=== PATIENT | male | born 1950 | race Caucasian/White ===

== ENCOUNTER 2016-12-25 14:00 | Emergency (ER) | payer MEDICARE, BC ==
[~2016-12-25] VITALS: Ht 190.5 cm; Wt 92.5 kg
[~2016-12-25 14:00] MED LIST: ACETAMINOPHEN-1 EAC1 PO; ASPIR 8181 MG; ATENOLOL50 MG; LISINOPRIL40 MG PO; OXYCODONE HCL5 MG PO; PRILOSEC20 MG; RESTASIS1 DROP OD; SIMVASTATIN40 MG
[2016-12-25] MEDS ORDERED: DILTIAZEM HCL60 MG PO (14:18)
[2016-12-25] MEDS ORDERED: LISINOPRIL20 MG PO (14:19)
[2016-12-25] MEDS ORDERED: CYCLOBENZAPRINE5 MG PO (14:19)
[2016-12-25] MEDS ORDERED: PERCOCET 5-3251 EACH PO (14:21)
[2016-12-25] MEDS ORDERED: MELATONIN5 M2 PO (14:22)
--- NOTE | 2016-12-25 22:28 | EKG ---
[facility] [address] [facility] [place] [address] Signed Normal sinus rhythm Nonspecific intraventricular conduction delay Nonspecific ST abnormality Abnormal ECG When compared with ECG of 26-OCT-2016 10:36, No significant change was found Confirmed by JENNIFER DUMAS MD ([id number]) on 12/25/2016 10:28:27 PM Electronically Signed By: JENNIFER DUMAS MD 12/25/16 2228 PATIENT NAME: JANETTE HURTRICK Electrocardiogram DATE OF : 48 PHYSICIAN: JENNIFER DUMAS MD REPORT #: [id number] REPORT IS CONFIDENTIAL AND NOT TO BE RELEASED WITHOUT AUTHORIZATION
== END 2016-12-25 17:42 | disposition short-term general hospital (02) ==
LOC: ED 14:00
DX: J93.9 Pneumothorax, unspecified (principal); I10 Essential (primary) hypertension; Z85.46 Personal history of malignant neoplasm of prostate; K21.9 Gastro-esophageal reflux disease without esophagitis; Z87.891 Personal history of nicotine dependence; Z79.82 Long term (current) use of aspirin; Z79.899 Other long term (current) drug therapy
CPT/HCPCS: 71020; 80053; 84484; 85025; 93005; 93010; 99285

== ENCOUNTER 2017-04-30 16:20 | Emergency (ER) | payer MEDICARE, BC ==
[~2017-04-30] VITALS: Ht 190.5 cm; Wt 92.5 kg
--- OUTSIDE RECORDS SUMMARY | ~2017-04-30 | XMS | Clinical Summary ---
Demographics + + + | Address | [address] [place] [address] | | | [place] [address] | + + + | Home Phone | | + + + | Preferred Language | Unknown | + + + | Marital Status | | + + + | Yazdanism Affiliation | JAVIER CATHOL | + + + | Race | White | + + + | Ethnic Group | Not or | + + + Author + + + | Author | [facility] | + + + | Organization | [facility] | + + + | Address | Unknown | + + + | Phone | Unavailable | + + + Support + + +---------+ + | Name | Relationship | Address | Phone | + + +---------+ + | JIGNESH RODAS | ECON | Unknown | | + + +---------+ + | LORRAINE RODAS | ECON | Unknown | | + + +---------+ + Care Team Providers + +------+ + | Care Hone Operator Name | Role | Phone | + +------+ + | Mark Roque MD | PP | | + +------+ + Allergies + + + + + + | Active Allergy | Reactions | Severity | Noted | Comments | | | | | Date | | + + + + + + | Nsaids | Other (See Comments) | Low | 05/31/19 | GI PAIN, BLEED | | (Non-Steroidal | | | 14 | | | Anti-Inflammatory | | | | | | Drug) | | | | | + + + + + + Current Medications + + +---------+---------+------+------+-------+ | Prescription | Sig. | Disp. | Refills | Star | End | Statu | | | | | | t | Date | s | | | | | | Date | | | + + +---------+---------+------+------+-------+ | atenolol | Take 50 mg by mouth | | | | | Activ | | (TENORMIN) 50 mg | Daily | | | | | e | | tablet | | | | | | | + + +---------+---------+------+------+-------+ | lisinopril | Take 20 mg by mouth | | | | | Activ | | (PRINIVIL;ZESTRIL) | 2 Times Daily | | | | | e | | 20 mg tablet | | | | | | | + + +---------+---------+------+------+-------+ | simvastatin | Take 40 mg by mouth | | | | | Activ | | (ZOCOR) 40 mg tablet | At Bedtime | | | | | e | + + +---------+---------+------+------+-------+ | omeprazole | Take 20 mg by mouth | | | | | Activ | | (PRILOSEC) 20 mg | Daily | | | | | e | | capsule | | | | | | | + + +---------+---------+------+------+-------+ | aspirin 81 mg EC | Take 81 mg by mouth | | | | | Activ | | tablet | Daily | | | | | e | + + +---------+---------+------+------+-------+ | Cholecalciferol, | Take 2 capsules by | | | | | Activ | | Vitamin D3, (VITAMIN | mouth Daily | | | | | e | | D-3) 2,000 unit Cap | | | | | | | + + +---------+---------+------+------+-------+ | MULTI-VITAMIN ORAL | Take 1 tablet by | | | | | Activ | | | mouth Daily | | | | | e | + + +---------+---------+------+------+-------+ | cycloSPORINE | 1 drop 2 Times Daily | | | | | Activ | | (RESTASIS) 0.05 % | | | | | | e | | ophthalmic emulsion | | | | | | | + + +---------+---------+------+------+-------+ | Melatonin 3 mg Tab | Take 1 tablet by | | | | | Activ | | | mouth Daily | | | | | e | + + +---------+---------+------+------+-------+ | | Take 1 tablet by | | | | | Activ | | ACETAMINOPHEN/DIPHEN | mouth Every Evening | | | | | e | | HYDRAMINE (TYLENOL | | | | | | | | PM ORAL) | | | | | | | + + +---------+---------+------+------+-------+ | | 1 drop As Needed | | | | | Activ | | carboxymethylcellulo | | | | | | e | | se (REFRESH PLUS) | | | | | | | | 0.5 % Dpet | | | | | | | + + +---------+---------+------+------+-------+ | hyoscyamine | Place 1 tablet (125 | 30 | 0 | 04/2 | | Activ | | sulfate (ANASPAZ) | mcg total) under the | tablet | | 3/20 | | e | | 0.125 mg | tongue Every 6 | | | 14 | | | | disintegrating | Hours As Needed | | | | | | | tablet | | | | | | | + + +---------+---------+------+------+-------+ | oxyCODONE | Take 1-2 tablets | 50 | 0 | 04/2 | | Activ | | (ROXICODONE) 5 mg | (5-10 mg total) by | tablet | | 3/20 | | e | | immediate release | mouth Every 3 Hours | | | 14 | | | | tablet | As Needed for Pain | | | | | | | | (moderate) | | | | | | + + +---------+---------+------+------+-------+ | docusate sodium | Take 1 capsule (100 | 60 | 0 | 04/2 | | Activ | | (COLACE) 100 mg | mg total) by mouth 2 | capsule | | 3/20 | | e | | capsule | Times Daily As | | | 14 | | | | | Needed for | | | | | | | | Constipation | | | | | | + + +---------+---------+------+------+-------+ Active Problems + + + | Problem | Noted Date | + + + | Malignant neoplasm of prostate (HCC) | 06/18/2013 | + + + Social History + +-------+ +--------+ + | Tobacco Use | Types | Packs/Day | Years | Date | | | | | Used | | + +-------+ +--------+ + | Former Smoker | | 1 | 25 | Quit: 03/01/1988 | + +-------+ +--------+ + + +---+---+---+ | Smokeless Tobacco: | | | | | Never Used | | | | + +---+---+---+ + + | Comments: A CIGAR 1/WEEK | + + + + +---------+ + | Alcohol Use | Drinks/We | oz/Week | Comments | | | ek | | | + + +---------+ + | Yes | 4 | 9.6 | | | | Glasses | | | | | of wine | | | | | 12 Shots | | | | | of liquor | | | + + +---------+ + + + + | Sex Assigned at | Date Recorded | | | | + + + | Not on file | | + + + Last Filed Vital Signs + + + + | Vital Sign | Reading | Time Taken | + + + + | Blood Pressure | 134/72 | 06/18/2013 11:35 AM PDT | + + + + | Pulse | 51 | 06/18/2013 11:35 AM PDT | + + + + | Temperature | 36.4 C (97.5 F) | 06/18/2013 11:35 AM PDT | + + + + | Respiratory Rate | 16 | 06/18/2013 11:35 AM PDT | + + + + | Oxygen Saturation | 96% | 06/18/2013 11:35 AM PDT | + + + + | Inhaled Oxygen | - | - | | Concentration | | | + + + + | Weight | 100 kg (220 lb 7.4 | 06/18/2013 3:56 AM PDT | | | oz) | | + + + + | Height | 190.5 cm (6' 3") | 06/17/2013 10:33 AM PDT | + + + + | Body Mass Index | 27.56 | 06/18/2013 3:56 AM PDT | + + + + Plan of Treatment + + + + + | Health Maintenance | Due Date | Last Done | Comments | + + + + + | AAA Screening | | | | | | 9 | | | + + + + + | Hep C Ab Screening | | | | | | 9 | | | + + + + + | Tetanus | | | | | | 8 | | | + + + + + | Colon Cancer | | | | | Screening | 9 | | | + + + + + | Zoster Vaccine | | | | | | 9 | | | + + + + + | Pneumo 65+ (1 of 2 - | | | | | PCV13) | 4 | | | + + + + + | IMM Influenza (#1) | | | | | | 7 | | | + + + + + Results Not on filefrom Last 3 Months Insurance + +--------+ +--------+ + + | Payer | Benefi | Subscriber | Type | Phone | Address | | | t Plan | ID | | | | | | / | | | | | | | Group | | | | | + +--------+ +--------+ + + | BLUE CROSS | BLUE | [id number] | Indemn | [phone] [address] | | | CROSS | | [place] | [phone] | [place] | | | [place] | | | | [phone] | | | L | | | | | | | MCARE | | | | | | | SUPPLE | | | | | | | MENT | | | | | + +--------+ +--------+ + + | MEDICARE | MEDICA | [id number] | Medica | [phone] [address] | | | RE A & | | re | [phone] | [place] [phone] | | | B | | | | | + +--------+ +--------+ + + + +--------+ +--------+ + + | Guarantor Name | Accoun | Relation to | Date | Phone | Billing Address | | | t Type | Patient | of | | | | | | | | | | + +--------+ +--------+ + + | JANETTE RODAS | Person | Self [birth year] | Home: | [address] | | | al/Fam | | 1950 | [phone] [place] | | | [place] | | | [phone] | + +--------+ +--------+ + + Advance Directives Patient has advance directives. For more information, please contact:[employer] [place] [address]
--- OUTSIDE RECORDS SUMMARY | ~2017-04-30 | XMS | Clinical Summary ---
Demographics + + + | Address | [address] | | | [place] [address] | + + + | Home Phone | | + + + | Preferred Language | Unknown | + + + | Marital Status | | + + + | Jain Affiliation | Unknown | + + + | Race | Unknown | + + + | Ethnic Group | Other Race | + + + Author + + + | Author | [facility] | + + + | Organization | [facility] | + + + | Address | Unknown | + + + | Phone | Unavailable | + + + Care Team Providers + +------+ + | Care Pediatric Assistant Name | Role | Phone | + +------+ + PP | Unavailable | + +------+ + Source Comments VETO is fully live on both [facility] and [facility] InPatient.[facility] Allergies Not on File Current Medications Not on file Active Problems Not on file Social History + +-------+ +--------+------+ | Tobacco [...] on file | | + + + Plan of Treatment + + + + + | Health Maintenance | Due Date | Last Done | Comments | + + + + + | INFLUENZA VACCINE | | | | | (FLU SHOT) | 7 | | | + + + + + Results Not on filefrom Last 3 Months"
--- OUTSIDE RECORDS SUMMARY | ~2017-04-30 | XMS | Clinical Summary ---
Demographics + + + | Address | [address] | | | [place] [address] | + + + | Home Phone | | + + + | Preferred Language | Unknown | + + + | Marital Status | | + + + | Congregation Affiliation | Unknown | + + + | Race | Unknown | + + + | Ethnic Group | Other Race | + + + Author + + + | Author | [facility] | + + + | Organization | [facility] | + + + | Address | Unknown | + + + | Phone | Unavailable | + + + Care Team Providers + +------+ + | Care Nail Professional Name | Role | Phone | + +------+ + PP | Unavailable | + +------+ + Source Comments VETO is fully live on both [facility] and [facility] InPatient.[facility] Allergies Not on File Current Medications Not [...]
--- OUTSIDE RECORDS SUMMARY | ~2017-04-30 | XMS | Clinical Summary ---
Demographics + + + | Address | [address] [place] [address] | | | [place] [address] | + + + | Home Phone | | + + + | Preferred Language | Unknown | + + + | Marital Status | | + + + | Buddhism Affiliation | JAVIER CATHOL | + + [...] Team Providers + +------+ + | Care Environmental Law Professor Name | Role | Phone | + [...] + | BLUE CROSS | BLUE | [id number] | Indemn | [phone] | [address] | | | CROSS | | [place] | [phone] | [place] | | | [place] | | | | [phone] | | | L | | | | | | | MCARE | | | | | | | SUPPLE | | | | | | | MENT | | | | | + +--------+ +--------+ + + | MEDICARE | MEDICA | [id number] | Medica | [phone] | [address] | | | RE A & | | re | [phone] | [place] [address] | | | B | | | [...] | | | [place] | | | [phone] | [phone] | + +--------+ +--------+ + + Advance Directives Patient has advance directives. For more information, please contact:[employer] [place] [address]
[~2017-04-30 16:20] MED LIST changes: +CYCLOBENZAPRINE5 MG PO; +DILTIAZEM HCL60 MG PO; +LISINOPRIL20 MG PO; +MELATONIN5 M2 PO; +PERCOCET 5-3251 EACH PO
== END 2017-04-30 17:27 | disposition home or self-care (01) ==
LOC: ED 16:20
PROC: 0HQGXZZ Repair Left Hand Skin, External Approach (ICD-10-PCS; principal; 2017-04-30)
DX: S61.412A Laceration without foreign body of left hand, initial encounter (principal); I10 Essential (primary) hypertension; Z87.891 Personal history of nicotine dependence; Z88.6 Allergy status to analgesic agent; Z79.82 Long term (current) use of aspirin; Z79.899 Other long term (current) drug therapy; W27.8XXA Contact with other nonpowered hand tool, initial encounter
CPT/HCPCS: 12001; 99282

== ENCOUNTER 2019-01-31 18:12 | Emergency (ER) | payer MEDICARE, BC ==
[~2019-01-31] VITALS: Ht 190.5 cm; Wt 96.2 kg
--- OUTSIDE RECORDS SUMMARY | ~2019-01-31 | XMS | Clinical Summary ---
Demographics + + + | Address | [address] | | | [place] [address] | + + + | Home Phone | | + + + | Preferred Language | Unknown | + + + | Marital Status | | + + + | Sabianism Affiliation | CAT | + + + | Race | White | + + + | Ethnic Group | Not or | + + + Author + + + | Author | [facility] | + + + | Organization | [facility] | + + + | Address | Unknown | + + + | Phone | Unavailable | + + + Support + + + + + | Name | Relationship | Address | Phone | + + + + + | Yancy Rodas | ECON | [address] | | | | | [place] | | | | | [address] | | + + + + + Care Team Providers + +------+ + | Care Supervisor Shellfish Farming Name | Role | Phone | + +------+ + | Rosangela Bro MD | PCP | | + +------+ + Source Comments VETO is fully live on both [facility] and [facility] InPatient.[facility] Allergies No Known Allergies Medications + + + +---------+------+------+-------+ | Medication | Sig | Dispensed | Refills | Star | End | Statu | | | | | | t | Date | s | | | | | | Date | | | + + + +---------+------+------+-------+ | dilTIAZem 90 mg | Take 90 mg by mouth | | 0 | | | Activ | | oral tablet | three times daily. | | | | | e | + + + +---------+------+------+-------+ | lisinopril 20 mg | Take 20 mg by mouth | | 0 | | | Activ | | oral tablet | two times daily. | | | | | e | + + + +---------+------+------+-------+ | simvastatin 40 mg | Take 40 mg by mouth | | 0 | | | Activ | | oral tablet | once daily. | | | | | e | + + + +---------+------+------+-------+ | aspirin chewable | Chew and swallow 81 | | 0 | | | Activ | | 81 mg oral | mg once daily. | | | | | e | | tablet,chewable | | | | | | | + + + +---------+------+------+-------+ | multivitamin oral | Take 1 tablet by | | 0 | | | Activ | | tablet | mouth twice weekly | | | | | e | | | (on Sunday and | | | | | | | | Sunday). | | | | | | + + + +---------+------+------+-------+ | nitroglycerin 0.4 | Place 0.4 mg under | | 0 | | | Activ | | mg sublingual | tongue every five | | | | | e | | tablet, | minutes as needed | | | | | | | sublingualIndication | for chest pain. | | | | | | | s: took two doses | Place under tongue | | | | | | | this am | and allow to | | | | | | | | dissolve. | | | | | | | | Administer every 5 | | | | | | | | minutes, max of 3 | | | | | | | | doses in 15 minutes. | | | | | | | | Indications: took | | | | | | | | two doses this am | | | | | | + + + +---------+------+------+-------+ | imipramine 25 mg | Take 25 mg by mouth | | 0 | | | Activ | | oral tablet | once daily at | | | | | e | | | bedtime. | | | | | | + + + +---------+------+------+-------+ | melatonin 2.5 mg | Chew and swallow | | 0 | | | Activ | | oral tablet,chewable | once daily at | | | | | e | | | bedtime. | | | | | | + + + +---------+------+------+-------+ Active Problems Not on file Resolved Problems + + + + | Problem | Noted | Resolved | | | Date | Date | + + + + | Chest pain at rest | 11/06/19 | | | | 18 | 8 | + + + + Social History + + + +--------+------+ | Tobacco Use | Types | Packs/Day | Years | Date | | | | | Used | | + + + +--------+------+ | Former Smoker | Cigarettes, Cigars | 1 | | | + + + +--------+------+ + +---+---+---+ | Smokeless Tobacco: | | | | | Never Used | | | | + +---+---+---+ + + | Tobacco Cessation: Counseling Given: No | + + + + +---------+ + | Alcohol Use | Drinks/Week | oz/Week | Comments | + + +---------+ + | Yes | | | two drinks a day | + + +---------+ + + + + | Sex Assigned at | Date Recorded | | | | + + + | Not on file | | + + + + + + + | Job Start Date | Occupation | Industry | + + + + | Not on file | Not on file | Not on file | + + + + + + + + | Travel History | Travel Start | Travel End | + + + + + + | No recent travel history available. | + + Last Filed Vital Signs + + + + + | Vital Sign | Reading | Time Taken | Comments | + + + + + | Blood Pressure | 131/73 | 11/06/2017 8:30 AM | | | | | PDT | | + + + + + | Pulse | 65 | 11/06/2017 8:30 AM | | | | | PDT | | + + + + + | Temperature | 36.4 C (97.5 F) | 11/06/2017 8:30 AM | | | | | PDT | | + + + + + | Respiratory Rate | 16 | 11/06/2017 8:30 AM | | | | | PDT | | + + + + + | Oxygen Saturation | 100% | 11/06/2017 8:30 AM | | | | | PDT | | + + + + + | Inhaled Oxygen | - | - | | | Concentration | | | | + + + + + | Weight | 96.1 kg (211 lb 13.8 | 11/06/2017 6:23 AM | | | | oz) | PDT | | + + + + + | Height | 190.5 cm (6' 3") | 11/05/2017 10:22 AM | | | | | PDT | | + + + + + | Body Mass Index | 26.48 | 11/05/2017 10:22 AM | | | | | PDT | | + + + + + Plan of Treatment + + + + + | Health Maintenance | Due Date | Last Done | Comments | + + + + + | Pneumococcal | | | | | vaccination (1 of 2 | 4 | | | | - PCV13) | | | | + + + + + | Influenza (Flu) | | | | | vaccination (#1) | 9 | | | + + + + + Results Not on filefrom Last 3 Months Insurance + +--------+ +--------+ + +--------+ | Payer | Benefi | Subscriber | Effect | Phone | Address | Type | | | t Plan | ID | jim | | | | | | / | | Dates | | | | | | Group | | | | | | + +--------+ +--------+ + +--------+ | MEDICARE | MEDICA | xxxxxxxxxxx | Effect | [phone] | [address] | Medica | | | RE A & | | jim | [address] | [phone] | [address] | | | B | | for | | [place], [place] | | | | | | all | | [phone] | | | | | | dates | | | | + +--------+ +--------+ + +--------+ | [place] | BLUE | xxxxxxxxx | Effect | [phone] | [address] | PPO | | | CROSS | | jim | [address] | [phone] | | | | [place] | | for | | [place], | | | | L | | all | | [place] [address] | | | | | | dates | | | | + +--------+ +--------+ + +--------+ | MEDICARE | MEDICA | xxxxxxxxxxx | | [phone] | [address] | Medica | | | RE A & | | [phone] | [address] | [phone] | re | | | B | | esent | | [place], [place] | | | | | | | | [address] | | + +--------+ +--------+ + +--------+ | [place] | BLUE | xxxxxxxxx | 02/26/19 | [phone] | [address] | PPO | | | CROSS | | [phone] | [phone] | [phone] | | | | [place] | | sent | | [place], | | | | [place] | | | | [place] [address] | | + +--------+ +--------+ + +--------+ + +--------+ +--------+ + + | Guarantor Name | Accoun | Relation to | Date | Phone | Billing Address | | | t Type | Patient | of | | | | | | | | | | + +--------+ +--------+ + + | Faustino Rodas | Person | Self [birth year] | [address] | | | al/Fam | | 1950 | [phone] | [place] [address] | | | [place]men | | | 2 (Home) | | + +--------+ +--------+ + + | Faustino Rodas | Person | Self [birth year] | [address] | | | al/Fam | | 1950 | [phone] | [place] [address] | | | carmen | | | 2 (Home) | | + +--------+ +--------+ + + Advance Directives + + + + + | Code Status | Date | Date | Comments | | | Activated | Inactivated | | + + + + + | Full Code | 11/05/2017 | 11/06/2017 | | | | 10:21 AM | 3:10 PM | | + + + + +
--- OUTSIDE RECORDS SUMMARY | ~2019-01-31 | XMS | Encounter Summary ---
Demographics + + + | Address | [address] | | | [place] [address] | + + + | Home Phone | | + + + | Preferred Language | Unknown | + + + | Marital Status | | + + + | Sabianism Affiliation | CAT | + + + | Race | White | + + + | Ethnic Group | Not or | + + + Author + + + | Organization | Unknown | + + + | Address | Unknown | + + + | Phone | Unavailable | + + + Support + + + + + | Name | Relationship | Address | Phone | + + + + + | Yancy Rodas | ECON | [address] | | | | | [place] | | | | | [address] | | + + + + + Care Team Providers + +------+ + | Care Drill Operator Pneumatic Name | Role | Phone | + +------+ + PCP | Unavailable | + +------+ + Encounter Details +--------+ + + + + | Date | Type | Department | Care Team | Description | +--------+ + + + + | 10/08/ | Results | | Other, Faculty | | | 2001 | Only | | [phone] | | +--------+ + + + + Social History + +-------+ +--------+------+ | Tobacco Use | Types | Packs/Day | Years | Date | | | | | Used | | + +-------+ +--------+------+ | Never Assessed | | | | | + +-------+ +--------+------+ + + + | Sex Assigned at [...] recent travel history available. | + + documented as of this encounter Plan of Treatment Not on filedocumented as of this encounter Procedures + +--------+ + + + | Procedure Name | Priori | Date/Time | Associated Diagnosis | Comments | | | ty | | | | + +--------+ + + + | SURGICAL PATHOLOGY | Routin | 10/08/2001 | | Results for this | | | e | | | procedure are in the | | | | | | results section. | + +--------+ + + + documented in this encounter Results SURGICAL PATHOLOGY (10/08/2001) + + + + + + | Component | Value | Ref Range | Performed | Pathologist | | | | | At | Signature | + + + + + + | SURGICAL | THIS IS AN AMENDED | | [facility] | | | PATHOLOGY | REPORT SOURCE OF | | DEPARTMENT | | | | SPECIMEN:A Muscle, | | OF | | | | Biopsy for Neuropath | | PATHOLOGY | | | | Final Pathologic | | | | | | Diagnosis:This case is | | | | | | amended to include the | | | | | | EM results. The | | | | | | diagnosis is amended | | | | | | asfollows: Skeletal | | | | | | muscle, left deltoid, | | | | | | biopsy:Ultrastructural | | | | | | Analysis (EM #[id number]): | | | | | | - No specific | | | | | | ultrastructural | | | | | | pathologic abnormalities | | | | | | Histologic | | | | | | Analysis:Skeletal | | | | | | muscle, left deltoid, | | | | | | biopsy: - Mild | | | | | | nonspecific changes | | | | | | (see comment) Comment: | | | | | | This biopsy | | | | | | demonstrates a small | | | | | | number of ragged red | | | | | | fibers aswell as a small | | | | | | number of cytochrome | | | | | | oxidase deficient | | | | | | fibers. These raisethe | | | | | | possibility of a | | | | | | mitochondrial disorder, | | | | | | although I do not | | | | | | finddefinitive evidence | | | | | | for this on this biopsy. | | | | | | Other conditions may | | | | | | besuggested by the | | | | | | clinical presentation | | | | | | and additional studies | | | | | | can beperformed as | | | | | | clinically indicated. | | | | | | Case Amended by:Jaden | | | | | | Renuka García M.D. | | | | | | /NeuropathologistT:10/30 | | | | | | /02:re I have reviewed | | | | | | all diagnostic slides | | | | | | and have edited the | | | | | | gross and/ormicroscopic | | | | | | portion of this report | | | | | | as part of my pathologic | | | | | | assessment andfinal | | | | | | diagnosis. Clinical | | | | | | History:The patient is a | | | | | | 51 year old male who | | | | | | was found on laboratory | | | | | | examinationto have | | | | | | elevated CK enzymes. | | | | | | Additional evaluation | | | | | | excluded a | | | | | | cardiacsource. | | | | | | Medications include | | | | | | Atenolol and Aspirin. | | | | | | Gross | | | | | | Description:Received | | | | | | from Dr. Faustino Ng, | | | | | | [facility] | | | | | | [facility] [place], | | | | | | is a 1.5 x 1.1 x 1.0 cm | | | | | | fragment of tissue | | | | | | wrapped in moist | | | | | | gauze.Additionally, a | | | | | | small fragment has been | | | | | | received in | | | | | | glutaraldehyde. | | | | | | Microscopic | | | | | | Description/Histochemica | | | | | | l Analysis: Frozen | | | | | | sections arestained at | | | | | | several levels with | | | | | | hematoxylin and eosin, | | | | | | trichrome, SDH, | | | | | | NADH,cytochrome oxidase, | | | | | | and ATPase (pH 4.5 and | | | | | | 9.4), and PAS with and | | | | | | withoutdiastase | | | | | | digestion. The | | | | | | hematoxylin and eosin | | | | | | stained sections show an | | | | | | ample sized fragment | | | | | | ofskeletal muscle with | | | | | | moderate artifactual | | | | | | disruption with focal | | | | | | areas ofsevere | | | | | | disruption. No | | | | | | inflammation is | | | | | | identified. I do not | | | | | | see clearevidence of | | | | | | degenerating or | | | | | | regenerating fibers, | | | | | | however, there | | | | | | arequestionable fibers | | | | | | in regions of | | | | | | disruption. There is | | | | | | mild endomysialfibrosis. | | | | | | The muscle fibers | | | | | | show a relatively | | | | | | uniform size of | | | | | | 50-70microns in | | | | | | diameter. There is no | | | | | | increase in the number | | | | | | of central nucleiand no | | | | | | subsarcolemmal nuclear | | | | | | collections are present. | | | | | | The trichromestains | | | | | | shows three ragged red | | | | | | fibers towards the | | | | | | periphery of the | | | | | | specimenin areas of mild | | | | | | disruption. In other | | | | | | regions of the biopsy, | | | | | | there is aslight | | | | | | increase in | | | | | | subsarcolemmal staining. | | | | | | No rimmed vacuoles | | | | | | areidentified. The SDH | | | | | | stain highlights the | | | | | | three ragged red fibers, | | | | | | as wellas the fibers | | | | | | with increased rimming. | | | | | | NADH stains show | | | | | | similar findings,in | | | | | | addition, they reveal a | | | | | | modest number of | | | | | | crescents as well as | | | | | | fiberswith a moth-eaten | | | | | | disruption of the | | | | | | myofibrillar matrix. | | | | | | No cores ortargets are | | | | | | identified. The | | | | | | cytochrome oxidase stain | | | | | | reveals a smallnumber | | | | | | of deficient fibers | | | | | | (including the ragged | | | | | | red type fibers), | | | | | | however,I do not feel | | | | | | that this is clearly | | | | | | increased for a patient | | | | | | of this age.ATPase | | | | | | stains show a type 1 to | | | | | | type 2 fiber ratio of | | | | | | approximately | | | | | | 1:1-2,without evidence | | | | | | of neurogenic | | | | | | rearrangement. The PAS | | | | | | stains with andwithout | | | | | | diastase digestion do | | | | | | not show evidence of | | | | | | increased glycogen. | | | | | | Electron Microscopy EM | | | | | | #[id number]:Plastic embedded | | | | | | toluidine blue stained | | | | | | thin sections are | | | | | | examined. Thesereveal | | | | | | portions of variably | | | | | | preserved skeletal | | | | | | muscle in | | | | | | longitudinal,tangential, | | | | | | and cross section. | | | | | | There is a mild | | | | | | variation of muscle | | | | | | fiberdiameters, but no | | | | | | other pathologic | | | | | | abnormalities are | | | | | | identified.Specifically, | | | | | | no evidence of vacuolar | | | | | | degeneration or of | | | | | | subsarcolemmalaccumulati | | | | | | ons are appreciated. A | | | | | | territory representative portion | | | | | | is submitted | | | | | | forultrastructural | | | | | | analysis. No | | | | | | abnormalities are | | | | | | identified by electron | | | | | | microscopy. The | | | | | | myofibrilshave a normal | | | | | | register. No | | | | | | abnormalities of the | | | | | | basal lamina | | | | | | areappreciated. There | | | | | | are no abnormalities in | | | | | | glycogen or lipid | | | | | | contents.Mitochondria | | | | | | are present in normal | | | | | | numbers and demonstrate | | | | | | normal size,shape, and | | | | | | internal cristae | | | | | | structure. Small | | | | | | subsarcolemmal | | | | | | accumulationsof | | | | | | mitochondria are | | | | | | present, however, these | | | | | | are of unclear | | | | | | significance. | | | | | | Pre-Amended Final | | | | | | Pathologic | | | | | | Diagnosis:Skeletal | | | | | | muscle, left deltoid, | | | | | | biopsy: - Mild | | | | | | nonspecific changes | | | | | | (see comment) Comment: | | | | | | This biopsy | | | | | | demonstrates a small | | | | | | number of ragged red | | | | | | fibers aswell as a small | | | | | | number of cytochrome | | | | | | oxidase deficient | | | | | | fibers. These raisethe | | | | | | possibility of a | | | | | | mitochondrial disorder, | | | | | | although I do not | | | | | | finddefinitive evidence | | | | | | for this on this biopsy. | | | | | | Other conditions may | | | | | | besuggested by the | | | | | | clinical presentation | | | | | | and additional studies | | | | | | can beperformed as | | | | | | clinically indicated. | | | | | | Case reviewed by:Jaden | | | | | | Renuka García M.D. | | | | | | /NeuropathologistT:10/14 | | | | | | /fOriginal sign out | | | | | | date on 10/14/01 by | | | | | | Jaden García, | | | | | | Ph.D.,M.D./Neuropatholog | | | | | | istRendering | | | | | | Diagnostician: Jaden | | | | | | García | | | | | | M.D.,Ph.D.PathologistEle | | | | | | ctronically Signed | | | | | | 10/30/2001Comment: | | | | | | SOURCE OF SPECIMEN: | | | | | | Muscle, Biopsy for | | | | | | Neuropath | | | | + + + + + + + + | Specimen | + + | | + + + + + | Narrative | Performed At | + + + | Ordered by [facility] | | | DEPARTMENT OF | | | PATHOLOGY | + + + + + + + + | Performing | Address | City/State/Zipcode | Phone Number | | Organization | | | | + + + + + | [facility] | [address] | [place] [address] | | | PATHOLOGY | [address] | | | + + + + + | [facility] DEPARTMENT OF | [address] | [place] [address] | | | PATHOLOGY | [facility] | | | + + + + + documented in this encounter Visit Diagnoses Not on filedocumented in this encounter"
--- OUTSIDE RECORDS SUMMARY | ~2019-01-31 | XMS | Encounter Summary ---
Demographics + + + | Address | [address] | | | [place] [address] | + + + | Home Phone | | + + + | Preferred Language | Unknown | + + + | Marital Status | | + + + | Rastafari Affiliation | 1041 | + + + | Race | Unknown | + + + | Ethnic Group | Unknown | + + + Author + + + | Author | [facility] | | | and [place] | + + + | Organization | [facility] | | | and [place] | + + + | Address | Unknown | + + + | Phone | Unavailable | + + + Support + + + + + | Name | Relationship | Address | Phone | + + + + + | Yancy Rodas | ECON | [address] | | | | | [place] | | | | | [address] | | + + + + + Care Team Providers + +------+ + | Care Factory Process Workers Name | Role | Phone | + +------+ + PCP | Unavailable | + +------+ + Encounter Details +--------+ + + + + | Date | Type | Department | Care Team | Description | +--------+ + + + + | 07/26/ | [facility] | [facility] | Faustino Price MD | | | 2010 | Encounter | MED CTR MP INTRA OP | [address], [place] | | | | | [address] | [address] [place] | | | | | [place] | [address] | | | | | [address] | | | | | | [phone] | | | +--------+ + + + + [...] | + +--------+ + + + | HELICOBACTER PYLORI | Routin | 07/26/2010 | | Results for this | | BIOPSY | e | 1:11 PM | | procedure are in the | | | | PDT | | results section. | + +--------+ + + + documented in this encounter Results Helicobactor pylori Biopsy (07/26/2010 1:11 PM PDT) + + + + + + | Component | Value | Ref Range | Performed | Pathologist | | | | | At | Signature | + + + + + + | GASTRIC | Negative for Urease | | [facility] | | | BIOPSY | | | [facility] | | | UREASE TEST | | | [facility]ICAL | | | | | | [facility] - | | | | | | LABORATORY | | + + + + + + + + | Specimen | + + | | + + + + + + + | Performing | Address | City/State/Zipcode | Phone Number | | Organization | | | | + + + + + | [facility] | [address] | [place], [place] | [phone] | | [facility] | | [address] | | | - LABORATORY | | | | + + + + + | [facility] | [address] | [place] | | | [facility] | | [address] | | | - LABORATORY | | | | + + + + + documented in this encounter Visit Diagnoses Not on filedocumented in this encounter"
--- OUTSIDE RECORDS SUMMARY | ~2019-01-31 | XMS | Encounter Summary ---
Demographics + + + | Address | [address] | | | [place] [address] | + + + | Home Phone | | + + + | Preferred Language | Unknown | + + + | Marital Status | | + + + | Advent Affiliation | 1041 | + + + | Race | Unknown | + + + | Ethnic Group | Unknown | + + + Author + + + | Author | [facility] | | | and [place] | + + + | Organization | [facility] | | | and [place] | [...] [place] | | | | | [address] | | + + + + + Care Team Providers + +------+ + | Care Laborer Carpentry Dock Name | Role | Phone | + +------+ + | Manjit Roque MD | PCP | | + +------+ + Reason for Visit +--------+ + | Reason | Comments | +--------+ + | Other | | +--------+ + Encounter Details +--------+ + + + + | Date | Type | Department | Care Team | Description | +--------+ + + + + | 05/02/ | Telephone | [facility] | Faustino Price MD | Other | | 2012 | | GASTROENTEROLOGY | [address], [place] | | | | | [address] | [address] [place], [place] | | | | | [address] [place], [place] | [address] | | | | | [address] | | | | | | [phone] | | | +--------+ + + + + Social History + +--------+ +--------+------+ | Tobacco Use | Types | Packs/Day | Years | Date | | | | | Used | | + +--------+ +--------+------+ | Current Some Day | Cigars | | | | | Smoker | | | | | + +--------+ +--------+------+ + +---+---+---+ | Smokeless Tobacco: | | | | | Never Used | | | | + +---+---+---+ + + +---------+ + | Alcohol Use | Drinks/Week | oz/Week | Comments | + + +---------+ + | Yes | | | socially | + + +---------+ + + + [...] Not on filedocumented as of this encounter Visit Diagnoses Not on filedocumented in this encounter"
--- OUTSIDE RECORDS SUMMARY | ~2019-01-31 | XMS | Encounter Summary ---
Demographics + + + | Address | [address] | | | [place] [address] | + + + | Home Phone | | + + + | Preferred Language | Unknown | + + + | Marital Status | | + + + | Congregational Affiliation | 1041 | + + + | Race | Unknown | + + + | Ethnic Group | Unknown | + + + Author + + + | Author | [facility] | | | and [place] | + + + | Organization | [facility] | | | and [place] | + + + | Address | Unknown | + + + | Phone | Unavailable | + + + Support + + + + + | Name | Relationship | Address | Phone | + + + + + | Yancy Rodas | ECON | [address] | | | | | [place] | | | | | [address] | | + + + + + Care Team Providers + +------+ + | Care Centrifuge Separator Operator Name | Role | Phone | + +------+ + | Manjit Roque MD | PCP | | + +------+ + Encounter Details +--------+ + + + + | Date | Type | Department | Care Team | Description | +--------+ + + + + | 09/23/ | Orders Only | [facility] | Provider, | | | 2018 | | SYSTEM GENERIC OP | [address] | | | | | [address] | [address] | | | | | [address] [place], [place] | [place] [address] | | | | | [address] | | | | | | [phone] | | | +--------+ + + + + Social History + +--------+ +--------+------+ | Tobacco Use | Types | Packs/Day | Years | Date | | | | | Used | | + +--------+ +--------+------+ | Former Smoker | Cigars | | | | + +--------+ +--------+------+ + +---+---+---+ | Smokeless Tobacco: | | | | | Never Used | | | | + +---+---+---+ + + | Comments: occaisonal cigar use, nothing for the past 1.5 years | + + + + +---------+ + | Alcohol Use | Drinks/Week | oz/Week | Comments | + + +---------+ + | Yes | | | Alcoholic | | | | | Drinks/day: daily | + + +---------+ + + + [...]
--- OUTSIDE RECORDS SUMMARY | ~2019-01-31 | XMS | Encounter Summary ---
Demographics + + + | Address | [address] | | | [place] [address] | + + + | Home Phone | | + + + | Preferred Language | Unknown | + + + | Marital Status | | + + + | Taoism Affiliation | 1041 | + + + | Race | Unknown | + + + | Ethnic Group | Unknown | + + + Author + + + | Author | [facility] | | | and [place] | + + + | Organization | [facility] | | | and [place] [...] [place] | | | | | [address] | | + + + + + Care Team Providers + +------+ + | Care Cement Mixer Driver Name | Role | Phone | + +------+ + PCP | Unavailable | + +------+ + Encounter Details +--------+ + + + + | Date | Type | Department | Care Team | Description | +--------+ + + + + | 07/26/ | [facility] | [facility] | Faustino Price MD | | | 2010 | Encounter | MED CTR MP INTRA OP | [address], [place] | | | | | [address] | [address] [place] | | | | | [place] | [address] | | | | | [address] | | | | | | [phone] | | | +--------+ + + + [...] ST. | [address] | [place], [place] | [phone] | | [facility] | | [address] | | | - LABORATORY | | | | + + + + + | [facility] | [address] | [place] | | | [facility] | | [address] | | | - LABORATORY | | | | + + + + + documented in this encounter Visit Diagnoses Not on filedocumented in this encounter"
--- OUTSIDE RECORDS SUMMARY | ~2019-01-31 | XMS | Encounter Summary ---
Demographics + + + | Address | [address] | | | [place] [address] | + + + | Home Phone | | + + + | Preferred Language | Unknown | + + + | Marital Status | | + + + | Zoroastrianism Affiliation | 1041 | + + + | Race | Unknown | + + + | Ethnic Group | Unknown | + + + Author + + + | Author | [facility] | | | and [place] | + + + | Organization | [facility] | | | and [place] | + + + | Address | Unknown | + + + | Phone | Unavailable | + + + Support + + + + + | Name | Relationship | Address | Phone | + + + + + | Yancy Rodas | ECON | [address] | | | | | [place], [place] | | | | | [address] | | + + + + + Care Team Providers + +------+ + | Care Small Engine Specialist Name | Role | Phone | + +------+ + PCP | Unavailable | + +------+ + Encounter Details +--------+ + + + + | Date | Type | Department | Care Team | Description | +--------+ + + + + | 07/16/ | Hospital | [facility] | | | | 1991 | Encounter | MED CTR XRAY [address] | | | | | [address] [place] | | | | | | [place] [address] | | | | | | [phone] | | | +--------+ + + + [...]
--- OUTSIDE RECORDS SUMMARY | ~2019-01-31 | XMS | Encounter Summary ---
Demographics + + + | Address | [address] | | | [place] [address] | + + + | Home Phone | | + + + | Preferred Language | Unknown | + + + | Marital Status | | + + + | Methodist Affiliation | 1041 | + + + | Race | Unknown | + + + | Ethnic Group | Unknown | + + + Author + + + | Author | [facility] | | | and [place] | + + + | Organization | [facility] | | | and [place] | + + + | Address | Unknown | + + + | Phone | Unavailable | + + + Support + + + + + | Name | Relationship | Address | Phone | + + + + + | Yancy Rodas | ECON | [address] | | | | | [place] | | | | | [address] | | + + + + + Care Team Providers + +------+ + | Care Knife Sharpener Name | Role | Phone | + +------+ + | Manjit Roque MD | PCP | | + +------+ + Encounter Details +--------+ + + + + | Date | Type | Department | Care Team | Description | +--------+ + + + + | 04/18/ | Abstract | [facility] | Faustino Price MD | | | 2012 | | GASTROENTEROLOGY | [address], [place] | | | | | [address] | [address] [place], [place] | | | | | [address] [place], [place] | [address] | | | | | [address] | | | | | | [phone] | | | +--------+ + + + + Social History + +-------+ +--------+------+ | Tobacco Use | Types | Packs/Day | Years | Date | | | | | Used | | + +-------+ +--------+------+ | Current Some Day | | | | | | Smoker | | | | | + +-------+ +--------+------+ + + +---------+ + | Alcohol Use [...]
--- OUTSIDE RECORDS SUMMARY | ~2019-01-31 | XMS | Encounter Summary ---
Demographics + + + | Address | [address] | | | [place] [address] | + + + | Home Phone | | + + + | Preferred Language | Unknown | + + + | Marital Status | | + + + | Zoroastrianism Affiliation | 1041 | + + + | Race | Unknown | + + + | Ethnic Group | Unknown | + + + Author + + + | Author | [facility] | | | and Markana | + + + | Organization | [facility] | | | and Markana | + + + | Address | Unknown | + + + | Phone | Unavailable | + + + Support + + + + + | Name | Relationship | Address | Phone | + + + + + | Yancy Rodas | ECON | [address] | | | | | [place] | | | | | [address] | | + + + + + Care Team Providers + +------+ + | Care Employment Service Specialist Name | Role | Phone | + +------+ + | Manjit Roque MD | PCP | | + +------+ + Encounter Details +--------+ + + + + | Date | Type | Department | Care Team | Description | +--------+ + + + + | 04/30/ | [facility] | [facility] | Faustino Price MD | | | 2012 | Encounter | MED CTR MP INTRA OP | [address], [place] | | | | | [address] | [address] [place], [place] | | | | | [place], [place] | [address] | | | | | [address] | | | | | | [phone] | | | +--------+ + + + [...] + + documented as of this encounter Medications at Time of Discharge + + + +---------+ + + | Medication | Sig | Dispensed | Refills | Start | End Date | | | | | | Date | | + + + +---------+ + + | aspirin (ASPIRIN | Take 81 mg by mouth | | 0 | 11/10/19 | | | LOW DOSE) 81 MG | Daily. | | | 12 | | | tablet | | | | | | + + + +---------+ + + | atenolol | Take 25 mg by mouth | | 0 | 11/10/19 | | | (TENORMIN) 25 mg | Daily. | | | 12 | | | tablet | | | | | | + + + +---------+ + + | Calcium | TABS one by mouth | | 0 | 11/10/19 | | | Carbonate-Vitamin D | daily | | | 12 | | | (CALCIUM + D PO) | | | | | | + + + +---------+ + + | Cholecalciferol | Take 2,000 Units by | | 0 | | | | (VITAMIN D3) 2000 | mouth Daily. | | | | | | UNITS CAPS | | | | | | + + + +---------+ + + | cyclobenzaprine | Take 10 mg by mouth | | 0 | | | | (FLEXERIL) 10 mg | 3 times daily as | | | | | | tablet | needed. | | | | | + + + +---------+ + + | | Take 1-2 tablets by | | 0 | | | | HYDROcodone-acetamin | mouth every 6 hours | | | | | | ophen (VICODIN) | as needed. | | | | | | 5-500 mg per tablet | | | | | | + + + +---------+ + + | HYDROCORTISONE, | Apply 1 Application | | 0 | | | | TOPICAL, 1 % GEL | topically as needed. | | | | | + + + +---------+ + + | lisinopril | Take 5 mg by mouth | | 0 | 11/10/19 | | | (PRINIVIL, ZESTRIL) | Daily. | | | 12 | | | 5 mg tablet | | | | | | + + + +---------+ + + | melatonin 3 mg | Take 3 mg by mouth | | 0 | | | | TABS | nightly as needed. | | | | | + + + +---------+ + + | nitroglycerin | Place 0.4 mg under | | 0 | | | | (NITROSTAT) 0.4 mg | the tongue every 5 | | | | | | SL tablet | minutes as needed. | | | | | + + + +---------+ + + | [place]-3 Fatty | CAPS one by mouth 3 | | 0 | 11/10/19 | | | Acids (FISH OIL PO) | times a week | | | 12 | | + + + +---------+ + + | omeprazole | Take 20 mg by mouth | | 0 | 11/10/19 | | | (PRILOSEC) 20 mg | Daily. | | | 12 | | | capsule | | | | | | + + + +---------+ + + | simvastatin | Take 40 mg by mouth | | 0 | 11/10/19 | | | (ZOCOR) 40 mg tablet | Daily. | | | 12 | | + + + +---------+ + + documented as of this encounter Plan of Treatment Not on filedocumented as of this encounter Procedures + +--------+ + + + | Procedure Name | Priori | Date/Time | Associated Diagnosis | Comments | | | ty | | | | + +--------+ + + + | HELICOBACTER PYLORI | Routin | 04/30/2012 | | Results for this | | BIOPSY | e | 1:27 PM | | procedure are in the | | | | PST | | results section. | + +--------+ + + + | HELICOBACTER PYLORI | Routin | 04/30/2012 | | Results for this | | BIOPSY | e | 1:27 PM | | procedure are in the | | | | PST | | results section. | + +--------+ + + + documented in this encounter Results Helicobactor pylori Biopsy (04/30/2012 1:27 PM PST) + + + + + + | Component | Value | Ref Range | Performed | Pathologist | | | | | At | Signature | + + + + + + | GASTRIC | Negative for Urease | | [facility] | | | [facility] | | | [facility] | | | UREASE TEST | | [...] | + + + + + | [facility] | [address] | [place] | [phone] | | [facility] | | [address] | | | - LABORATORY | | | | + + + + + | [facility] | [address] | [place] | | | [facility] | | [address] | | | - LABORATORY | | | | + + + + + Helicobactor pylori Biopsy (04/30/2012 1:27 PM PST) + + + + + + | Component | Value | Ref Range | Performed | Pathologist | | | | | At | Signature | + + + + + + | GASTRIC | [facility] BIOPSY: | | [facility] | | | BIOPSY | Negative for Urease | | [facility] | | | UREASE TEST | | | MEDICAL | | | | | | CENTER - | | | | | | LABORATORY | | + + + + + + + + | Specimen | + + | Soft tissue sample | | (specimen) - Other | + + + + + | Narrative | Performed At | + + + | Collect By: Nurse | [facility] | | | [facility] | | | [facility] | | | - LABORATORY | + + + + + + + + | Performing | Address | City/State/Zipcode | Phone Number | | Organization | | | | + + + + + | [facility] | [address] | [place] | [phone] | | [facility] | | [address] | | | - LABORATORY | | | | + + + + + | [facility] | [address] | [place] | | | [facility] | | [address] | | | - LABORATORY | | | | + + + + + documented in this encounter Visit Diagnoses Not on filedocumented in this encounter"
--- OUTSIDE RECORDS SUMMARY | ~2019-01-31 | XMS | Encounter Summary ---
Demographics + + + | Address | [address] | | | [place] [address] | + + + | Home Phone | | + + + | Preferred Language | Unknown | + + + | Marital Status | | + + + | Pentecostalism Affiliation | 1041 | + + + | Race | Unknown | + + + | Ethnic Group | Unknown | + + + Author + + + | Author | [facility] | | | and Markana | + + + | Organization | [facility] | | | and Markana | [...] [place] | | | | | [address] | | + + + + + Care Team Providers + +------+ + | Care Ultrasound Supervisor Name | Role | Phone | + +------+ + | Manjit Roque MD | PCP | | + +------+ + Encounter Details +--------+ + + + + | Date | Type | Department | Care Team | Description | +--------+ + + + + | 04/30/ | [facility] | [facility] | Faustino Price MD | | | 2012 | Encounter | MED CTR MP INTRA OP | [address], [place] | | | | | [address] | [address] [place], [place] | | | | | [place], [place] | [address] | | | | | [address] | | | | | | [phone] | | | +--------+ + + + [...] + + + +---------+ + + | [place]-3 Fatty | CAPS one by mouth 3 [...] + | [facility] | [address] | [place] | [phone] | | [facility] | | [address] | | | - LABORATORY | | | | + + + + + | [facility] | [address] | [place] | | | [facility] | | [address] | | | - LABORATORY | | [address] | [place] | [phone] | | [facility] | | [address] | | | - LABORATORY | | | | + + + + + | [facility] | [address] | [place] | | | [facility] | | [address] | | | - LABORATORY | | | | + + + + + documented in this encounter Visit Diagnoses Not on filedocumented in this encounter"
--- OUTSIDE RECORDS SUMMARY | ~2019-01-31 | XMS | Encounter Summary ---
Demographics + + + | Address | [address] | | | [place] [address] | + + + | Home Phone | | + + + | Preferred Language | Unknown | + + + | Marital Status | | + + + | Rastafari Affiliation | 1041 | + + + | Race | Unknown | + + + | Ethnic Group | Unknown | + + + Author + + + | Author | [facility] | | | and Markana | + + + | Organization | [facility] | | | and Markana [...] [place] | | | | | [address] | | + + + + + Care Team Providers + +------+ + | Care Project Planner Name | Role | Phone | + +------+ + | Manjit Roque MD | PCP | | + +------+ + Reason for Visit + + + | Reason | Comments | + + + | Gastroesophageal | | | Reflux | | + + + Encounter Details +--------+ + + + + | Date | Type | Department | Care Team | Description | +--------+ + + + + | 02/06/ | Telephone | [facility] | Faustino Price MD | Gastroesophageal | | 2011 | | GASTROENTEROLOGY | [address], [address] | Reflux | | | | [address] | [address] [place], [place] | | | | | [address] [place], [place] | [address] | | | | | [address] | | | | | | [phone] | | | +--------+ + + + [...]
--- OUTSIDE RECORDS SUMMARY | ~2019-01-31 | XMS | Encounter Summary ---
Demographics + + + | Address | [address] | | | [place] [address] | + + + | Home Phone | | + + + | Preferred Language | Unknown | + + + | Marital Status | | + + + | Worship Affiliation | 1041 | + + + | Race | Unknown | + + + | Ethnic Group | Unknown | + + + Author + + + | Author | [facility] | | | and Markana | + + + | Organization | [facility] | | | and Markana [...] [place] | | | | | [address] | | + + + + + Care Team Providers + +------+ + | Care Funnel Coater Name | Role | Phone | + +------+ + | Manjit Roque MD | PCP | | + +------+ + Encounter Details +--------+ + + + + | Date | Type | Department | Care Team | Description | +--------+ + + + + | 12/25/ | Hospital | C GENERIC IP | Conversion | Diagnosis unknown | | 2017 | Encounter | CONVERSION [address] | Transaction, | | | | | [address] | Provider Unknown | | | | | [place], [place] | [phone] | | | | | [address] | | | | | | [phone] | | | +--------+ + + + [...] + + + +---------+ + + | [place]-3 Fatty | CAPS one by mouth 3 [...] | + +--------+ + + + | XR CHEST 2 VIEWS | Routin | 12/25/2016 | | Results for this | | | e | 5:00 PM | | procedure are in the | | | | PDT | | results section. | + +--------+ + + + documented in this encounter Results XR Chest 2 Vws (12/25/2016 5:00 PM PDT) + + | Specimen | + + | | + + + + + | Narrative | Performed At | + + + | This is a non-reportable procedure without a radiologist report and | | | is used for image storage only | | + + + + + | Procedure Note | + + | Roe Galicia - 10/10/2018 2:42 AM PDT This is a non-reportable procedure | | without a radiologist report and isused for image storage only | + + documented in this encounter Visit Diagnoses + + | Diagnosis | + + | Diagnosis unknown Other unknown and unspecified cause of morbidity or mortality | + + documented in this encounter"
--- OUTSIDE RECORDS SUMMARY | ~2019-01-31 | XMS | Encounter Summary ---
Demographics + + + | Address | [address] | | | [place] [address] | + + + | Home Phone | | + + + | Preferred Language | Unknown | + + + | Marital Status | | + + + | Church Affiliation | 1041 | + + + | Race | Unknown | + + + | Ethnic Group | Unknown | + + + Author + + + | Author | [facility] | | | and Markana | + + + | Organization | [facility] | | | and [...] [place] | | | | | [address] | | + + + + + Care Team Providers + +------+ + | Care Auxiliary Plant Operator Name | Role | Phone | + +------+ + | Manjit Roque MD | PCP | | + +------+ + Reason for Visit + + + | Reason | Comments | + + + | Appointment | | + + + Encounter Details +--------+ + + + + | Date | Type | Department | Care Team | Description | +--------+ + + + + | 04/25/ | Telephone | [facility] | Faustino Price MD | Appointment | | 2012 | | GASTROENTEROLOGY | [address], [address] | | | | | [address] | [address] [place], [place] | | | | | [address] [place], [place] | [address] | | | | | [address] | | | | | | [phone] | | | +--------+ + + + [...]
--- OUTSIDE RECORDS SUMMARY | ~2019-01-31 | XMS | Encounter Summary ---
Demographics + + + | Address | [address] | | | [place] [address] | + + + | Home Phone | | + + + | Preferred Language | Unknown | + + + | Marital Status | | + + + | Orthodoxy Affiliation | CAT | + + + | Race | White | + + + | Ethnic Group | Not or | + + + Author + + + | Author | [facility] | + + + | Organization | [facility] | + + + | Address | Unknown | + + + | Phone | Unavailable | + + + Support + + + + + | Name | Relationship | Address | Phone | + + + + + | Yancy Rodas | ECON | [address] | | | | | [place] | | | | | [address] | | + + + + + Care Team Providers + +------+ + | Care Aircraft Tool Maker Name | Role | Phone | + +------+ + | Rosangela Bro MD | PCP | | + +------+ + Encounter Details +--------+ + + + + | Date | Type | Department | Care Team | Description | +--------+ + + + + | 03/12/ | Documentati | NON-[facility] EP[facility] | Unknown . | | | 2016 | on | Department | | | +--------+ + + + [...]
--- OUTSIDE RECORDS SUMMARY | ~2019-01-31 | XMS | Encounter Summary ---
Demographics + + + | Address | [address] | | | [place] [address] | + + + | Home Phone | | + + + | Preferred Language | Unknown | + + + | Marital Status | | + + + | Hindu Affiliation | 1041 | + + + | Race | Unknown | + + + | Ethnic Group | Unknown | + + + Author + + + | Author | [facility] | | | and Markana | + + + | Organization | [facility] | | | and Markana | + + + | Address | Unknown | + + + | Phone | Unavailable | + + + Support + + + + + | Name | Relationship | Address | Phone | + + + + + | Yancy Rodas | ECON | [address] | | | | | [place], [place] | | | | | [address] | | + + + + + Care Team Providers + +------+ + | Care Hog Ringer Name | Role | Phone | + +------+ + PCP | Unavailable | + +------+ + Encounter Details +--------+ + + + + | Date | Type | Department | Care Team | Description | +--------+ + + + + | 11/08/ | Abstract | [place] [facility] | DATA MIGRATION [place] | | | 2011 | | Conversion Location | SR | | | | | [phone] | | | +--------+ + + + [...] + + documented as of this encounter Last Filed Vital Signs + + + + + | Vital Sign | Reading | Time Taken | Comments | + + + + + | Blood Pressure | 130/70 | 04/25/2011 12:00 AM | | | | | PST | | + + + + + | Pulse | - | - | | + + + + + | Temperature | - | - | | + + + + + | Respiratory Rate | - | - | | + + + + + | Oxygen Saturation | - | - | | + + + + + | Inhaled Oxygen | - | - | | | Concentration | | | | + + + + + | Weight | 105.2 kg (232 lb) | 04/25/2011 12:00 AM | | | | | PST | | + + + + + | Height | 193 cm (6' 4") | 03/23/2011 12:00 AM | | | | | PST | | + + + + + | Body Mass Index | 28.24 | 03/23/2011 12:00 AM | | | | | PST | | + + + + + documented in this encounter Plan of Treatment Not on filedocumented as of this encounter Procedures + +--------+ + + + | Procedure Name | Priori | Date/Time | Associated Diagnosis | Comments | | | ty | | | | + +--------+ + + + | ENDOSCOPY, COLON, | Routin | 12/01/2008 | | Results for this | | DIAGNOSTIC | e | 12:00 AM | | procedure are in the | | | | PDT | | results section. | + +--------+ + + + documented in this encounter Results ENDOSCOPY, COLON, DIAGNOSTIC (12/01/2008 12:00 AM PDT) + + | Specimen | + + | | + + + + + | Narrative | Performed At | + + + | | | + + + documented in this encounter Visit Diagnoses Not on filedocumented in this encounter
--- OUTSIDE RECORDS SUMMARY | ~2019-01-31 | XMS | Encounter Summary ---
Demographics + + + | Address | [address] | | | [place] [address] | + + + | Home Phone | | + + + | Preferred Language | Unknown | + + + | Marital Status | | + + + | Methodist Affiliation | 1041 | + + + | Race | Unknown | + + + | Ethnic Group | Unknown | + + + Author + + + | Author | [facility] | | | and Markana | + + + | Organization | [facility] | | | and Markana [...] | [place] | | | | | [address] | | + + + + + Care Team Providers + +------+ + | Care Manager Compensation Name | Role | Phone | + +------+ + | Manjit Roque MD | PCP | | + +------+ + Encounter Details +--------+ + + + + | Date | Type | Department | Care Team | Description | +--------+ + + + + | 09/23/ | Orders Only | [facility] | Provider, | | | 2018 | | SYSTEM GENERIC OP | [address] | | | | | [address] | [address] | | | | | [address] [place], [place] | [place] [address] | | | | | [address] | | | | | | [phone] | | | +--------+ + + + [...]
--- OUTSIDE RECORDS SUMMARY | ~2019-01-31 | XMS | Encounter Summary ---
Demographics + + + | Address | [address] | | | [place] [address] | + + + | Home Phone | | + + + | Preferred Language | Unknown | + + + | Marital Status | | + + + | Sikhism Affiliation | [id number] | + + + | Race | Unknown | + + + | Ethnic Group | Unknown | + + + Author + + + | Author | [facility] | | | and Markana | + + + | Organization | [facility] | | | and [...] [place] | | | | | [address] | | + + + + + Care Team Providers + +------+ + | Care Cinder Pit Crane Operator Name | Role | Phone | + +------+ + | Manjit Roque MD | PCP | | + +------+ + Reason for Referral Evaluate & Treat (Routine) +--------+ + + + + + | Status | Reason | Specialty | Diagnoses / | Referred By | Referred To | | | | | Procedures | Contact | Contact | +--------+ + + + + + | Closed | Specialty | Gastroenterol | Diagnoses | Harri, | Harri, | | | Services | ogy | Chest pain, | Faustino Granados MD | Faustino Granados MD | | | Required | | unspecified | [address], | | | | | Other | [place], [place] | [address] | | | | | symptoms | [address] [place], | | | | | involving | [place], [place] | [place] [address] | | | | | digestive | [address] | Phone: | | | | | [phone] Phone: | [phone] | | | | | 9) Personal | [phone] | Fax: | | | | | history of | Fax: | [phone] | | | | | colonic | [phone] | | | | | | polyps | | | | | | | Procedures | | | | | | | SC UPPER GI | | | | | | | ENDOSCOPY,DI | | | | | | | AGNOSIS SC | | | | | | | UPPER GI | | | | | | | ENDOSCOPY,BI | | | | | | | OPSY SC | | | | | | | COLONOSCOPY, | | | | | | | DIAGNOSTIC | | | | | | | SC | | | | | | | COLONOSCOPY, | | | | | | | BIOPSY SC | | | | | | | GERD TST W/ | | | | | | | MUCOS PH | | | | | | | ELECTROD SC | | | | | | | GASTRIC | | | | | | | MOTILITY | | | | | | | STUDY | | | +--------+ + + + + + Reason for Visit + + + | Reason | Comments | + + + | Gastroesophageal | | | Reflux | | + + + Encounter Details +--------+---------+ + + + | Date | Type | Department | Care Team | Description | +--------+---------+ + + + | 04/23/ | Office | [facility] | Faustino Price MD | Chest pain, | | 2012 | Visit | GASTROENTEROLOGY | [address], [address] | unspecified (Primary | | | | [address] | [address] [place], [place] | Dx); Other symptoms | | | | [address] [place], [place] | [address] | involving digestive | | | | [address] | | system; Personal | | | | [phone] | | history of colonic | | | | | | polyps | +--------+---------+ + + + Social History + +--------+ [...] + + + | Blood Pressure | 144/62 | 04/23/2012 2:13 PM | | | | | PST | | + + + + + | Pulse | 60 | 04/23/2012 2:13 PM | | | | | PST | [...] + + + + | Weight | 102.5 kg (226 lb) | 04/23/2012 2:13 PM | | | | | PST | | + + + + + | Height | 190.5 cm (6' 3") | 04/23/2012 2:13 PM | | | | | PST | | + + + + + | Body Mass Index | 28.25 | 04/23/2012 2:13 PM | | | | | PST | | + + + + + documented in this encounter Progress Notes Faustino Price MD - 04/23/2012 3:29 PM PST Subjective: Patient ID: Faustino Rodas is a 62 y.o. male. HPI Comments: 62-year-old male seen in consultation for Dr. sister to GI problems. Patient has intermittent episodes of chest pain and epigastric discomfort. He describes it as a mu scle tightness and mild discomfort. He may have it instilled for a week or 2 and then resol ve. An extensive cardiac workup in the past which was negative including stress testing ang iography. He has had 3 episodes of severe piercing chest pain occurring while it while acti ve or at night. During the severe piercing chest pain is able to handle his secretions. He does have a history of reflux and is 14 years status post Kalpana fundoplication. Been paul ing Prilosec daily. He complains of nausea but has had no vomiting. He takes liquid antac ids rarely which did not seem to help with his symptoms. His chest pain either type is not precipitated by activity and he takes no specific treatment for the same. He denies dysphas ia or don't aphasia supraesophageal manifestations of reflux. Patient also has had a change in bowel pattern. He can move his bowels anywhere from 2-6 t imes in the morning including solid stools with progressively smaller amount with occasional urgency. He denies nocturnal evacuation denies any abdominal cramping. He discontinued mi lk products specifically ice cream with no improvement of his symptoms he has not tried a pr obiotic but has been taking 3Q with no improvement. He had an upper endoscopy in 2000 level which was normal except for some gastroparesis and some minor abnormalities of the duodenum mucosa TTG was negative. Patient denies any weight loss denies any hematemesis or any will na rectal bleeding. He is status post cholecystectomy there is no family history of colon c ancer but there is a Personal history of colonic polyps. His last colonoscopy was greater than 5 years ago. In reviewing his medications patient is on Prilosec and fish oil capsules . Reports other studies have included an MR of the chest profile and CBC have been within n ormal limits has a history of atrial fibrillation and colonic polyps. He's recently been di agnosed with vitamin D deficiency. Gastroesophageal Reflux Associated symptoms include diarrhea and nausea. His past medical history is significant fo r GERD. Filed Vitals: 04/23/12 1413 BP: 144/62 Pulse: 60 PainSc: 0 - No pain No Known Allergies Past Medical History Diagnosis Date Diarrhea 03/23/11 Rash 03/23/11 GERD (gastroesophageal reflux disease) Hyperlipidemia Cardiac arrhythmia Myositis Vitamin d deficiency Bursitis Plantar fasciitis Other activity 2005 Cardiac issues, radio frequency ablation of cardiac rhythm Other activity Upper abdominal sympoms including bloating and sense of "filling of esophagus", Other activity Acalculus cholecystitis presumed from ejection fraction of only 22% on CCK-Hida test Colon polyps 2002 Atrial fibrillation very rare and decreasing rather than increasing Chest pain Hypertension Other abnormal blood chemistry BPH without urinary obstruction Low back syndrome Bruit Rotator cuff disorder Plantar fasciitis Skin cancer followed by Dr. Meng Past Surgical History Procedure Date Thoracotomy for spontaneous pneumothorax Gastric fundoplication Cholecystectomy, laparoscopic 05/18/05 with intraoperative cholangiogram - 05/18/05 Foot neuroma surgery left Lasik 2006 repeat bilateral Ablation 1999 AV ablation Shoulder arthroscopy 2011 right shoulder Colonoscopy 12/2008 [address]lication 1997 Dr. Moore Family History Problem Relation Age of Onset Dementia Mother Other (See Comment) Mother dementia; colon polyps Prostate cancer Father Heart disease Father Cancer Father prostate Prostate cancer Other Coronary artery disease Other Heart disease Brother Cancer Brother prostate History Social History Marital Status: Spouse Name: N/A Number of Children: 3 Years of Education: N/A Occupational History Retired [employer] Social History Main Topics Smoking status: Current Some Day Smoker Types: Cigars Smokeless tobacco: Never Used Alcohol Use: Yes socially Drug Use: No Sexually Active: None Other Topics Concern None Social History Narrative None Review of Systems Constitutional: Negative. HENT: Negative. Eyes: Negative. Respiratory: Negative. Cardiovascular: Negative. Gastrointestinal: Positive for nausea, abdominal pain and diarrhea. Genitourinary: Negative. Musculoskeletal: Negative. Neurological: Negative. Hematological: Negative. Psychiatric/Behavioral: Negative. Objective: Physical Exam Constitutional: He is oriented to person, place, and time. He appears well-developed and we ll-nourished. No distress. HENT: Head: Normocephalic and atraumatic. Right Ear: External ear normal. Left Ear: External ear normal. Nose: Nose normal. Mouth/Throat: Oropharynx is clear and moist. No oropharyngeal exudate. Eyes: Conjunctivae and EOM are normal. Pupils are equal, round, and reactive to light. Righ t eye exhibits no discharge. Left eye exhibits no discharge. No scleral icterus. Neck: Normal range of motion. Neck supple. No JVD present. No tracheal deviation present. Cardiovascular: Normal rate, regular rhythm, normal heart sounds and intact distal pulses. Exam reveals no gallop and no friction rub. No murmur heard. Pulmonary/Chest: Effort normal and breath sounds normal. No stridor. No respiratory distres s. He has no wheezes. He has no rales. He exhibits no tenderness. Abdominal: Soft. Bowel sounds are normal. He exhibits no distension and no mass. There is n o tenderness. There is no rebound and no guarding. Musculoskeletal: Normal range of motion. He exhibits no edema and no tenderness. Lymphadenopathy: He has no cervical adenopathy. Neurological: He is alert and oriented to person, place, and time. No cranial nerve deficit . He exhibits normal muscle tone. Coordination normal. Skin: Skin is warm and dry. No rash noted. He is not diaphoretic. No erythema. No pallor. Psychiatric: He has a normal mood and affect. His behavior is normal. Judgment and thought content normal. 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 pylori esophageal melena motor abnormality #2 change in bowel pattern possibly idiopathic from med ication changes versus other cause History of colonic polyps appropriate candidate for followup Plan: At this time the patient is a candidate for upper endoscopy colonoscopy. In addition we'll have him discontinue his Prilosec and vitamin seen in the shoulder see if that will help no rmalize his bowel pattern. Will also do esophageal manometrics in problem study off of prot on pump inhibitor to document presence or absence of acid reflux. Patient discontinues Prilosec to see if that makes a difference in his bowel function and i f it does not then discontinue his fish oil capsules. documented in this enc ounter Plan of Treatment + + +--------+ + + | Name | Type | Priori | Associated Diagnoses | Order Schedule | | | | ty | | | + + +--------+ + + | Ambulatory referral | Outpatient | Routin | Chest pain, | Expected: | | to Gastroenterology | Referral | e | unspecified Other | 05/01/2012, Expires: | | | | | symptoms involving | 04/24/2013 | | | | | digestive system | | | | | | Personal history of | | | | | | colonic polyps | | + + +--------+ + + documented as of this encounter Visit Diagnoses + + | Diagnosis | + + | Chest pain, unspecified - Primary | + + | Other symptoms involving digestive system(787.99) Other symptoms involving digestive | | system | + + | Personal history of colonic polyps | + + documented in this encounter
--- OUTSIDE RECORDS SUMMARY | ~2019-01-31 | XMS | Encounter Summary ---
Demographics + + + | Address | [address] | | | [place] [address] | + + + | Home Phone | | + + + | Preferred Language | Unknown | + + + | Marital Status | | + + + | Synagogue Affiliation | 1041 | + + + | Race | Unknown | + + + | Ethnic Group | Unknown | + + + Author + + + | Author | [facility] | | | and Markana | + + + | Organization | [facility] | | | and Markana [...] | [place] | | | | | [address] | | + + + + + Care Team Providers + +------+ + | Care Chlorine Cell Tender Name | Role | Phone | + +------+ + | Manjit Roque MD | PCP | | + +------+ + Encounter Details +--------+ + + + + | Date | Type | Department | Care Team | Description | +--------+ + + + + | 04/11/ | Abstract | [facility] | Faustino Price MD | | | 2012 | | GASTROENTEROLOGY | [address], [address] | | | | | [address] | [address] [place], [place] | | | | | [address] [place], [place] | [address] | | | | | [address] | | | | | | [phone] | | | +--------+ + + + [...]
--- OUTSIDE RECORDS SUMMARY | ~2019-01-31 | XMS | Encounter Summary ---
Demographics + + + | Address | [address] | | | [place] [address] | + + + | Home Phone | | + + + | Preferred Language | Unknown | + + + | Marital Status | | + + + | Scientology Affiliation | 1041 | + + + | Race | Unknown | + + + | Ethnic Group | Unknown | + + + Author + + + | Author | [facility] | | | and Markana | + + + | Organization | [facility] | | | and [...] [place] | | | | | [address] | | + + + + + Care Team Providers + +------+ + | Care Crayon Molding Machine Operator Name | Role | Phone | [...] + + | 02/06/ | Telephone | [facility] | Faustino Price MD | Gastroesophageal | | 2011 | | GASTROENTEROLOGY | [address], [address] | Reflux | | | | [address] | [address] [place], [place] | | | | | [address] [place], [place] | [address] | | | | | [address] | | | | | | [phone] | | | +--------+ + + + [...]
--- OUTSIDE RECORDS SUMMARY | ~2019-01-31 | XMS | Encounter Summary ---
Demographics + + + | Address | [address] | | | [place] [address] | + + + | Home Phone | | + + + | Preferred Language | Unknown | + + + | Marital Status | | + + + | Shinto Affiliation | [id number] | + + + | Race | Unknown | + + + | Ethnic Group | Unknown | + + + Author + + + | Author | [facility] | | | and [place] | + + + | Organization | [facility] | | | and [place] | + + + | Address | Unknown | + + + | Phone | Unavailable | + + + Support + + + + + | Name | Relationship | Address | Phone | + + + + + | Yancy Hurt | ECON | [address] | | | | | [place] | | | | | [address] | | + + + + + Care Team Providers + +------+ + | Care General Car Supervisor Yard Name | Role | Phone | + +------+ + | Manjit Roque MD | PCP | | + +------+ + Encounter Details +--------+ + + + + | Date | Type | Department | Care Team | Description | +--------+ + + + + | 12/25/ | Hospital | [facility] | Ema Martin MD | Spontaneous | | 2017 - | Encounter | [facility] | [address] | pneumothorax | | | | CARE FLOOR [address] | [place] [address] | | | 12/29/ | | [address] | [phone] | | | 2017 | | [place], [place] | | | | | | [address] | | | | | | [phone] | | | +--------+ + + + [...] + + + | Blood Pressure | 132/60 | 12/29/2016 8:01 AM | | | | | PDT | | + + + + + | Pulse | 81 | 12/29/2016 8:01 AM | | | | | PDT | | + + + + + | Temperature | 36.5 C (97.7 F) | 12/29/2016 8:01 AM | | | | | PDT | | + + + + + | Respiratory Rate | 18 | 12/29/2016 8:01 AM | | | | | PDT | | + + + + + | Oxygen Saturation | - | - | | + + + + + | Inhaled Oxygen | - | - | | | Concentration | | | | + + + + + | Weight | 92.1 kg (203 lb 0.6 | 12/29/2016 8:01 AM | | | | oz) | PDT | | + + + + + | Height | 190.5 cm (6' 3") | 12/29/2016 8:01 AM | | | | | PDT | | + + + + + | Body Mass Index | 25.38 | 12/29/2016 8:01 AM | | | | | PDT | | + + + + + documented in this encounter Discharge Summaries Jackeline Morris MD - 12/29/2016 9:45 AM PDTFormatting of this note might be different f rom the original. Discharge Summaries by Jackeline Morris MD at 12/29/16944 Author: Jackeline Morris MD Service: Hospitalist Author Type: Physician Filed: 12/29/16946 Date of Service: 12/29/16944 Status: Signed Security Attendant: Jackeline Morris MD (Physician) [facility] Service: Hospitalist Physician Discharge Summary Pt: Janette Hurt AGE/SEX: 66 y.o. male ROOM: [id number]/[id number] PCP: Manjit Roque : 1950 Admit date: 12/25/2016 Discharge date and time: 12/29/2016 9:45 AM Admitting Physician: Ema Martin MD Discharge Physician: Jackeline Morris MD Consults: Dr. Tucker Primary Discharge Diagnoses: Principal Problem: Spontaneous pneumothorax Active Problems: Benign essential hypertension Resolved Problems: * No resolved hospital problems. * Secondary Discharge Diagnoses: Nill Discharged Condition: stable Significant Diagnostic Studies: Xr Chest 2 View Result Date: 12/29/2016 1. Status post removal of right thoracostomy tube. No pneumothorax. 2. Small bilateral pl eural effusion and/or pleural thickening. 3. Right basilar subsegmental atelectasis or scar ring, improved as compared to radiographs dated 12/28/2016. Xr Chest 2 View Result Date: 12/28/2016 1. No pneumothorax. Xr Chest 2 View Result Date: 12/26/2016 1. Moderate loculated right pneumothorax with atelectasis and/or consolidation of the unde rlying lung, increased as compared to radiographs dated 12/25/2016. Ct Chest Without Contrast Result Date: 12/26/2016 1. Moderate to large right pneumothorax, most prominent at the base. There appears to be m ild shift of the mediastinum to the left. 2. Multiple hypodensities identified within the l iver, spleen and kidneys, incompletely characterized. Although these could potentially repre sent cysts, this is difficult to confirm on the current unenhanced study. Correlation with C T or MRI of the abdomen with and without contrast suggested for definitive assessment. Criti ward findings discussed with Dr. Morris at 7:48 AM on 12/26/2016. X-ray Chest 1 View Result Date: 12/27/2016 No pneumothorax seen. X-ray Chest 1 View Result Date: 12/27/2016 1. Properly positioned right basilar thoracostomy tube 2. Lower lung volumes with increasin g atelectasis, at least. No focal infiltrate or progression pleural air Electronically kia d by Yovany Matias MD on 12/27/2016 6:38 AM X-ray Chest 1 View Result Date: 12/26/2016 1. Chest tube in expected position. Small right residual pneumothorax. Electronically kia d by Neymar Moss MD on 12/26/2016 11:30 AM HPI and Hospital Course: 66 years old gentleman with past medical history of gastroesophageal reflux disease, histor y of spontaneous pneumothorax secondary to asymptomatic bleb 50 years ago status post resect ion on the right lung, chronic COPD with history of 94-ivok-stzw smoking, quit 1-1/2 year ag o, history of prostate cancer status post surgery he is in remission, history of atrial flut ter status post ablation 12 years ago, came to the hospital with right-sided pneumothorax as he was noticing right-sided pleuritic chest pain. Status post right intercostal chest tube His pneumothorax has resolved. He is feeling comfortable walking around. He is not in any k ind of distress. He Had no CP, SOB, N/V, Diarrhea, Abdominal pain or WEEKS. No constipation or change in bowel habits. No orthopnea or PND. Appetite is good without abdominal bloating. No cough or fever. No dizziness, lightheadedness or any symptoms suggestive of stroke. Follow Up Labs/Imaging and Monitoring: CT Surgery Discharge Vitals: Vitals: 12/28/16 1930 12/28/16 2307 12/29/16 0317 12/29/16 0801 BP: 136/58 115/66 135/62 132/60 BP Location: Right upper arm Left upper arm Left upper arm Right upper arm Pulse: 74 78 72 81 Resp: 18 14 17 18 Temp: 98 F (36.7 C) 98 F (36.7 C) 98.1 F (36.7 C) 97.7 F (36.5 C) TempSrc: Oral Oral Oral Oral SpO2: 94% 94% 91% 94% Weight: 92.1 kg (203 lb 0.7 oz) Height: Discharge Exam: Constitutional: Alert and oriented to person, place, and time. Cardiovascular: Normal rate, regular rhythm, normal heart sounds with S1 and S2 and intact distal pulses. Exam reveals no gallop and no friction rub. No murmur heard. Pulmonary/Chest: Decreased air entry bilateral. Efforst are normal Abdominal: Soft. Bowel sounds are normal. exhibits no distension and no mass. There is no t enderness. There is no rebound and no guarding. Musculoskeletal: Normal range of motion.exhibits no tenderness. exhibits no edema. Neurological: Alert and oriented to person, place, and time. Has normal reflexes. display s normal reflexes. No cranial nerve deficit. Exhibits normal muscle tone. Coordination norm al. Skin: Skin is warm and dry. No rash noted. No erythema. No pallor. Psychiatric: Has a normal mood and affect. Behavior is normal. Judgment normal. Not suicida l LABS: Recent Labs Lab 12/27/1641712/26/16408 WBC 10.47 8.23 HGB 14.4 14.4 HCT 42.3 41.7 PLT 304 282 NEUTOPHILPCT 78.39 66.44 MONOPCT 7.80 9.91 Recent Labs Lab 12/26/16408 NA 140 K 4.0 CL 105 CO2 27 BUN 15 CREATININE 1.1 Recent Labs Lab 12/26/16408 MG 2.1 Results No results found for the last 72 hours. Disposition: Home Patient Instructions: Medication List CONTINUE taking these medications aspirin 81 MG tablet Refills: 0 carboxymethylcellulose 0.5 % Soln Refills: 0 Commonly known as: REFRESH PLUS cholecalciferol 1000 units tablet Refills: 0 Commonly known as: VITAMIN D-3 cyclobenzaprine 5 MG tablet Refills: 0 Commonly known as: FLEXERIL diltiazem 60 MG tablet Refills: 0 Commonly known as: CARDIZEM imipramine 25 MG tablet Refills: 0 Commonly known as: TOFRANIL lisinopril 20 MG tablet Refills: 0 Commonly known as: ZESTRIL melatonin 3 MG Tabs Refills: 0 multivitamin with minerals tablet Refills: 0 oxyCODONE-acetaminophen 5-325 MG per tablet Refills: 0 Commonly known as: PERCOCET simvastatin 40 MG tablet Refills: 0 Commonly known as: ZOCOR You might also be taking other medications not listed above. If you have questions about an y of your other medications, talk to the person who prescribed them or your Primary Care Pro vider. Activity: activity as tolerated Diet: regular diet Wound Care: as directed Discharge medications reconciliation was completed by myself. I carefully reviewed all the medications with the patient. All the dosages was confirmed with the patient to the best o f patient's knowledge. I resumed most of his home medication after talking to the patient. I informed the patien t that, If you are not taking any of those medicines or if you think that dose is not righ t please talk to the primary care doctor for adjustment of doses and medications. Please paul e all the medication to your PCP and show him what medication you are taking so that he can adjust your medications if needed. Follow-Up: Roxanne Hamilton MD [address] [facility] [id number] Go on 01/10/2017 Post-op follow-up, For wound re-check, For suture removal; please get a chest x-ray before coming to your appointment - one has been ordered for you. Manjit Roque MD [address] [facility] [address] [place] [id number] In 1 week Discharge took more than 35 minutes, to include final examination, discussion of admission, and preparation of prescriptions, instructions for ongoing care, follow up and dictation of summary. Signed: JACKELINE MORRIS MD 12/29/2016 9:45 AM Dictation software, [employer], used which may contain error for similar sounding words even af ter review. Personal communication requested for any clarification. Portions of this chart may have been copied from previous notes for continuity of care purp ose documented in this encounter Medications at Time of Discharge [...] + + + +---------+ + + | [place]-3 Fatty | CAPS one by mouth 3 [...] + + documented as of this encounter Progress Notes Conversion Transaction, Provider Unknown - 12/29/2016 11:26 AM PDTFormatting of this note m ight be different from the original. Nurse Progress Note by Mulu Mera RN at 12/29/16 112 Author: Mulu Mera RN Service: (none) Author Type: Registered Nurse Filed: 12/29/16 1216 Date of Service: 12/29/161125 Status: Signed Security Attendant: Mulu Mera RN (Registered Nurse) No c/o sob, ambulating independently in the room without difficulty. Discharge teaching don e at bedside with pt and family. No additional questions, IV removed and pressure dressing a pplied per protocol. Pt left ambulatory via private car. Mulu Mera 12/29/16 12:16 PM Anel Bright ARNP - 12/28/2016 1:28 PM PDTFormatting of this note might be differ ent from the original. Progress Notes by KEKE Max at 12/28/16 4815 Author: KEKE Max Service: Cardiac, Thoracic, and Vascular Surgery [place] Type: Advanced Registered Nurse Practitioner Filed: 12/28/16 5779 Date of Service: 12/28/16 1328 Status: Attested Security Attendant: KEKE Max (Advanced Registered Nurse Practitioner) Cosigner: Roxanne Hamilton MD at 12/29/16 0704 Attestation signed by Roxanne Hamilton MD at 12/29/16 0704 I have examined Janette Hurt, reviewed the notes, assessments, and/or procedures performed by KEKE Menchaca, I concur with her documentation of Janette Hurt. [facility] Cardiothoracic Surgery Progress Note Date/Time:12/28/2016 1:29 PM Provider: KEKE Max Hospital Day: LOS: 3 days Surgery/Procedure: R chest tube thoracostomy, 12/26/2016 Room: [address] [place] [address] PROBLEM LIST Principal Problem: Spontaneous pneumothorax Active Problems: Benign essential hypertension SUBJECTIVE: Patient Summary Overnight: - HD stable, NSR - On RA, no SOB - Up to chair, pain fairly well-controlled on current regimen - UOP adequate - CT clamped yesterday, CXR this AM stable OBJECTIVE: Current weight: Weight: 95.1 kg (209 lb 10.5 oz) Admission weight: Weight: 92.2 kg (203 lb 4.2 oz) Vital Signs: BP 129/65 (BP Location: Left upper arm) | Pulse 72 | Temp 98 F (36.7 C) (Oral) | Res p 18 | Ht 1.905 m (6' 3") | Wt 95.1 kg (209 lb 10.5 oz) | SpO2 93% | BMI 26.21 kg/m 24h: Temp: [97.7 F (36.5 C)-98.1 F (36.7 C)] 98 F (36.7 C) (12/28 1100) BP: (129-142)/(65-80) 129/65 (12/28 1100) Heart Rate: [72-76] 72 (12/28 1100) Resp: [18-22] 18 (12/28 1100) SpO2: [90 %-95 %] 93 % (12/28 1100) Weight: [95.1 kg (209 lb 10.5 oz)] 95.1 kg (209 lb 10.5 oz) (12/28 457) Intake/Output Summary (Last 24 hours) at 12/28/16 1329 Last data filed at 12/28/16 1103 Gross per 24 hour Intake 1300 ml Output 0 ml Net 1300 ml 12/27 0700 - 12/28 0659 In: 840 [P.O.:840] Out: - Physical Exam: GENERAL: A&O x 3, in no acute distress. NEURO: PERRLA, EOMI; no facial asymmetry, speech normal and non pressured. Normal ROM. HEENT: Sclerae clear, nonicteric; Oral Mucosa moist and pink. NECK: No JVD noted, carotid upstrokes brisk without bruits. No thyromegaly. HEART: RRR w/normal S1/S2. No murmur, rub, heave, or gallop noted. LUNGS: Lungs are clear to auscultation without wheezing, crackles, or rhonchi. Dim R base ABDOMEN: Soft, nondistended, nontender. BS+ EXTREMITIES: No edema; Bilateral radial, dorsalis pedis, and posterior tibialis pulses mode rate. No clubbing or cyanosis noted. SKIN: R chest tube insertion site clean, dry, and intact. No erythema, edema/inflammation, discharge, or warmth noted around the incision site. DATA: Scheduled Medications aspirin 81 mg Oral Daily atorvastatin 5 mg Oral Nightly cholecalciferol 2,000 Units Oral Daily diltiazem 60 mg Oral TID imipramine 25 mg Oral Nightly lidocaine-EPINEPHrine 1 mL Infiltration Once lisinopril 20 mg Oral BID melatonin 5 mg Oral Nightly multivitamin with minerals 1 tablet Oral Daily senna-docusate 1 tablet Oral BID Continuous Infusions PRN Medications acetaminophen OR acetaminophen, bisacodyl, cyclobenzaprine, magnesium hydroxide, ondans etron OR ondansetron, oxyCODONE OR oxyCODONE, polyethylene glycol, sodium phosphate LABS: Recent Labs Lab 12/27/16 0418 12/26/16 0409 WBC 10.47 8.23 RBC 4.67 4.65 HGB 14.4 14.4 HCT 42.3 41.7 MCV 90.4 89.6 MCH 30.8 31.0 MCHC 34.0 34.7 RDW 42.0 42.9 PLT 304 282 MPV 7.6 7.5 DIFFTYPE AUTOMATED AUTOMATED Recent Labs Lab 12/26/16 0409 NA 140 K 4.0 CL 105 CO2 27 ANIONGAP 12 GLUF 97 BUN 15 CREATININE 1.1 BCR 14 CA 8.9 EGFR >60 MG 2.1 PHOS 4.2 ASSESSMENT & PLAN: CXR this AM stable w/chest tube clamped - remove today Encourage IS q15min while awake, pulmonary toilet Increase ambulation as tolerated, PT/OT Pt stable for discharge from CT Surgery standpoint. We will have him follow up with us i n office in 2 weeks w/CXR. 2-view in AM if pt not discharging today. Disposition: Per primary Service (Hospitalist) Thank you for allowing us to participate in the care of this patient. Please do not hesitat e to contact us if we may be of any further assistance. The patient has been seen and the plan has been discussed with the attending provider. KEKE Max 12/28/2016 Cardiothoracic Surgery Yue, As if MD Balta - 12/28/2016 1:17 PM PDTFormatting of this note might be different from the or iginal. Progress Notes by Jackeline Morris MD at 12/28/16 1317 Author: Jackeline Morris MD Service: Hospitalist Author Type: Physician Filed: 12/28/16 1323 Date of Service: 12/28/16 1317 Status: Signed Security Attendant: Jackeline Morris MD (Physician) [facility] Service: Hospitalist Progress Note Pt: Janette Hurt AGE/SEX: 66 y.o. male ROOM: Count includes the [facility]- : 1950 PCP: Manjit Roque ADMIT DATE: 12/25/2016 TODAY'S DATE: 12/28/2016 Hospital Day/Hospital Course: LOS: 3 days 66 years old gentleman with past medical history of gastroesophageal reflux disease, histor y of spontaneous pneumothorax secondary to asymptomatic bleb 50 years ago status post resect ion on the right lung, chronic COPD with history of 93-rmnn-ethf smoking, quit 1-1/2 year ag o, history of prostate cancer status post surgery he is in remission, history of atrial flut ter status post ablation 12 years ago, came to the hospital with right-sided pneumothorax as he was noticing right-sided pleuritic chest pain. Status post right intercostal chest tube SUBJECTIVE: Patient seen and examine. He is having slight back pain on the right side. He is not short of breath. . He is walking around comfortably. Chest tube is out today. No chest pain, SOB, WEEKS. No cough on recumbency. Had no orthopnea or PND. No Abdominal pain, N/V or fever. Still feeling tired and fatigued. No dizziness or lightheadedness. Scheduled Medications: aspirin 81 mg Oral Daily atorvastatin 5 mg Oral Nightly cholecalciferol 2,000 Units Oral Daily diltiazem 60 mg Oral TID imipramine 25 mg Oral Nightly lidocaine-EPINEPHrine 1 mL Infiltration Once lisinopril 20 mg Oral BID melatonin 5 mg Oral Nightly multivitamin with minerals 1 tablet Oral Daily senna-docusate 1 tablet Oral BID Continuous Infusions PRN Medications acetaminophen OR acetaminophen, bisacodyl, cyclobenzaprine, HYDROmorphone, magnesium hy droxide, ondansetron OR ondansetron, oxyCODONE OR oxyCODONE, polyethylene glycol, so dium phosphate Allergy: Allergies Allergen Reactions Nsaids GI Distress Pt experiences GI distress with NSAIDS, only take his ASA 81mg daily and tolerates that f ine. OBJECTIVE: Vitals: Patient Vitals for the past 24 hrs: BP Temp Temp src Pulse Resp SpO2 Weight 12/28/16 1101 129/65 98 F (36.7 C) Oral 72 18 93 % - 12/28/16 0756 133/69 97.9 F (36.6 C) Oral 76 18 95 % - 12/28/16 0458 - - - - - - 95.1 kg (209 lb 10.5 oz) 12/28/16 0325 136/75 98.1 F (36.7 C) Oral 76 18 92 % - 12/27/16 2324 137/69 98.1 F (36.7 C) Oral 73 21 90 % - 12/27/16 1946 - 98.1 F (36.7 C) - - 18 - - 12/27/16 1934 140/80 - - 72 - 90 % - 12/27/16 1602 142/67 97.7 F (36.5 C) Oral 72 22 93 % - I&O Detailed Table: Intake/Output Summary (Last 24 hours) at 12/28/16 1317 Last data filed at 12/28/16 1103 Gross per 24 hour Intake 1300 ml Output 0 ml Net 1300 ml Patient Vitals for the past 96 hrs: Weight 12/28/16 0458 95.1 kg (209 lb 10.5 oz) 12/27/16 0621 92.9 kg (204 lb 12.9 oz) 12/25/16 1934 92.2 kg (203 lb 4.2 oz) Hemodynamics Last 24hrs: Physical Examination: Constitutional: He is lying flat comfortably. He is talking to me appropriately. Is not in any kind of distress. HEENT: Neck supple, no JVD, non icteric sclera. Cardiovascular: Normal rate, regular rhythm, normal heart sounds with S1 and S2, and intact distal pulses. Exam reveals no gallop and no friction rub. No murmur heard. Pulmonary/Chest: Status post right-sided chest tube. Decreased air entry on the right side Abdominal: Soft. Bowel sounds are normal. exhibits no distension and no mass. There is no t enderness. There is no rebound and no guarding. Extremeties/Musculoskeletal: Normal range of motion.exhibits no tenderness. exhibits no ed den. Neurological: Alert and oriented to person, place, and time. Has normal reflexes. No cran ial nerve deficit. Exhibits normal muscle tone. Coordination normal. Skin: Skin is warm and dry. No rash noted. No erythema. No pallor. Psychiatric: Has a normal mood and affect. Behavior is normal. Judgment normal. Not suicida l LABS: Recent Labs Lab 12/27/16 0418 12/26/16 0409 WBC 10.47 8.23 HGB 14.4 14.4 HCT 42.3 41.7 PLT 304 282 NEUTOPHILPCT 78.39 66.44 MONOPCT 7.80 9.91 Recent Labs Lab 12/26/16 0409 NA 140 K 4.0 CL 105 CO2 27 BUN 15 CREATININE 1.1 Phosphorus: Lab Results Component Value Date PHOS 4.2 12/26/2016 Recent Labs Lab 12/26/16 0409 MG 2.1 Results No results found for the last 72 hours. PROBLEM LIST Principal Problem: Spontaneous pneumothorax Active Problems: Benign essential hypertension ASSESSMENT & PLAN 66 years old gentleman with past medical history of gastroesophageal reflux disease, histor y of spontaneous pneumothorax secondary to asymptomatic bleb 50 years ago status post resect ion on the right lung, chronic COPD with history of 08-urql-dais smoking, quit 1-1/2 year ag o, history of prostate cancer status post surgery he is in remission, history of atrial flut ter status post ablation 12 years ago, came to the hospital with right-sided pneumothorax as he was noticing right-sided pleuritic chest pain. Principal Problem: Spontaneous pneumothorax Status post right intercostal chest. Chest tube is out today. He is having slight pain in the right side of the chest. Will get a chest x-ray. Would like to monitor him 1 more night in the hospital. I discussed with Dr. Juarez. He was admitted for spontaneous pneumothorax with element of tension pneumothorax with midline shift. No more chest pain. Active Problems: Benign essential hypertension Blood pressure is better controlled with diltiazem Patient diagnosed with: , and I agree with the following nutritional recommendations: JACKELINE MORRIS MD, FACP 12/28/2016 1:17 PM Dictation software, [employer], used which may contain error for similar sounding words even af ter review. Personal communication requested for any clarification. Portions of this chart may have been copied from previous notes for continuity of care purp ose onversion Transac tion, Provider Unknown - 12/28/2016 5:36 AM PDTFormatting of this note might be different f rom the original. Nurse Progress Note by Shavon Hernandez RN at 12/28/16535 Author: Shavon Hernandez RN Service: (none) Author Type: Registered Nurse Filed: 12/28/16 0538 Date of Service: 12/28/16535 Status: Signed Security Attendant: Shavon Hernandez RN (Registered Nurse) Patient tolerated CT clamped overnight. Denies any sob. He will go down for Xray at 0645 as scheduled. nel Erickson, RADIOLOGY EQUIPMENT SERVICER - 12/27/2016 2:44 PM PDTFormatting of this note might be differ ent from the original. Progress Notes by KEKE Max at 12/27/161443 Author: KEKE Max Service: Cardiac, Thoracic, and Vascular Surgery [place] Type: Advanced Registered Nurse Practitioner Filed: 12/27/161446 Date of Service: 12/27/161443 Status: Attested Security Attendant: KEKE Max (Advanced Registered Nurse Practitioner) Cosigner: Roxanne Hamilton MD at 12/27/161850 Attestation signed by Roxanne Hamilton MD at 12/27/161850 I have examined Janette Hurt, reviewed the notes, assessments, and/or procedures performed by KEKE Menchaca, I concur with her documentation of Janette Hurt. Saw pt on rounds this AM CT placed to water seal earlier today, then clamped after rounds - CXR at noon today showed no PTX Will continue w/CT clamped and get 2-view in AM - if stable, likely removal jim We will continue to follow Thank you for allowing us to participate in the care of this patient. Please do not hesitat e to contact us if we may be of any further assistance. KEKE Max 12/27/16 2:46 PM Cardiothoracic Surgery onversio n Transaction, Provider Unknown - 12/27/2016 1:07 PM PDTFormatting of this note might be di fferent from the original. Case Management by Jackie Riggs RN at 12/27/16 076 Author: Jackie Riggs RN Service: (none) Author Type: Registered Nurse Filed: 12/27/161306 Date of Service: 12/27/161306 Status: Signed Security Attendant: Jackie Riggs RN (Registered Nurse) CM attended AM rounds: patient's chest tube will likely be pulled soon & plan for d/c ; home w/, no needs. Jackie Riggs Jackeline Turner MD - 12/27/2016 12:25 PM PDT Progress Notes by Jackeline Morris MD at 12/27/16 1225 Author: Jackeline Morris MD Service: Hospitalist Author Type: Physician Filed: 12/27/16 1231 Date of Service: 12/27/16 1225 Status: Signed Security Attendant: Jackeline Morris MD (Physician) [facility] Service: Hospitalist Progress Note Pt: Janette Hurt AGE/SEX: 66 y.o. male ROOM: [address] [place] [address] : 1950 PCP: Manjit Roque ADMIT DATE: 12/25/2016 TODAY'S DATE: 12/27/2016 Hospital Day/Hospital Course: LOS: 2 days 66 years old gentleman with past medical history of gastroesophageal reflux disease, histor y of spontaneous pneumothorax secondary to asymptomatic bleb 50 years ago status post resect ion on the right lung, chronic COPD with history of 10-wjmc-qgsu smoking, quit 1-1/2 year ag o, history of prostate cancer status post surgery he is in remission, history of atrial flut ter status post ablation 12 years ago, came to the hospital with right-sided pneumothorax as he was noticing right-sided pleuritic chest pain. Status post right intercostal chest tube SUBJECTIVE: Patient seen and examine. He is status post right intercostal chest tube. He tolerated the procedure well. He is not having any kind of pain.. He is walking around comfortably. No alma st pain, SOB, WEEKS. No cough on recumbency. Had no orthopnea or PND. No Abdominal pain, N/V or fever. Still feeling tired and fatigued. No dizziness or lightheadedness. Scheduled Medications: aspirin 81 mg Oral Daily atorvastatin 5 mg Oral Nightly cholecalciferol 2,000 Units Oral Daily diltiazem 60 mg Oral TID docusate sodium 100 mg Oral Daily imipramine 25 mg Oral Nightly lidocaine-EPINEPHrine 1 mL Infiltration Once lisinopril 20 mg Oral BID melatonin 5 mg Oral Nightly multivitamin with minerals 1 tablet Oral Daily Continuous Infusions PRN Medications acetaminophen OR acetaminophen, cyclobenzaprine, HYDROmorphone, ondansetron OR onda nsetron, oxyCODONE OR oxyCODONE, polyethylene glycol Allergy: Allergies Allergen Reactions Nsaids GI Distress Pt experiences GI distress with NSAIDS, only take his ASA 81mg daily and tolerates that f ine. OBJECTIVE: Vitals: Patient Vitals for the past 24 hrs: BP Temp Temp src Pulse Resp SpO2 Weight 12/27/16 1201 128/63 97.6 F (36.4 C) Oral 79 20 93 % - 12/27/16 0815 127/61 97.6 F (36.4 C) Oral 76 20 93 % - 12/27/16 0621 - - - - - - 92.9 kg (204 lb 12.9 oz) 12/27/16 0352 132/75 97.6 F (36.4 C) Oral 75 18 90 % - 12/26/16 2308 120/64 97.6 F (36.4 C) Oral 71 18 92 % - 12/26/16 1938 - 97.9 F (36.6 C) Oral 77 18 90 % - 12/26/16 1659 138/70 97.9 F (36.6 C) Oral 68 20 95 % - I&O Detailed Table: Intake/Output Summary (Last 24 hours) at 12/27/16 1225 Last data filed at 12/27/16 0820 Gross per 24 hour Intake 890 ml Output 20 ml Net 870 ml Patient Vitals for the past 96 hrs: Weight 12/27/16 0621 92.9 kg (204 lb 12.9 oz) 12/25/16 1934 92.2 kg (203 lb 4.2 oz) Hemodynamics Last 24hrs: Physical Examination: Constitutional: Alert and oriented to person, place, and time. He is walking in the hallway . HEENT: Neck supple, no JVD, non icteric sclera. Cardiovascular: Normal rate, regular rhythm, normal heart sounds with S1 and S2, and intact distal pulses. Exam reveals no gallop and no friction rub. No murmur heard. Pulmonary/Chest: Status post right-sided chest tube. Decreased air entry on the right side Abdominal: Soft. Bowel sounds are normal. exhibits no distension and no mass. There is no t enderness. There is no rebound and no guarding. Extremeties/Musculoskeletal: Normal range of motion.exhibits no tenderness. exhibits no ed den. Neurological: Alert and oriented to person, place, and time. Has normal reflexes. No cran ial nerve deficit. Exhibits normal muscle tone. Coordination normal. Skin: Skin is warm and dry. No rash noted. No erythema. No pallor. Psychiatric: Has a normal mood and affect. Behavior is normal. Judgment normal. Not suicida l LABS: Recent Labs Lab 12/27/1641712/26/16408 WBC 10.47 8.23 HGB 14.4 14.4 HCT 42.3 41.7 PLT 304 282 NEUTOPHILPCT 78.39 66.44 MONOPCT 7.80 9.91 Recent Labs Lab 12/26/16 040 NA 140 K 4.0 CL 105 CO2 27 BUN 15 CREATININE 1.1 Phosphorus: Lab Results Component Value Date PHOS 4.2 12/26/2016 Recent Labs Lab 12/26/16408 MG 2.1 Results No results found for the last 72 hours. PROBLEM LIST Principal Problem: Spontaneous pneumothorax Active Problems: Benign essential hypertension ASSESSMENT & PLAN 66 years old gentleman with past medical history of gastroesophageal reflux disease, histor y of spontaneous pneumothorax secondary to asymptomatic bleb 50 years ago status post resect ion on the right lung, chronic COPD with history of [id number]-jktn smoking, quit 1-1/2 year ag o, history of prostate cancer status post surgery he is in remission, history of atrial flut ter status post ablation 12 years ago, came to the hospital with right-sided pneumothorax as he was noticing right-sided pleuritic chest pain. Principal Problem: Spontaneous pneumothorax Status post right intercostal chest. Chest tube is clamped. Tolerated the procedure well. He was admitted for spontaneous pneumothorax with element of tension pneumothorax with midli ne shift. No more chest pain. Active Problems: Benign essential hypertension Blood pressure is better controlled with diltiazem I would give lactulose for constipation Patient diagnosed with: , and I agree with the following nutritional recommendations: JACKELINE MORRIS MD, FACP 12/27/2016 12:25 PM Dictation software, [employer], used which may contain error for similar sounding words even af ter review. Personal communication requested for any clarification. Portions of this chart may have been copied from previous notes for continuity of care purp ose onversion Transac tion, Provider Unknown - 12/26/2016 12:50 PM PDTFormatting of this note might be different f rom the original. Case Management by Jackie Riggs RN at 12/26/16 125 Author: Jackie Riggs RN Service: (none) Author Type: Registered Nurse Filed: 12/26/161252 Date of Service: 12/26/161249 Status: Signed Security Attendant: Jackie Riggs RN (Registered Nurse) 12/26/16 1242 Discharge Planning Evaluation Admitting Diagnosis Spontaneous Pneumothorax Readmission No Living Arrangements Spouse/significant other Support Systems Spouse/significant other Type of Residence Private residence House type House-Split level Independent with ADL's Yes Independent with Mobility Yes Home Care Services No Caregiver after Discharge No Mental Status Oriented Prior functional status Independent Power of Veterinary Virologist Yes Power of Veterinary Virologist Name Hoang (son) Anticipated Discharge Plan Post Acute Care Needs None at this time Plan communicated to patient/family Yes Resources Financial concerns No Transportation issues No Patient/Family concerns No Prescription Plan Yes Name of Pharmacy [facility] [place] Previous home health equipment No Vascular access device No Ostomy/Drains/Appliances No Anticipated Disposition Facility Type Home Met with patient and and discussed discharge planning, Pt is a 66 y.o., male admitted with spontaneous pneumothorax; currently has a chest tube. Patient is independent and lives at home w/ Yancy. Patient's PCP is: Manjit Roque Patient's insurance: Medicare/[employer] Coverage concerns: no concerns Medication coverage/concerns: no concerns Rx Bedside Delivery: Community resources utilized / needed: no Assistance in transportation: to transport Identification of any specific education / training: no Barriers to Discharge / Alternative housing needed: no Anticipated DCP: home w/ Jackie Riggs [phone] Jackeline Turner MD - 12/26/2016 9:08 AM PDT Progress Notes by Jackeline Morris MD at 12/26/16907 Author: Jackeline Morris MD Service: Hospitalist Author Type: Physician Filed: 12/26/16910 Date of Service: 12/26/16907 Status: Signed Security Attendant: Jackeline Morris MD (Physician) [facility] Service: Hospitalist Progress Note Pt: Janette Hurt AGE/SEX: 66 y.o. male ROOM: [address] [place] [address] : 1950 PCP: Manjit Roque ADMIT DATE: 12/25/2016 TODAY'S DATE: 12/26/2016 Hospital Day/Hospital Course: LOS: 1 day 66 years old gentleman with past medical history of gastroesophageal reflux disease, histor y of spontaneous pneumothorax secondary to asymptomatic bleb 50 years ago status post resect ion on the right lung, chronic COPD with history of 95-hzqh-xbrd smoking, quit 1-1/2 year ag o, history of prostate cancer status post surgery he is in remission, history of atrial flut ter status post ablation 12 years ago, came to the hospital with right-sided pneumothorax as he was noticing right-sided pleuritic chest pain. SUBJECTIVE: Patient seen and examine. He said he is feeling better. He is not in any kind of distress. Not having any chest pain. No chest pain, SOB, WEEKS. No cough on recumbency. Had no orthopnea or PND. No Abdominal pain, N/V or fever. Still feeling tired and fatigued. No dizziness or lightheadedness. Scheduled Medications: aspirin 81 mg Oral Daily atorvastatin 5 mg Oral Nightly cholecalciferol 2,000 Units Oral Daily diltiazem 60 mg Oral TID docusate sodium 100 mg Oral Daily imipramine 25 mg Oral Nightly lisinopril 20 mg Oral BID melatonin 5 mg Oral Nightly multivitamin with minerals 1 tablet Oral Daily Continuous Infusions PRN Medications acetaminophen OR acetaminophen, cyclobenzaprine, ondansetron OR ondansetron, oxyCOD ONE-acetaminophen, polyethylene glycol Allergy: Allergies Allergen Reactions Nsaids GI Distress Pt experiences GI distress with NSAIDS, only take his ASA 81mg daily and tolerates that f ine. OBJECTIVE: Vitals: Patient Vitals for the past 24 hrs: BP Temp Temp src Pulse Resp SpO2 Height Weight 12/26/16 0800 151/71 98 F (36.7 C) Oral 70 20 94 % - - 12/26/16 0437 136/70 97.8 F (36.6 C) Oral 61 18 - - - 12/25/16 2349 - 97.7 F (36.5 C) Oral 71 18 95 % - - 10/30/17 1934 179/84 97.9 F (36.6 C) Oral 75 14 95 % 1.905 m (6' 3") 92.2 kg (203 lb 4. 2 oz) I&O Detailed Table: No intake or output data in the 24 hours ending 12/26/16 0908 Patient Vitals for the past 96 hrs: Weight 12/25/161933 92.2 kg (203 lb 4.2 oz) Hemodynamics Last 24hrs: Physical Examination: Constitutional: Alert and oriented to person, place, and time. Appears well-developed and w ell-nourished. HEENT: Neck supple, no JVD, non icteric sclera. Cardiovascular: Normal rate, regular rhythm, normal heart sounds with S1 and S2, and intact distal pulses. Exam reveals no gallop and no friction rub. No murmur heard. Pulmonary/Chest: Decreased air entry on the right site Abdominal: Soft. Bowel sounds are normal. exhibits no distension and no mass. There is no t enderness. There is no rebound and no guarding. Extremeties/Musculoskeletal: Normal range of motion.exhibits no tenderness. exhibits no ed den. Neurological: Alert and oriented to person, place, and time. Has normal reflexes. No cran ial nerve deficit. Exhibits normal muscle tone. Coordination normal. Skin: Skin is warm and dry. No rash noted. No erythema. No pallor. Psychiatric: Has a normal mood and affect. Behavior is normal. Judgment normal. Not suicida l LABS: Recent Labs Lab 12/26/16 0409 WBC 8.23 HGB 14.4 HCT 41.7 PLT 282 NEUTOPHILPCT 66.44 MONOPCT 9.91 Recent Labs Lab 12/26/16 0409 NA 140 K 4.0 CL 105 CO2 27 BUN 15 CREATININE 1.1 Phosphorus: Lab Results Component Value Date PHOS 4.2 12/26/2016 Recent Labs Lab 12/26/16 0409 MG 2.1 Results No results found for the last 72 hours. PROBLEM LIST Principal Problem: Spontaneous pneumothorax Active Problems: Benign essential hypertension ASSESSMENT & PLAN 66 years old gentleman with past medical history of gastroesophageal reflux disease, histor y of spontaneous pneumothorax secondary to asymptomatic bleb 50 years ago status post resect ion on the right lung, chronic COPD with history of 84-xmbq-cnoe smoking, quit 1-1/2 year ag o, history of prostate cancer status post surgery he is in remission, history of atrial flut ter status post ablation 12 years ago, came to the hospital with right-sided pneumothorax as he was noticing right-sided pleuritic chest pain. Principal Problem: Spontaneous pneumothorax He had a spontaneous pneumothorax with element of tension pneumothorax with midline shift. Discussed with CT surgical team. CT scan done. Further treatment plan care by CT surgeon. Marielena brandt is not having any chest pain or hypoxia at this time. Active Problems: Benign essential hypertension Blood pressure is better controlled with diltiazem Patient diagnosed with: , and I agree with the following nutritional recommendations: JACKELINE MORRIS MD, FACP 12/26/2016 9:08 AM Dictation software, [employer], used which may contain error for similar sounding words even af ter review. Personal communication requested for any clarification. Portions of this chart may have been copied from previous notes for continuity of care purp ose onversion Transac tion, Provider Unknown - 12/25/2016 9:33 PM PDTFormatting of this note might be different f rom the original. Progress Notes by Suha Vinson RPH at 12/25/162132 Author: Suha Vinson RPH Service: Pharmacy Author Type: Pharmacist Filed: 12/25/162132 Date of Service: 12/25/162132 Status: Signed Security Attendant: Suha Vinson RPH (Pharmacist) Clinical Pharmacy Note: Renal Monitoring Janette Hurt 66 y.o. male Ht Readings from Last 1 Encounters: 12/25/16 1.905 m (6' 3") Wt Readings from Last 1 Encounters: 12/25/16 92.2 kg (203 lb 4.2 oz) Creatinine clearance cannot be calculated (No order found.) No results found for: CREATININE Pharmacy dosing for renal function per Dr. Ema Martin. Currently, there are no labs. Pharmacy will adjust medications, if necessary, when labs are reported. Suha Vinson PharmD 12/25/2016 9:32 PM docume nted in this encounter Plan of Treatment Not on filedocumented as of this encounter Procedures + +--------+ + + + | Procedure Name | Priori | Date/Time | Associated Diagnosis | Comments | | | ty | | | | + +--------+ + + + | XR CHEST 2 VIEWS | Routin | 12/29/2016 | | Results for this | | | e | 6:52 AM | | procedure are in the | | | | PDT | | results section. | + +--------+ + + + | XR CHEST 2 VIEWS | Routin | 12/28/2016 | | Results for this | | | e | 6:47 AM | | procedure are in the | | | | PDT | | results section. | + +--------+ + + + | XR CHEST 1 VIEW | Routin | 12/27/2016 | | Results for this | | | e | 12:25 PM | | procedure are in the | | | | PDT | | results section. | + +--------+ + + + | XR CHEST 1 VIEW | Routin | 12/27/2016 | | Results for this | | | e | 6:04 AM | | procedure are in the | | | | PDT | | results section. | + +--------+ + + + | EXTERNAL LAB: CBC | Routin | 12/27/2016 | | Results for this | | | e | 4:18 AM | | procedure are in the | | | | PDT | | results section. | + +--------+ + + + | XR CHEST 1 VIEW | Routin | 12/26/2016 | | Results for this | | | e | 11:25 AM | | procedure are in the | | | | PDT | | results section. | + +--------+ + + + | CT CHEST WO CONTRAST | Routin | 12/26/2016 | | Results for this | | | e | 7:43 AM | | procedure are in the | | | | PDT | | results section. | + +--------+ + + + | XR CHEST 2 VIEWS | Routin | 12/26/2016 | | Results for this | | | e | 7:07 AM | | procedure are in the | | | | PDT | | results section. | + +--------+ + + + | EXTERNAL LAB: CBC | Routin | 12/26/2016 | | Results for this | | | e | 4:09 AM | | procedure are in the | | | | PDT | | results section. | + +--------+ + + + | PHOSPHORUS | Routin | 12/26/2016 | | Results for this | | | e | 4:09 AM | | procedure are in the | | | | PDT | | results section. | + +--------+ + + + | MAGNESIUM | Routin | 12/26/2016 | | Results for this | | | e | 4:09 AM | | procedure are in the | | | | PDT | | results section. | + +--------+ + + + | BASIC METABOLIC | Routin | 12/26/2016 | | Results for this | | PANEL | e | 4:09 AM | | procedure are in the | | | | PDT | | results section. | + +--------+ + + + documented in this encounter Results XR Chest 2 Vws (12/29/2016 6:52 AM PDT) + + | Specimen | + + | | + + + + + | Impressions | Performed At | + + + | 1. Status post removal of right thoracostomy tube. No | | | pneumothorax. 2. Small bilateral pleural effusion and/or pleural | | | thickening. 3. Right basilar subsegmental atelectasis or scarring, | | | improved as compared to radiographs dated 12/28/2016. | | | | | + + + + + + | Narrative | Performed At | + + + | [facility] XR CHEST 2 VIEW FRONTAL AND LATERAL 12/29/2016 6:52 AM | | | HISTORY: 66 years. Male. Evaluate for pneumothorax. Status | | | post chest tube removal. TECHNIQUE: XR CHEST 2 VIEW FRONTAL AND | | | LATERAL. 2 view(s) obtained. COMPARISON: 12/28/2016. | | | FINDINGS: Interval removal of right thoracostomy tube. Improved | | | aeration of right lung. Ill-defined right basilar opacity with | | | blunting of right costophrenic sulcus and partial obscuration of right | | | dome of diaphragm. No pneumothorax. Minimal blunting of left | | | costophrenic sulcus. Normal cardiac size. Cholecystectomy clips. | | | Nonspecific gaseous distention of visualized bowel loops. | | + + + + + | Procedure Note | + + | Grayson, Rad Conversion - 10/10/2018 2:42 AM PDT [facility]TXR CHEST 2 VIEW FRONTAL AND | | [place]92/3/2017 6:52 AM HISTORY:66 years. Male. Evaluate for pneumothorax. Status | | post chest tube removal. TECHNIQUE:XR CHEST 2 VIEW FRONTAL AND LATERAL. 2 view(s) | | obtained. COMPARISON:12/28/2016. FINDINGS:Interval removal of right thoracostomy tube. | | Improved aeration of right lung. Ill-defined right basilar opacity with blunting of | | right costophrenic sulcus and partial obscuration of right dome of diaphragm. No | | pneumothorax. Minimal blunting of left costophrenic sulcus. Normal cardiac size. | | Cholecystectomy clips. Nonspecific gaseous distention of visualized bowel loops. | | IMPRESSION: 1. Status post removal of right thoracostomy tube. No pneumothorax.2. | | Small bilateral pleural effusion and/or pleural thickening.3. Right basilar | | subsegmental atelectasis or scarring, improved as compared to radiographs dated | | 12/28/2016. | | | |FINDINGS: | |Interval removal of right thoracostomy tube. Improved aeration of right lung. Ill-defined r ight basilar opacity with blunting of right costophrenic sulcus and partial obscuration of r ight dome of diaphragm. No pneumothorax. Minimal blunting of left | |costophrenic sulcus. Normal cardiac size. Cholecystectomy clips. Nonspecific gaseous disten tion of visualized bowel loops. | | | |IMPRESSION: | |1. Status post removal of right thoracostomy tube. No pneumothorax. | |2. Small bilateral pleural effusion and/or pleural thickening. | |3. Right basilar subsegmental atelectasis or scarring, improved as compared to radiographs dated 12/28/2016. | | | | | + + XR Chest 2 Vws (12/28/2016 6:47 AM PDT) + + | Specimen | + + | | + + + + + | Impressions | Performed At | + + + | 1. No pneumothorax. | | + + + + + + | Narrative | Performed At | + + + | [facility] 1950 66 years Male XR CHEST 2 VIEW FRONTAL AND | | | LATERAL 12/28/2016 6:47 AM INDICATION: Spontaneous right | | | pneumothorax. COMPARISON: December 27, 2016 TECHNIQUE: Two view | | | chest, PA and lateral views FINDINGS: Right chest tube in | | | unchanged position. No pneumothorax. Left lung is clear. Upper | | | mediastinal contours are normal. Heart size is normal. Right | | | basilar atelectasis/aspiration. Possible small right pleural effusion. | | | No acute osseous abnormality. | | + + + + + | Procedure Note | + + | Grayson, Rad Conversion - 10/10/2018 2:42 AM PDT [facility] | | 1950 | | 66 years Male | | XR CHEST 2 VIEW FRONTAL AND LATERAL | | 12/28/2016 6:47 AM | | | | INDICATION: Spontaneous right pneumothorax. | | | | COMPARISON: December 27, 2016 | | | | TECHNIQUE: Two view chest, PA and lateral views | | | | FINDINGS: | | | | Right chest tube in unchanged position. No pneumothorax. Left lung is clear. | | | | Upper mediastinal contours are normal. Heart size is normal. | | | | Right basilar atelectasis/aspiration. Possible small right pleural effusion. | | | | No acute osseous abnormality. | | | | IMPRESSION: | | | | 1. No pneumothorax. | | | | | + + XR Chest 1 Vw (12/27/2016 12:25 PM PDT) + + | Specimen | + + | | + + + + + | Impressions | Performed At | + + + | No pneumothorax seen. | | + + + + + + | Narrative | Performed At | + + + | [facility] 1950 66 years XR CHEST 1 VIEW 12/27/2016 12:00 | | | PM INDICATION: Pneumothorax. COMPARISON study: 12/27/2016 at | | | 556 and TECHNIQUE: 1 view FINDINGS: No convincing evidence | | | of pneumothorax seen. Right chest tube appears stable. | | | Cardiomediastinal silhouette appears stable. Unchanged small amount of | | | bibasilar opacities. Osseous structures appear grossly unremarkable. | | | | | + + + + + | Procedure Note | + + | Roe Galicia Conversion - 10/10/2018 2:42 AM PDT [id number] yearsXR CHEST | | 1 VIEW12/27/2016 12:00 PM INDICATION: Pneumothorax. COMPARISON study: 12/27/2016 at 556 | | and TECHNIQUE: 1 view FINDINGS: No convincing evidence of pneumothorax seen. Right | | chest tube appears stable. Cardiomediastinal silhouette appears stable. Unchanged small | | amount of bibasilar opacities. Osseous structures appear grossly unremarkable. | | IMPRESSION: No pneumothorax seen. Electronically signed by Florian Palomo MD on | | 12/27/2016 12:57 PM | | | |COMPARISON study: 12/27/2016 at 556 and | | | |TECHNIQUE: 1 view | | | |FINDINGS: No convincing evidence of pneumothorax seen. Right chest tube appears stable. Ca rdiomediastinal silhouette appears stable. Unchanged small amount of bibasilar opacities. Os seous structures appear grossly unremarkable. | | | |IMPRESSION: | |No pneumothorax seen. | | | | | + + XR Chest 1 Vw (12/27/2016 6:04 AM PDT) + + | Specimen | + + | | + + + + + | Impressions | Performed At | + + + | 1. Properly positioned right basilar thoracostomy tube 2. | | | Lower lung volumes with increasing atelectasis, at least. No focal | | | infiltrate or progression pleural air | | + + + + + + | Narrative | Performed At | + + + | HISTORY: 66 years old Male, spontaneous pneumothorax TECHNIQUE: | | | AP portable upright radiographic examination of the chest, 1 | | | December 2016. Prior study for comparison -- 26 December 2016 | | | FINDINGS: Mediastinum -- without midline shift, borderline left | | | ventricular megaly. Accentuated by hypoinflation. Some vascular | | | calcification. Lung markings are somewhat coarse. Increasing | | | atelectasis, decreased inspiratory result. An element of interstitial | | | edema may be superimposed although this could be technical only. | | | Thoracostomy tube in the lower right hemithorax is again noted. No | | | proven pleural line, if there is any residual pleural air it is not | | | progressed. No focal infiltrate or evidence of advanced pulmonary | | | venous hypertension. Lung volumes are less when compared to the prior | | | study. Degenerative change the spine and shoulders stable. | | + + + + + | Procedure Note | + + | Grayson, Rad Conversion - 10/10/2018 2:42 AM PDT HISTORY: 66 years old Male, spontaneous | | pneumothorax TECHNIQUE: AP portable upright radiographic examination of the chest, 1 | | December 2016. Prior study for comparison -- 26 December 2016 FINDINGS: Mediastinum -- | | without midline shift, borderline left ventricular megaly. Accentuated by hypoinflation. | | Some vascular calcification. Lung markings are somewhat coarse. Increasing atelectasis, | | decreased inspiratory result. An element of interstitial edema may be superimposed | | although this could be technical only. Thoracostomy tube in the lower right hemithorax | | is again noted. No proven pleural line, if there is any residual pleural air it is not | | progressed. No focal infiltrate or evidence of advanced pulmonary venous hypertension. | | Lung volumes are less when compared to the prior study. Degenerative change the spine | | and shoulders stable. IMPRESSION: 1. Properly positioned right basilar thoracostomy | | tube 2. Lower lung volumes with increasing atelectasis, at least. No focal infiltrate or | | progression pleural air | | 6:38 AM | |IMPRESSION: | | | |1. Properly positioned right basilar thoracostomy tube | | | |2. Lower lung volumes with increasing atelectasis, at least. No focal infiltrate or progres debby pleural air | | | | | + + External Lab: CBC (12/27/2016 4:18 AM PDT) + + + + + + | Component | Value | Ref Range | Performed | Pathologist | | | | | At | Signature | + + + + + + | WBC | 10.47 | 3.80 - 11.00 | EXTERNAL | | | | | K/uL | LAB | | + + + + + + | RED CELL | 4.67 | 4.20 - 5.70 | EXTERNAL | | | COUNT | | M/uL | LAB | | + + + + + + | Hgb | 14.4 | 13.2 - 17.0 | EXTERNAL | | | | | g/dL | LAB | | + + + + + + | Hematocrit, | 42.3 | 39.0 - 50.0 % | EXTERNAL | | | POC | | | LAB | | + + + + + + | MCV | 90.4 | 80.0 - 100.0 fl | EXTERNAL | | | | | | LAB | | + + + + + + | MCH | 30.8 | 27.0 - 34.0 pg | EXTERNAL | | | | | | LAB | | + + + + + + | MCHC | 34.0 | 32.0 - 35.5 | EXTERNAL | | | | | g/dL | LAB | | + + + + + + | RDW-CV | 42.0 | 37 - 53 fl | EXTERNAL | | | | | | LAB | | + + + + + + | Platelet | 304 | 150 - 400 K/uL | EXTERNAL | | | Count | | | LAB | | | Plasma | | | | | + + + + + + | MPV | 7.6 | fl | EXTERNAL | | | | | | LAB | | + + + + + + | Differentia | AUTOMATED | | EXTERNAL | | | l Type | | | LAB | | + + + + + + | % Segmented | 78.39 | % | EXTERNAL | | | | | | LAB | | | Neutrophils | | | | | + + + + + + | % | 11.84 | % | EXTERNAL | | | Lymphocytes | | | LAB | | + + + + + + | % Monocytes | 7.80 | % | EXTERNAL | | | | | | LAB | | + + + + + + | % | 1.80 | % | EXTERNAL | | | Eosinophils | | | LAB | | + + + + + + | % Basophils | 0.17 | % | EXTERNAL | | | | | | LAB | | + + + + + + | Absolute | 8.20 (H) | 1.90 - 7.40 | EXTERNAL | | | Segmented | | K/uL | LAB | | | Neutrophils | | | | | + + + + + + | Absolute | 1.24 | 1.00 - 3.90 | EXTERNAL | | | Lymphocytes | | K/uL | LAB | | + + + + + + | Absolute | 0.82 (H) | 0.00 - 0.80 | EXTERNAL | | | Monocytes | | K/uL | LAB | | + + + + + + | Absolute | 0.19 | 0.00 - 0.50 | EXTERNAL | | | Eosinophils | | K/uL | LAB | | + + + + + + | Absolute | 0.02Comment: Testing | 0.00 - 0.10 | EXTERNAL | | | Basophils | performed at [facility], [address] | K/uL | LAB | | | | [address], | | | | | | [place] [address] | | | | + + + + + + + + | Specimen | + + | Blood specimen | | (specimen) | + + + +---------+ + + | Performing | Address | City/State/Zipcode | Phone Number | | Organization | | | | + +---------+ + + | EXTERNAL LAB | | | | + +---------+ + + XR Chest 1 Vw (12/26/2016 11:25 AM PDT) + + | Specimen | + + | | + + + + + | Impressions | Performed At | + + + | 1. Chest tube in expected position. Small right residual | | | pneumothorax. Electronically signed by Neymar Moss MD on | | | 12/26/2016 11:30 AM | | + + + + + + | Narrative | Performed At | + + + | [facility] 1950 66 years XR CHEST 1 VIEW 12/26/2016 | | | 11:08 AM INDICATION: Shortness of breath COMPARISON: November | | | 2016 TECHNIQUE: Chest 1 view, AP view of the chest | | | FINDINGS: Right chest tube overlying the pleural space with the tip | | | near the mediastinal border. Right basilar atelectasis/scarring | | | at the right costophrenic angle. Small residual apical | | | pneumothorax. Left lung is clear. Heart size and mediastinal | | | contours are normal. | | + + + + ------+ | Procedure Note | + ------+ | Grayson, Rad Conversion - 10/10/2018 2:42 AM PDT [id number] yearsXR CHEST | | 1 VIEW12/26/2016 11:08 AM INDICATION: Shortness of breath COMPARISON: December 26, 2016 | | TECHNIQUE: Chest 1 view, AP view of the chest FINDINGS: Right chest tube overlying the | | pleural space with the tip near the mediastinal border. Right basilar | | atelectasis/scarring at the right costophrenic angle. Small residual apical | | pneumothorax. Left lung is clear. Heart size and mediastinal contours are normal. | | IMPRESSION: 1. Chest tube in expected position. Small right residual pneumothorax. | | | |COMPARISON: December 26, 2016 | | | |TECHNIQUE: Chest 1 view, AP view of the chest | | | |FINDINGS: Right chest tube overlying the pleural space with the tip near the mediastinal trevor rder. | | | | | |Right basilar atelectasis/scarring at the right costophrenic angle. | | | |Small residual apical pneumothorax. Left lung is clear. | | | |Heart size and mediastinal contours are normal. | | | |IMPRESSION: | | | |1. Chest tube in expected position. Small right residual pneumothorax. | | | | | + ------+ CT Chest wo Contrast (12/26/2016 7:43 AM PDT) + + | Specimen | + + | | + + + + + | Impressions | Performed At | + + + | 1. Moderate to large right pneumothorax, most prominent at the | | | base. There appears to be mild shift of the mediastinum to the left. | | | 2. Multiple hypodensities identified within the liver, spleen and | | | kidneys, incompletely characterized. Although these could potentially | | | represent cysts, this is difficult to confirm on the current | | | unenhanced study. Correlation with CT or MRI of the abdomen with and | | | without contrast suggested for definitive assessment. Critical | | | findings discussed with Dr. Morris at 7:48 AM on 12/26/2016. | | | | | + + + + + + | Narrative | Performed At | + + + | [facility] CT CHEST WO CONTRAST HISTORY: Shortness of | | | breath. Pneumothorax. TECHNIQUE: CT examination of the chest was | | | performed without contrast. CT was performed with automated exposure | | | control and adjustment of the mA according to patient size. | | | COMPARISON: Chest x-rays 12/26/2016 at 7:02 AM FINDINGS: Lack of | | | intravenous contrast diminishes sensitivity, especially for assessment | | | of lymphadenopathy, upper abdominal and vascular structures. | | | Lungs and pleura: Moderate to large right pneumothorax seen, more | | | prominent at the base. There is resulting volume loss of the right | | | lung seen. Dependent atelectasis noted involving the right middle and | | | lower lobes. There is small amount of fluid component identified | | | within the pleural space. Mild emphysematous changes noted involving | | | the lungs. There is mild shift of the mediastinum to the left | | | secondary to the pneumothorax. Compared to the chest x-ray at 7:02 AM, | | | no convincing evidence of an significant change appreciated. | | | Aorta: Does not appear aneurysmal Pulmonary arteries: No definite | | | enlargement seen. Lymph nodes: No enlarged mediastinal or hilar | | | lymph nodes by CT size criteria seen. Heart: No cardiomegaly or | | | pericardial effusion seen. Esophagus: Does not appear dilated. | | | Small hiatal hernia. Visualized thyroid: Appears unremarkable. | | | Visualized abdominal organs: In the right lobe of the liver on series | | | 3, image 55 there is a 1.2 cm hypodensity seen, incompletely | | | characterized. Tiny hypodensity on series 3, image 57 measuring | | | subcentimeter in size is too small to accurately characterize. | | | Patient is postcholecystectomy. Within the spleen, there are 2-3 small | | | hypodensities, incompletely characterized. Within the right kidney on | | | series 3, image 71 there is a 2.4 cm hypodensity seen, partially | | | visualized, incompletely characterized. Osseous structures: No | | | acute or destructive osseous process seen. | | + + + + + | Procedure Note | + + | Grayson, Rad Conversion - 10/10/2018 2:42 AM PDT [facility] | | HISTORY:Shortness of breath. Pneumothorax. TECHNIQUE:CT examination of the chest was | | performed without contrast. CT was performed with automated exposure control and | | adjustment of the mA according to patient size. COMPARISON:Chest x-rays 12/26/2016 at | | 7:02 AM FINDINGS: Lack of intravenous contrast diminishes sensitivity, especially for | | assessment of lymphadenopathy, upper abdominal and vascular structures. Lungs and | | pleura: Moderate to large right pneumothorax seen, more prominent at the base. There is | | resulting volume loss of the right lung seen. Dependent atelectasis noted involving the | | right middle and lower lobes. There is small amount of fluid component identified within | | the pleural space. Mild emphysematous changes noted involving the lungs. There is mild | | shift of the mediastinum to the left secondary to the pneumothorax. Compared to the | | chest x-ray at 7:02 AM, no convincing evidence of an significant change appreciated. | | Aorta: Does not appear aneurysmal Pulmonary arteries: No definite enlargement seen. | | Lymph nodes: No enlarged mediastinal or hilar lymph nodes by CT size criteria seen. | | Heart: No cardiomegaly or pericardial effusion seen. Esophagus: Does not appear dilated. | | Small hiatal hernia. Visualized thyroid: Appears unremarkable. Visualized abdominal | | organs: In the right lobe of the liver on series 3, image 55 there is a 1.2 cm | | hypodensity seen, incompletely characterized. Tiny hypodensity on series 3, image 57 | | measuring subcentimeter in size is too small to accurately characterize. Patient is | | postcholecystectomy. Within the spleen, there are 2-3 small hypodensities, incompletely | | characterized. Within the right kidney on series 3, image 71 there is a 2.4 cm | | hypodensity seen, partially visualized, incompletely characterized. Osseous structures: | | No acute or destructive osseous process seen. IMPRESSION: 1. Moderate to large right | | pneumothorax, most prominent at the base. There appears to be mild shift of the | | mediastinum to the left.2. Multiple hypodensities identified within the liver, spleen | | and kidneys, incompletely characterized. Although these could potentially represent | | cysts, this is difficult to confirm on the current unenhanced study. Correlation with CT | | or MRI of the abdomen with and without contrast suggested for definitive assessment. | | Critical findings discussed with Dr. Morris at 7:48 AM on 12/26/2016. Electronically | | signed by Florian Palomo MD on 12/26/2016 7:49 AM | |Visualized abdominal organs: In the right lobe of the liver on series 3, image 55 there is a 1.2 cm hypodensity seen, incompletely characterized. Tiny hypodensity on series 3, image 5 7 measuring subcentimeter in size is too small to accurately | |characterize. Patient is postcholecystectomy. Within the spleen, there are 2-3 small hypode nsities, incompletely characterized. Within the right kidney on series 3, image 71 there is a 2.4 cm hypodensity seen, partially visualized, incompletely | |characterized. | | | |Osseous structures: No acute or destructive osseous process seen. | | | | | |IMPRESSION: | |1. Moderate to large right pneumothorax, most prominent at the base. There appears to be m ild shift of the mediastinum to the left. | |2. Multiple hypodensities identified within the liver, spleen and kidneys, incompletely ch aracterized. Although these could potentially represent cysts, this is difficult to confirm on the current unenhanced study. Correlation with CT or MRI of the | |abdomen with and without contrast suggested for definitive assessment. | | | |Critical findings discussed with Dr. Morris at 7:48 AM on 12/26/2016. | | | | | + + XR Chest 2 Vws (12/26/2016 7:07 AM PDT) + + | Specimen | + + | | + + + + + | Impressions | Performed At | + + + | 1. Moderate loculated right pneumothorax with atelectasis and/or | | | consolidation of the underlying lung, increased as compared to | | | radiographs dated 12/25/2016. | | + + + + + + | Narrative | Performed At | + + + | [facility] XR CHEST 2 VIEW FRONTAL AND LATERAL 12/26/2016 7:07 | | | AM HISTORY: 66 years. Male. Chest pain. Spontaneous right | | | pneumothorax. TECHNIQUE: XR CHEST 2 VIEW FRONTAL AND LATERAL. 2 | | | view(s) obtained. COMPARISON: 12/25/2016. FINDINGS: | | | Moderate loculated right pneumothorax, increased as compared to | | | radiographs dated 12/25/2016. Increasing atelectasis and or | | | consolidation of the underlying lung. No pleural effusion. Left lung | | | is well aerated. No left pleural effusion or left pneumothorax. | | | Normal cortex size. Mild aortic atherosclerosis. Osteopenia. | | | Cholecystectomy clips. | | + + + + + | Procedure Note | + + | Grayson, Rad Conversion - 10/10/2018 2:42 AM PDT [facility]ANETTE HURTXR CHEST 2 VIEW FRONTAL AND | | [id number]/26/2016 7:07 AM HISTORY:66 years. Male. Chest pain. Spontaneous right | | pneumothorax. TECHNIQUE:XR CHEST 2 VIEW FRONTAL AND LATERAL. 2 view(s) obtained. | | COMPARISON:12/25/2016. FINDINGS:Moderate loculated right pneumothorax, increased as | | compared to radiographs dated 12/25/2016. Increasing atelectasis and or consolidation of | | the underlying lung. No pleural effusion. Left lung is well aerated. No left pleural | | effusion or left pneumothorax. Normal cortex size. Mild aortic atherosclerosis. | | Osteopenia. Cholecystectomy clips. IMPRESSION: 1. Moderate loculated right pneumothorax | | with atelectasis and/or consolidation of the underlying lung, increased as compared to | | radiographs dated 12/25/2016. | | 7:12 AM | |12/25/2016. | | | |FINDINGS: | |Moderate loculated right pneumothorax, increased as compared to radiographs dated 7. Increasing atelectasis and or consolidation of the underlying lung. No pleural effusion. Left lung is well aerated. No left pleural effusion or left | |pneumothorax. Normal cortex size. Mild aortic atherosclerosis. Osteopenia. Cholecystectomy clips. | | | |IMPRESSION: | |1. Moderate loculated right pneumothorax with atelectasis and/or consolidation of the unde rlying lung, increased as compared to radiographs dated 12/25/2016. | | | | | + + External Lab: CBC (12/26/2016 4:09 AM PDT) + + + + + + | Component | Value | Ref Range | Performed | Pathologist | | | | | At | Signature | + + + + + + | WBC | 8.23 | 3.80 - 11.00 | EXTERNAL | | | | | K/uL | LAB | | + + + + + + | RED CELL | 4.65 | 4.20 - 5.70 | EXTERNAL | | | COUNT | | M/uL | LAB | | + + + + + + | Hgb | 14.4 | 13.2 - 17.0 | EXTERNAL | | | | | g/dL | LAB | | + + + + + + | Hematocrit, | 41.7 | 39.0 - 50.0 % | EXTERNAL | | | POC | | | LAB | | + + + + + + | MCV | 89.6 | 80.0 - 100.0 fl | EXTERNAL | | | | | | LAB | | + + + + + + | MCH | 31.0 | 27.0 - 34.0 pg | EXTERNAL | | | | | | LAB | | + + + + + + | MCHC | 34.7 | 32.0 - 35.5 | EXTERNAL | | | | | g/dL | LAB | | + + + + + + | RDW-CV | 42.9 | 37 - 53 fl | EXTERNAL | | | | | | LAB | | + + + + + + | Platelet | 282 | 150 - 400 K/uL | EXTERNAL | | | Count | | | LAB | | | Plasma | | | | | + + + + + + | MPV | 7.5 | fl | EXTERNAL | | | | | | LAB | | + + + + + + | Differentia | AUTOMATED | | EXTERNAL | | | l Type | | | LAB | | + + + + + + | % Segmented | 66.44 | % | EXTERNAL | | | | | | LAB | | | Neutrophils | | | | | + + + + + + | % | 20.41 | % | EXTERNAL | | | Lymphocytes | | | LAB | | + + + + + + | % Monocytes | 9.91 | % | EXTERNAL | | | | | | LAB | | + + + + + + | % | 2.56 | % | EXTERNAL | | | Eosinophils | | | LAB | | + + + + + + | % Basophils | 0.68 | % | EXTERNAL | | | | | | LAB | | + + + + + + | Absolute | 5.47 | 1.90 - 7.40 | EXTERNAL | | | Segmented | | K/uL | LAB | | | Neutrophils | | | | | + + + + + + | Absolute | 1.68 | 1.00 - 3.90 | EXTERNAL | | | Lymphocytes | | K/uL | LAB | | + + + + + + | Absolute | 0.82 (H) | 0.00 - 0.80 | EXTERNAL | | | Monocytes | | K/uL | LAB | | + + + + + + | Absolute | 0.21 | 0.00 - 0.50 | EXTERNAL | | | Eosinophils | | K/uL | LAB | | + + + + + + | Absolute | 0.06Comment: Testing | 0.00 - 0.10 | EXTERNAL | | | Basophils | performed at [facility], [address] | [address] | LAB | | | | [address], | | | | | | [place] [address] | | | | + + + + + + + + | Specimen | + + | Blood specimen | | (specimen) | + + + +---------+ + + | Performing | Address | City/State/Zipcode | Phone Number | | Organization | | | | + +---------+ + + | EXTERNAL LAB | | | | + +---------+ + + Phosphorus (12/26/2016 4:09 AM PDT) + + + + + + | Component | Value | Ref Range | Performed | Pathologist | | | | | At | Signature | + + + + + + | PHOSPHORUS | 4.2Comment: Testing | 2.3 - 4.8 mg/dL | EXTERNAL | | | | performed at [facility], [address] | | LAB | | | | [address], | | | | | | [place] [address] | | | | + + + + + + + + | Specimen | + + | Blood specimen | | (specimen) | + + + +---------+ + + | Performing | Address | City/State/Zipcode | Phone Number | | Organization | | | | + +---------+ + + | EXTERNAL LAB | | | | + +---------+ + + Magnesium (12/26/2016 4:09 AM PDT) + + + + + + | Component | Value | Ref Range | Performed | Pathologist | | | | | At | Signature | + + + + + + | Magnesium | 2.1Comment: Testing | 1.7 - 2.4 mg/dL | EXTERNAL | | | | performed at [facility], [address] | | LAB | | | | [address], | | | | | | [place] [address] | | | | + + + + + + + + | Specimen | + + | Blood specimen | | (specimen) | + + + +---------+ + + | Performing | Address | City/State/Zipcode | Phone Number | | Organization | | | | + +---------+ + + | EXTERNAL LAB | | | | + +---------+ + + Basic Metabolic Panel (12/26/2016 4:09 AM PDT) + + + + + + | Component | Value | Ref Range | Performed | Pathologist | | | | | At | Signature | + + + + + + | Na | 140 | 135 - 145 | EXTERNAL | | | | | mmol/L | LAB | | + + + + + + | K | 4.0 | 3.5 - 4.9 | EXTERNAL | | | | | mmol/L | LAB | | + + + + + + | Cl | 105 | 99 - 109 mmol/L | EXTERNAL | | | | | | LAB | | + + + + + + | CO2 | 27 | 23 - 32 mmol/L | EXTERNAL | | | | | | LAB | | + + + + + + | Anion Gap | 12 | 5 - 20 mmol/L | EXTERNAL | | | | | | LAB | | + + + + + + | Glucose, | 97 | 65 - 99 mg/dL | EXTERNAL | | | Fasting | | | LAB | | + + + + + + | BUN | 15 | 8 - 25 mg/dL | EXTERNAL | | | | | | LAB | | + + + + + + | Creatinine | 1.1 | 0.70 - 1.30 | EXTERNAL | | | | | mg/dL | LAB | | + + + + + + | BUN/Creatin | 14 | | EXTERNAL | | | ine Ratio | | | LAB | | + + + + + + | Calcium | 8.9 | 8.5 - 10.5 | EXTERNAL | | | | | mg/dL | LAB | | + + + + + + | Estimated | >60Comment: GFR <60: | mL/min/1.73m2 | EXTERNAL | | | GFR | CHRONIC KIDNEY DISEASE, | | LAB | | | | IF FOUND OVER A 3 MONTH | | | | | | PERIOD.GFR <15: KIDNEY | | | | | | FAILURE.FOR | | | | | | AMERICANS, MULTIPLY THE | | | | | | CALCULATED GFR BY | | | | | | 1.210.Testing performed | | | | | | at [facility], [address] | | | | | | [address], | | | | | | [place] [address] | | | | + + + + + + + + | Specimen | + + | Blood specimen | | (specimen) | + + + +---------+ + + | Performing | Address | City/State/Zipcode | Phone Number | | Organization | | | | + +---------+ + + | EXTERNAL LAB | | | | + +---------+ + + documented in this encounter Visit Diagnoses + + | Diagnosis | + + | Spontaneous pneumothorax Other pneumothorax | + + documented in this encounter
--- OUTSIDE RECORDS SUMMARY | ~2019-01-31 | XMS | Encounter Summary ---
Demographics + + + | Address | [address] | | | [place] [address] | + + + | Home Phone | | + + + | Preferred Language | Unknown | + + + | Marital Status | | + + + | Moravian Affiliation | 1041 | + + + | Race | Unknown | + + + | Ethnic Group | Unknown | + + + Author + + + | Author | [facility] | | | and Markana | + + + | Organization | [facility] | | | and [...] | [place] | | | | | [address] | | + + + + + Care Team Providers + +------+ + | Care Shop Service Technician Name | Role | Phone | + +------+ + | Manjit Roque MD | PCP | | + +------+ + Encounter Details +--------+ + + + + | Date | Type | Department | Care Team | Description | +--------+ + + + + | 04/19/ | Abstract | [facility] | Faustino Price MD | | | 2012 | | GASTROENTEROLOGY | [address], [place] | | | | | [address] | [address] [place], [place] | | | | | [address] [place], [place] | [address] | | | | | [address] | | | | | | [phone] | | | +--------+ + + + [...]
--- OUTSIDE RECORDS SUMMARY | ~2019-01-31 | XMS | Encounter Summary ---
Demographics + + + | Address | [address] | | | [place] [address] | + + + | Home Phone | | + + + | Preferred Language | Unknown | + + + | Marital Status | | + + + | Druze Affiliation | 1041 | + + + | Race | Unknown | + + + | Ethnic Group | Unknown | + + + Author + + + | Author | [facility] | | | and [place]ana | + + + | Organization | [facility] | | | and Markana [...] | [place] | | | | | [address] | | + + + + + Care Team Providers + +------+ + | Care Truck Supervisor Name | Role | Phone | [...] 2012 | | GASTROENTEROLOGY | [address], [place] | | | | | [address] | [address] [place], [place] | | | | | [address] [place], [place] | [address] | | | | | [address] | | | | | | [phone] | | | +--------+ + + + [...]
--- OUTSIDE RECORDS SUMMARY | ~2019-01-31 | XMS | Encounter Summary ---
Demographics + + + | Address | [address] | | | [place] [address] | + + + | Home Phone | | + + + | Preferred Language | Unknown | + + + | Marital Status | | + + + | Holiness Affiliation | 1041 | + + + | Race | Unknown | + + + | Ethnic Group | Unknown | + + + Author + + + | Author | [facility] | | | and Markana | + + + | Organization | [facility] | | | [...] [place] | | | | | [address] | | + + + + + Care Team Providers + +------+ + | Care Lens Dotter Name | Role | Phone | + [...] 2012 | | GASTROENTEROLOGY | [address], [place] | | | | | [address] | [address] [place], [place] | | | | | [address] [place], [place] | [address] | | | | | [address] | | | | | | [phone] | | | +--------+ + + + [...]
--- OUTSIDE RECORDS SUMMARY | ~2019-01-31 | XMS | Encounter Summary ---
Demographics + + + | Address | [address] | | | [place] [address] | + + + | Home Phone | | + + + | Preferred Language | Unknown | + + + | Marital Status | | + + + | Faith Affiliation | 1041 | + + + | Race | Unknown | + + + | Ethnic Group | Unknown | + + + Author + + + | Author | [facility] | | | and Markana | + + + | Organization | [facility] | | | and [place] | + + + | Address | Unknown | + + + | Phone | Unavailable | + + + Support + + + + + | Name | Relationship | Address | Phone | + + + + + | Yancy Rodas | ECON | [address] | | | | | [place], [place] | | | | | [address] | | + + + + + Care Team Providers + +------+ + | Care Charger Operator Name | Role | Phone | + +------+ + PCP | Unavailable | + +------+ + Encounter Details +--------+ + + + + | Date | Type | Department | Care Team | Description | +--------+ + + + + | 07/15/ | Hospital | [facility] | | | | 1991 | Encounter | [facility] | | | | | | [address] | | | | | | [place] | | | | | | [address] | | | | | | [phone] | | | +--------+ + + + [...]
--- OUTSIDE RECORDS SUMMARY | ~2019-01-31 | XMS | Encounter Summary ---
Demographics + + + | Address | [address] | | | [place] [address] | + + + | Home Phone | | + + + | Preferred Language | Unknown | + + + | Marital Status | | + + + | Gnosticist Affiliation | CAT | + + + | Race | White | + + + | Ethnic Group | Not or | + + + Author + + + | Author | [facility] | + + + | Organization | [facility] | + + + | Address | Unknown | + + + | Phone | Unavailable | + + + Support + + + + + | Name | Relationship | Address | Phone | + + + + + | Yancy Rodas | ECON | [address] | | | | | [place] | | | | | [address] | | + + + + + Care Team Providers + +------+ + | 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 | Phone | + +------+ + PCP | Unavailable | + +------+ + Encounter Details +--------+ + + + + | Date | Type | Department | Care Team | Description | +--------+ + + + + | 01/05/ | Hospital | Dermatopathology | | | | 2014 | Encounter | [address] | | | | | | Mailcode: [id number] | | | | | | [facility] | | | | | | and Healing, | | | | | | [address], | | | | | | Floor [place], [place] | | | | | | [address] | | | | | | [phone] | | | +--------+ + + + [...] | + +--------+ + + + | DERMATOPATHOLOGY(CON | Routin | 01/05/2015 | | Results for this | | SULT) | e | | | procedure are in the | | | | | | results section. | + +--------+ + + + documented in this encounter Results DERMATOPATHOLOGY(CONSULT) (01/05/2015) + + + + + + | Component | Value | Ref Range | Performed | Pathologist | | | | | At | Signature | + + + + + + | DERMATOPATH | THIS IS AN ADDENDUM | | [facility] | | | (CONSULT) | REPORT SOURCE OF | | DERMATOPATH | | | | SPECIMEN:A Rt ant thigh | | OLOGY | | | | biopsySOURCE OF | | | | | | SPECIMEN:B Rt. distal | | | | | | posterior lat thigh | | | | | | biopsy CLINICAL | | | | | | DESCRIPTION:A & B: | | | | | | Clinically r/o BCC. 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 | | | | | | A: In the right | | | | | | anterior thigh biopsy, | | | | | | there is slightly | | | | | | papillatedepidermal | | | | | | acanthosis with | | | | | | elongation and | | | | | | interweaving of the rete | | | | | | ridgeswith | | | | | | hyperpigmentation along | | | | | | the basal layer, foci of | | | | | | small collections | | | | | | ofneutrophils in the | | | | | | upper layers, | | | | | | parakeratosis with | | | | | | neutrophils, anddilated | | | | | | blood vessels surrounded | | | | | | by a lymphocytic | | | | | | infiltrate in | | | | | | thepapillary dermis.B: | | | | | | In the right distal | | | | | | posterior lateral thigh | | | | | | biopsy, there | | | | | | isparakeratosis with | | | | | | neutrophils, a decreased | | | | | | granular layer, | | | | | | psoriasiformepidermal | | | | | | hyperplasia and dilated | | | | | | blood vessels surrounded | | | | | | by a | | | | | | lymphocyticinfiltrate in | | | | | | the papillary dermis. 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 B: | | | | | | FEATURES OF PSORIASIS. | | | | | | NOTE: I agree | | | | | | entirely with your | | | | | | interpretation. 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 No basal | | | | | | cell carcinoma is | | | | | | identified in either of | | | | | | the specimens. | | | | | | Materials | | | | | | Returned:[id number] | | | | | | [id number] x 2 | | | | | | slides | | | | | | ADDENDUM:PAS stains | | | | | | performed on both the A | | | | | | and B specimens are | | | | | | negative for | | | | | | fungalhyphae, and the | | | | | | diagnoses remain | | | | | | unchanged. My | | | | | | electronic signature | | | | | | indicates that I have | | | | | | personally reviewed | | | | | | alldiagnostic slides, | | | | | | the gross and/or | | | | | | microscopic portion of | | | | | | thisreport and | | | | | | formulated the final | | | | | | diagnosis. | | | | | | Rendering Diagnostician: | | | | | | Anabella Davenport | | | | | | Renita | | | | | | MDPathologistElectronica | | | | | | lly Signed 01/15/2015 | | | | | | 12:05PM | | | | + + + + + + + + | Specimen | + + | | + + + + + | Narrative | Performed At | + + + | | | + + + + + + + + | Performing | Address | City/State/Zipcode | Phone Number | | Organization | | | | + + + + + | [facility] | Mailcode [address], [address] | [place] [address] | | | DERMATOPATHOLOGY | [address] | | | + + + + + documented in this encounter Visit Diagnoses Not on filedocumented in this encounter"
--- OUTSIDE RECORDS SUMMARY | ~2019-01-31 | XMS | Encounter Summary ---
Demographics + + + | Address | [address] | | | [place] [address] | + + + | Home Phone | | + + + | Preferred Language | Unknown | + + + | Marital Status | | + + + | Presybeterian Affiliation | CAT | + + + | Race | White | + + + | Ethnic Group | Not or | + + + Author + + + | Author | [facility] | + + + | Organization | [facility] | + + + | Address | Unknown | + + + | Phone | Unavailable | + + + Support + + + + + | Name | Relationship | Address | Phone | + + + + + | Yancy Hurt | ECON | [address] | | | | | [place] | | | | | [address] | | + + + + + Care Team Providers + +------+ + | Care Burr Machine Operator Name | Role | Phone | + +------+ + | Rosangela Dumas MD | PCP | | + +------+ + Reason for Visit + + + | Reason | Comments | + + + | Chest pain | | + + + AUTH/CERT +--------+--------+ + + + + | Status | Reason | Specialty | Diagnoses / | Referred By | Referred To | | | | | Procedures | Contact | Contact | +--------+--------+ + + + + | | | | | | | +--------+--------+ + + + + Encounter Details +--------+ + + + + | Date | Type | Department | Care Team | Description | +--------+ + + + + | 11/05/ | Emergency | Intensive Care | Misty Murry, | | | 2018 - | | Unit at [facility] | MD [address] | | | | | [facility] [address] | [place], [place] | | | 11/06/ | | [place], | [address] | | | 2018 | | [place] [address] | [phone] | | | | | [phone] | | | | | | | Gómez Noble, | | | | | | MD [address] | | | | | | [place], [place] | | | | | | [address] | | | | | | [phone] | | | | | | | | +--------+ + + + [...] + documented in this encounter Discharge Summaries Gómez Noble MD - 11/06/2017 9:04 AM PDTFormatting of this note might be different f rom the original. DISCHARGE SUMMARY Discharging Physician: GMÓEZ NOBLE MD PCP: Rosangela Dumas MD Admission Date: 11/05/2017 Discharge Date: 11/06/17 Consults: None Major Procedures: None Major Diagnostic Imaging: None Discharge Diagnosis: Noncardiac chest pain Admitting Presentation: Admission History History of present illness is per the patient, who appears to be a good historian, conversa tion with the ED physician, records from [facility] in [place], and the [facility] medical record. The ED physician has asked me to evaluate this patient for admission. She reports that he presented complaining of pain in the chest which seemed quite atypical. She reports that he is now pain free and that his initial troponin is negative. He has an abnormal EKG without previous EKGs in our system to compare to. Patient reports that he was fishing on the [place] yesterday. He has felt in his [facility] recently but when he was tying his boat up he felt a pop in his right s houlder followed by some hhsw-zj-dasscjjr pain. This did not bother him much until about 11: 50 p.m. when he woke from sleep with screaming pain which he rated at 12/10 in intensi ty. The pain was located in the top of his right shoulder. It did not radiate. It was wor se with any activity or movement. It was so bad that it kept him from sleeping. He took 2 of his 's Tylenol threes and these did not seem to help at all. At around 5:30 this mor james he had fairly sudden onset of intense pain across his entire anterior chest and abdomen which he related was an 8/10 in intensity. Nothing seemed to make it any better or worse. It did not radiate into his neck, limbs, or back. He had no associated symptoms. He took 1 nitroglycerin at home which seemed to help a little. He took a 2nd nitroglycerin which di d not seem to help. The patient presented to the ED and at the time of my evaluation he reports that his right shoulder still feels a little bit painful. He rates his pain as a 2/10 at rest. It is stil l worse if he puts his shoulder through any range of motion. His chest and abdominal pain h as completely resolved. 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 He denies history of coronary artery disease but repo rts that he has had problems with esophageal spasm in the past. Admission Exam General. Well-developed, well-nourished appearing male in no apparent acute distress. Vitals. Temperature 36.7degrees. Pulse 68. Respiratory rate 18. Blood pressure 148/65. O 2 sat 99 percent on room air. Skin. Warm and dry without rash. HEENT. Sclera and conjunctiva are clear. Oropharynx is damp and benign. Neck is supple a nd without masses or tenderness. Chest. Clear to auscultation and percussion. Respirations are unlabored. Cardiovascular. Regular in rate and rhythm. No murmurs, rubs, or gallops. No JVD or leggett tid bruits. Abdomen. Soft and nontender. Normal bowel tones. No palpable masses or organomegaly. Extremities. No clubbing, cyanosis, or edema. Good peripheral pulses and brisk capillary refill in the lower extremities. Right shoulder has minimal tenderness to palpation around the AC joint. No erythema, edema, warmth, or effusion. Good range of motion but this does produce mild to moderate pain. Neuro. Alert and oriented to person, place, and situation. Speech is fluent. No tremor. Psych. Calm and cooperative with appropriate affect. Social and interactive. Admission Data Twelve lead EKG is interpreted by myself as showing normal sinus rhythm with IVCD. Poor R- wave progression. Ventricular rate 61 beats per minute. Not significantly changed per prio r tracing done 12/25/2016 at [facility] Exercise stress test with nuclear medicine imaging on 05/29/2016 at [facility] is read as showing low risk for significant coronary artery disease Echocardiogram at [facility] on 03/07/2016 showed grade 1 diastolic dysfunction and no other significant abnormalities Event monitor at [facility] on 03/07/2016 showed no significant arrhythmias Basic metabolic panel is remarkable for glucose 135. Pro BNP 41. Troponin T less than 0.01. CBC is unremarkable. Two-view chest x-ray is interpreted by myself as showing no infiltrates, masses, edema, eff usions, cardiomegaly, pneumothorax, or widened mediastinum. Hospital Course: The patient was admitted to telemetry and showed no significant hemodynamic abnormalities a nd no significant arrhythmias. He had no recurrence of his chest or abdominal pain. Serial troponins remained normal. He has continued to have some mild pain of his right shoulder w hich I suspect is musculoskeletal in origin. Etiology of his chest and abdominal discomfort remains unclear but was not likely secondary to any potentially life-threatening or debilit ating etiology. He is advised to follow up closely with his PCP. Discharge Examination: General. Well-developed, well-nourished appearing male in no apparent acute distress. Vitals. Temperature 36.4degrees. Pulse 65. Respiratory rate 16. Blood pressure 131/73. O 2 sat 100 percent on room air. Chest. Clear to auscultation and percussion. Respirations are unlabored. Cardiovascular. Regular in rate and rhythm. No murmurs, rubs, or gallops. Neuro. Alert and oriented to person, place, and situation. Speech is fluent. Gait is nor mal. Medication List CONTINUE taking these medications aspirin chewable 81 mg Chew Chew and swallow 81 mg once daily. dilTIAZem 90 mg Tab Commonly known as: CARDIZEM Take 90 mg by mouth three times daily. imipramine 25 mg Tab Commonly known as: TOFRANIL Take 25 mg by mouth once daily at bedtime. lisinopril 20 mg Tab Commonly known as: PRINIVIL Take 20 mg by mouth two times daily. melatonin 2.5 mg Chew Chew and swallow once daily at bedtime. multivitamin Tab Commonly known as: THERA VITAMIN Take 1 tablet by mouth twice weekly (on Sunday and Sunday). nitroglycerin 0.4 mg Subl Commonly known as: NITROSTAT Place 0.4 mg under tongue every five minutes as needed for chest pain. Place under tongue a nd allow to dissolve. Administer every 5 minutes, max of 3 doses in 15 minutes. Indication s: took two doses this am simvastatin 40 mg Tab Commonly known as: ZOCOR Take 40 mg by mouth once daily. Diet Regular Regular diet- There are no restrictions to your diet. You may eat or drink whatever you pr efer, though healthy food choices are recommended. Activity No activity restrictions Destination/Disposition Destination/Disposition: Home Condition on Discharge Good Schedule the following appointment(s) when you get home ROSANGELA DUMAS MD. Call on 11/06/2017. Specialty: Internal Medicine Why: Hospital follow up. Dr. Dumas's office will call you to schedule an appointment. Ta ke your prescription medications, sest-keu-qtdghqa medications and dietary supplements with you to your appointment. Contact information [facility] [address] [place] [id number] Other Discharge Orders and Instructions Time spent in preparation of this discharge was greater than 30 minutes. GÓMEZ NOBLE MD Hospital Medicine Service [facility] Please send copy to Rosangela Dumas MDElectronically signed by Gómez Noble MD at 10/27 1:23 PM PDTdocumented in this encounter Discharge Instructions Instructions Brian JewelsGILBERT de luna - 11/06/2017Formatting of this note might be different fro m the original. Chest Pain: Care Instructions Your Care Instructions There are many things that can cause chest pain. Some are not serious and will get better o n their own in a few days. But some kinds of chest pain need more testing and treatment. You r doctor may have recommended a follow-up visit in the next 8 to 12 hours. If you are not ge tting better, you may need more tests or treatment. Even though your doctor has released you, you still need to watch for any problems. The doc tor carefully checked you, but sometimes problems can develop later. If you have new symptom s or if your symptoms do not get better, get medical care right away. If you have worse or different chest pain or pressure that lasts more than 5 minutes or you passed out (lost consciousness), call 911 or seek other emergency help right away. A medical visit is only one step in your treatment. Even if you feel better, you still need to do what your doctor recommends, such as going to all suggested follow-up appointments an d taking medicines exactly as directed. This will help you recover and help prevent future p roblems. How can you care for yourself at home? Rest until you feel better. Take your medicine exactly as prescribed. Call your doctor if you think you are having a problem with your medicine. Do not drive after taking a prescription pain medicine. When should you call for help? Call 911 if: You passed out (lost consciousness). You have severe difficulty breathing. You have symptoms of a heart attack. These may include: Chest pain or pressure, or a strange feeling in your chest. Sweating. Shortness of breath. Nausea or vomiting. Pain, pressure, or a strange feeling in your back, neck, jaw, or upper belly or in one o r both shoulders or arms. Lightheadedness or sudden weakness. A fast or irregular heartbeat. After you call 911, the benzene operator may tell you to chew 1 adult-strength or 2 to 4 low-dose a spirin. Wait for an ambulance. Do not try to drive yourself. Call your doctor today if: You have any trouble breathing. Your chest pain gets worse. You are dizzy or lightheaded, or you feel like you may faint. You are not getting better as expected. You are having new or different chest pain. Where can you learn more? To learn more about "Chest Pain: Care Instructions", log into your [employer] account at [email or web address]: [email or web address]. You can enter A120 in the "[employer]" search box. Not on [employer]? Review the [employer] section of your After Visit Summary for directions on ann-marie ashraf to sign up. Current as of: January 15, 2017 Content Version: 11.7 6254-4874 [employer]. Care instructions adapted under license by [facility]. If you have questions about a medical condition or this instr uction, always ask your healthcare professional. [employer] disclaims any maximino anty or liability for your use of this information. documented in this encounter Medications at Time of Discharge + + + +---------+--------+ + | Medication | Sig | Dispensed | Refills | Start | End Date | | | | | | Date | | + + + +---------+--------+ + | aspirin chewable | Chew and swallow 81 | | 0 | | | | 81 mg oral | mg once daily. | | | | | | tablet,chewable | | | | | | + + + +---------+--------+ + | dilTIAZem 90 mg | Take 90 mg by mouth | | 0 | | | | oral tablet | three times daily. | | | | | + + + +---------+--------+ + | imipramine 25 mg | Take 25 mg by mouth | | 0 | | | | oral tablet | once daily at | | | | | | | bedtime. | | | | | + + + +---------+--------+ + | lisinopril 20 mg | Take 20 mg by mouth | | 0 | | | | oral tablet | two times daily. | | | | | + + + +---------+--------+ + | melatonin 2.5 mg | Chew and swallow | | 0 | | | | oral tablet,chewable | once daily at | | | | | | | bedtime. | | | | | + + + +---------+--------+ + | multivitamin oral | Take 1 tablet by | | 0 | | | | tablet | mouth twice weekly | | | | | | | (on Sunday and | | | | | | | Sunday). | | | | | + + + +---------+--------+ + | nitroglycerin 0.4 | Place 0.4 mg under | | 0 | | | | mg sublingual | tongue every five | | | | | | tablet, | minutes as needed | | | | | | sublingualIndication | for chest pain. | | | | | | s: took two doses | Place under tongue | | | | | | this [...] this am | | | | | + + + +---------+--------+ + | simvastatin 40 mg | Take 40 mg by mouth | | 0 | | | | oral tablet | once daily. | | | | | + + + +---------+--------+ + documented as of this encounter Progress Tamera Andrade RN - 11/05/2017 7:06 PM Denny was admitted to unit due to chest pain . Patient stated he believes his chest pain occurred due to possible not taking his evening medications. He has not had any chest pain since he has been on the unit. He has ambulated i n the conley several times throughout the day. Janette is A/O and will call when he needs anythi ng. areinaFlako, Ivette rmD - 11/05/2017 8:36 AM PDTPharmacy Medication Reconciliation Medication Reconciliation review performed by: Flako Perla Home medications updated by: Flako Perla Source of this list is: [facility] with patient corroboration Medication supervised by: Patient Reliablitiy of Medication List: Great - pt is alert/oriented and manages medications indepe ndently. Below are any changes made from the original Home Meds list: Removed Medication: and why removed Cyclobenzaprine 10 mg - pt reports not taking it anymore Added Medication: and when started Melatonin 2.5 mg - one at bedtime Changed Medication: when and why changed None Pending steps in medication verification: None Pt reports taking all his daily meds this morning, including his prn NTG. Otherwise pt repo rts no additional changes other than the ones listed above. Thank you for the consult, Flako Perla PharmD documented in this en counter Plan of Treatment Not on filedocumented as of this encounter Procedures + +--------+ + + + | Procedure Name | Priori | Date/Time | Associated Diagnosis | Comments | | | ty | | | | + +--------+ + + + | 12 LEAD ECG | Routin | 11/06/2017 | | Results for this | | | e | 4:37 AM | | procedure are in the | | | | PDT | | results section. | + +--------+ + + + | TROPONIN T | Urgent | 11/05/2017 | | Results for this | | | | 7:25 PM | | procedure are in the | | | | PDT | | results section. | + +--------+ + + + | TROPONIN T | Urgent | 11/05/2017 | | Results for this | | | | 1:09 PM | | procedure are in the | | | | PDT | | results section. | + +--------+ + + + | X-RAY CHEST 2 VIEW | Urgent | 11/05/2017 | | Results for this | | | | 7:30 AM | | procedure are in the | | | | PDT | | results section. | + +--------+ + + + | NT-PRO BNP | Urgent | 11/05/2017 | | Results for this | | | | 7:00 AM | | procedure are in the | | | | PDT | | results section. | + +--------+ + + + | TROPONIN T | Urgent | 11/05/2017 | | Results for this | | | | 7:00 AM | | procedure are in the | | | | PDT | | results section. | + +--------+ + + + | CBC W/DIFF, REFLEX | Urgent | 11/05/2017 | | Results for this | | | | 7:00 AM | | procedure are in the | | | | PDT | | results section. | + +--------+ + + + | CBC AND AUTO DIFF | Urgent | 11/05/2017 | | Results for this | | | | 7:00 AM | | procedure are in the | | | | PDT | | results section. | + +--------+ + + + | RAINBOW HOLD TUBE - | Urgent | 11/05/2017 | | | | BLUE TOP | | 7:00 AM | | | | | | PDT | | | + +--------+ + + + | BASIC METABOLIC SET | Urgent | 11/05/2017 | | Results for this | | (NA, K, CL, TCO2, | | 7:00 AM | | procedure are in the | | BUN, CR, GLU, CA) | | PDT | | results section. | + +--------+ + + + | 12 LEAD ECG | Routin | 11/05/2017 | | Results for this | | | e | 6:54 AM | | procedure are in the | | | | PDT | | results section. | + +--------+ + + + | ED INFORMATION | Routin | 11/05/2017 | | Results for this | | EXCHANGE | e | 6:48 AM | | procedure are in the | | | | PDT | | results section. | + +--------+ + + + documented in this encounter Results 12 LEAD ECG (11/06/2017 4:37 AM PDT) + + + + + + | Component | Value | Ref Range | Performed | Pathologist | | | | | At | Signature | + + + + + + | VENTRICULAR | 61 | bpm | [facility] | | | RATE | | | CARDIOLOGY | | + + + + + + | ATRIAL RATE | 61 | ms | [facility] | | | | | | CARDIOLOGY | | + + + + + + | P-R | 184 | ms | [facility] | | | INTERVAL | | | CARDIOLOGY | | + + + + + + | P AXIS | -7 | deg | [facility] | | | | | | CARDIOLOGY | | + + + + + + | QRS | 129 | ms | [facility] | | | DURATION | | | CARDIOLOGY | | + + + + + + | QT | 453 | ms | [facility] | | | | | | CARDIOLOGY | | + + + + + + | QTCB | 457 | ms | [facility] | | | | | | CARDIOLOGY | | + + + + + + | R AXIS | 268 | deg | [facility] | | | | | | CARDIOLOGY | | + + + + + + | T AXIS | 13 | deg | [facility] | | | | | | CARDIOLOGY | | + + + + + + | ECG | Sinus rhythm | | [facility] | | | IMPRESSION | | | CARDIOLOGY | | + + + + + + | ECG | Left bundle branch block | | [facility] | | | IMPRESSION | | | CARDIOLOGY | | + + + + + + | ECG | Comp with prior no sig | | [facility] | | | IMPRESSION | change- ABNORMAL ECG - | | CARDIOLOGY | | + + + + + + | ECG | Electronically signed | | [facility] | | | IMPRESSION | by: FRANCHESCA CEJA | | CARDIOLOGY | | | | 11-06-2017 21:42:46 | | | | + + + + + + + + | Specimen | + + | | + + + + + | Narrative | Performed At | + + + | | | + + + + +---------+ + + | Performing | Address | City/State/Zipcode | Phone Number | | Organization | | | | + +---------+ + + | [facility] | | | | + +---------+ + + TROPONIN T (11/05/2017 7:25 PM PDT) + +-------+ + + + | Component | Value | Ref Range | Performed | Pathologist | | | | | At | Signature | + +-------+ + + + | TROPONIN T | <0.01 | <0.04 ng/mL | [facility] | | | | | | A MEDICAL | | | | | | CENTER | | + +-------+ + + + | COMMENT | | | [facility] | | | (HEMO) | | | A MEDICAL | | | | | | CENTER | | + +-------+ + + + | COMMENT | | | [facility] | | | (ICTERUS) | | | A MEDICAL | | | | | | CENTER | | + +-------+ + + + | COMMENT | | | [facility] | | | ([place]) | | | A MEDICAL | | | | | | CENTER | | + +-------+ + + + + + | Specimen | + + | Blood - Blood | | (substance) | + + + + + | Narrative | Performed At | + + + | Values less than 0.04 are normal. Values greater than 0.06 are | [facility] | | suggestive of AMI. | MEDICAL CENTER | + + + + + + + + | Performing | Address | City/State/Zipcode | Phone Number | | Organization | | | | + + + + + | [facility] | [address] | [place] [address] | [phone] | | MEDICAL CENTER | [address] | | | + + + + + TROPONIN T (11/05/2017 1:09 PM PDT) + +-------+ + + + | Component | Value | Ref Range | Performed | Pathologist | | | | | At | Signature | + +-------+ + + + | TROPONIN T | <0.01 | <0.04 ng/mL | [facility] | | | | | | A MEDICAL | | | | | | CENTER | | + +-------+ + + + | COMMENT | | | [facility] | | | (HEMO) | | | A MEDICAL | | | | | | CENTER | | + +-------+ + + + | COMMENT | | | [facility] | | | (ICTERUS) | | | A MEDICAL | | | | | | CENTER | | + +-------+ + + + | COMMENT | | | [facility] | | | ([place]) | | | A MEDICAL | | | | | | CENTER | | + +-------+ + + + + + | Specimen | + + | Blood - Blood | | (substance) | + + + + + | Narrative | Performed At | + + + | Values less than 0.04 are normal. Values greater than 0.06 are | [facility] | | suggestive of AMI. | MEDICAL CENTER | + + + + + + + + | Performing | Address | City/State/Zipcode | Phone Number | | Organization | | | | + + + + + | [facility] | [address] | [place] [address] | [phone] | | [facility] | [address] | | | + + + + + X-RAY CHEST 2 VIEW (11/05/2017 7:30 AM PDT) + + | Specimen | + + | | + + + + + | Narrative | Performed At | + + + | [address] | [facility] | | [place] [address] | DEPARTMENT | | [phone] Name: JANETTE HURT Phys: | RADIOLOGY | | SILVINO ESPITIA : 1950 Sex: M | | | CSN: [id number] MR# [id number] Exam Date: | | | 11/05/2017 EXAM: X-RAY CHEST 2 VIEW [id number] CLINICAL HISTORY: | | | Shortness of breath. COMPARISON: None available. TECHNIQUE: | | | Frontal and lateral chest radiographs. FINDINGS: Lungs: No | | | focal infiltrate, pleural effusion, or pneumothorax. Heart: | | | Normal. Bones: Normal. IMPRESSION: No acute disease. | | | REPORT SIGNED IN OTHER VENDOR SYSTEM 11/05/2017 Reported by: | | | Javier Knight MD Electronically signed by: Javier Knight MD | | | Transcribed Date/Time: 11/05/2017 08:03 Planer Setup Operator: FLUENCY | | | | | + + + + + | Procedure Note | + + | Interface, Radiology Results - 11/05/2017 8:07 AM PDT [address] | | [address] [place] [address] | | Name: JANETTE HURT Phys: NUPURSILVINO Garcia : 1950 Sex: M | | CSN: [id number] MR# [id number] Exam Date: 11/05/2017 EXAM:X-RAY CHEST 2 VIEW | | [id number] CLINICAL HISTORY:Shortness of breath. COMPARISON:None available. TECHNIQUE:Frontal | | and lateral chest radiographs. FINDINGS:Lungs: No focal infiltrate, pleural effusion, | | or pneumothorax. Heart: Normal. Bones: Normal. IMPRESSION:No acute disease. REPORT | | SIGNED IN OTHER VENDOR SYSTEM 11/05/2017 Reported by: Javier Knight MD Electronically | | signed by: Javier Knight MD Transcribed Date/Time: 11/05/2017 08:03Transcriptionist: | | FLUENCY | | Exam Date: 11/05/2017 | | | |EXAM: | |X-RAY CHEST 2 VIEW [id number] | | | |CLINICAL HISTORY: | |Shortness of breath. | | | |COMPARISON: | |None available. | | | |TECHNIQUE: | |Frontal and lateral chest radiographs. | | | |FINDINGS: | |Lungs: No focal infiltrate, pleural effusion, or pneumothorax. | | | |Heart: Normal. | | | |Bones: Normal. | | | |IMPRESSION: | |No acute disease. | | | | | | REPORT SIGNED IN OTHER VENDOR SYSTEM 11/05/2017 | |Reported by: Javier Knight MD | | | |Electronically signed by: Javier Knight MD | | | |Transcribed Date/Time: 11/05/2017 08:03 | |Planer Setup Operator: FLUENCY | | | | | | | + + + +---------+ + + | Performing | Address | City/State/Zipcode | Phone Number | | Organization | | | | + +---------+ + + | [facility] | | | | | RADIOLOGY | | | | + +---------+ + + RAINBOW HOLD TUBE - BLUE TOP (11/05/2017 7:00 AM PDT) + + | Specimen | + + | Blood - Blood | | (substance) | + + + + + + + | Performing | Address | City/State/Zipcode | Phone Number | | Organization | | | | + + + + + | [facility] | And | [place] [address] | [phone] | | MEDICAL CENTER | [address] | | | + + + + + CBC AND AUTO DIFF (11/05/2017 7:00 AM PDT) + +-------+ + + + | Component | Value | Ref Range | Performed | Pathologist | | | | | At | Signature | + +-------+ + + + | WBC COUNT | 7.4 | 3.5 - 10.8 K/cu | [facility] | | | | | mm | A MEDICAL | | | | | | CENTER | | + +-------+ + + + | RED CELL | 4.76 | 4.50 - 6.00 | [facility] | | | COUNT | | M/cu mm | A MEDICAL | | | | | | CENTER | | + +-------+ + + + | HEMOGLOBIN | 15.3 | 13.5 - 17.5 | [facility] | | | | | g/dL | A MEDICAL | | | | | | CENTER | | + +-------+ + + + | HEMATOCRIT | 43.1 | 41.0 - 53.0 % | [facility] | | | | | | A MEDICAL | | | | | | CENTER | | + +-------+ + + + | MCV | 90.5 | 80.0 - 96.0 fL | [facility] | | | | | | A MEDICAL | | | | | | CENTER | | + +-------+ + + + | MCH | 32.1 | 28.0 - 34.7 pg | [facility] | | | | | | A MEDICAL | | | | | | CENTER | | + +-------+ + + + | MCHC | 35.5 | 33.0 - 35.5 | [facility] | | | | | g/dL | A MEDICAL | | | | | | CENTER | | + +-------+ + + + | RDW | 13.0 | 11.5 - 15.0 % | [facility] | | | | | | A MEDICAL | | | | | | CENTER | | + +-------+ + + + | PLATELET | 292 | 150 - 400 K/cu | [facility] | | | COUNT | | mm | A MEDICAL | | | | | | CENTER | | + +-------+ + + + | MPV | 7.5 | 7.5 - 11.2 fL | [facility] | | | | | | A MEDICAL | | | | | | CENTER | | + +-------+ + + + | NEUTROPHIL | 61.9 | 50.0 - 70.0 % | [facility] | | | % | | | A MEDICAL | | | | | | CENTER | | + +-------+ + + + | LYMPHOCYTE | 27.6 | 18.0 - 42.0 % | [facility] | | | % | | | A MEDICAL | | | | | | CENTER | | + +-------+ + + + | MONOCYTE % | 7.3 | 3.5 - 9.0 % | [facility] | | | | | | A MEDICAL | | | | | | CENTER | | + +-------+ + + + | EOS % | 2.3 | 1.0 - 3.0 % | [facility] | | | | | | A MEDICAL | | | | | | CENTER | | + +-------+ + + + | BASO % | 0.9 | 0.0 - 2.0 % | [facility] | | | | | | A MEDICAL | | | | | | CENTER | | + +-------+ + + + | NEUTROPHIL | 4.60 | 1.80 - 7.70 | [facility] | | | # | | K/cu mm | A MEDICAL | | | | | | CENTER | | + +-------+ + + + | LYMPHOCYTE | 2.00 | 1.00 - 4.80 | [facility] | | | # | | K/cu mm | A MEDICAL | | | | | | CENTER | | + +-------+ + + + | MONOCYTE # | 0.50 | 0.10 - 0.90 | [facility] | | | | | K/cu mm | A MEDICAL | | | | | | CENTER | | + +-------+ + + + | EOS # | 0.20 | 0.00 - 0.50 | [facility] | | | | | K/cu mm | A MEDICAL | | | | | | CENTER | | + +-------+ + + + | BASO # | 0.10 | 0.00 - 0.10 | [facility] | | | | | K/cu mm | A MEDICAL | | | | | | CENTER | | + +-------+ + + + + + | Specimen | + + | Blood - Blood | | (substance) | + + + + + + + | Performing | Address | City/State/Zipcode | Phone Number | | Organization | | | | + + + + + | [facility] | And | [place] [address] | [phone] | | MEDICAL CENTER | Streets | | | + + + + + NT-PRO BNP (11/05/2017 7:00 AM PDT) + +-------+ + + + | Component | Value | Ref Range | Performed | Pathologist | | | | | At | Signature | + +-------+ + + + | NT-PRO BNP | 41 | <126 pg/mL | [facility] | | | | | | A MEDICAL | | | | | | CENTER | | + +-------+ + + + + + | Specimen | + + | Blood - Blood | | (substance) | + + + + + | Narrative | Performed At | + + + | RULE OUT (FDA approved cutpoints for NT-pro-BNP) Age | [facility] | | NT-proBNP level 0-75 yr <125 pg/mL >75 yr | [facility] | | <450 pg/mL RULE IN Age NT-proBNP level | | | <50 yr 450 pg/mL 50-75 yr 900 pg/mL | | | >75 yr 1800 pg/mL | | + + + + + + + + | Performing | Address | City/State/Zipcode | Phone Number | | Organization | | | | + + + + + | [facility] | [address] | [place] [address] | [phone] | | MEDICAL CENTER | Streets | | | + + + + + TROPONIN T (11/05/2017 7:00 AM PDT) + +-------+ + + + | Component | Value | Ref Range | Performed | Pathologist | | | | | At | Signature | + +-------+ + + + | TROPONIN T | <0.01 | <0.04 ng/mL | [facility] | | | | | | A MEDICAL | | | | | | CENTER | | + +-------+ + + + | COMMENT | | | [facility] | | | (HEMO) | | | A MEDICAL | | | | | | CENTER | | + +-------+ + + + | COMMENT | | | [facility] | | | (ICTERUS) | | | A MEDICAL | | | | | | CENTER | | + +-------+ + + + | COMMENT | | | [facility] | | | (LIPEMIA) | | | A MEDICAL | | | | | | CENTER | | + +-------+ + + + + + | Specimen | + + | Blood - Blood | | (substance) | + + + + + | Narrative | Performed At | + + + | Values less than 0.04 are normal. Values greater than 0.06 are | [facility] | | suggestive of AMI. | MEDICAL CENTER | + + + + + + + + | Performing | Address | City/State/Zipcode | Phone Number | | Organization | | | | + + + + + | [facility] | And | [place] [address] | [phone] | | MEDICAL CENTER | Streets | | | + + + + + BASIC METABOLIC SET (NA, K, CL, TCO2, BUN, CR, GLU, CA) (11/05/2017 7:00 AM PDT) + +---------+ + + + | Component | Value | Ref Range | Performed | Pathologist | | | | | At | Signature | + +---------+ + + + | GLUCOSE, | 135 (H) | 70 - 105 mg/dL | [facility] | | | PLASMA | | | A MEDICAL | | | (LAB) | | | CENTER | | + +---------+ + + + | BUN, PLASMA | 18 | 6 - 26 mg/dL | [facility] | | | (LAB) | | | A MEDICAL | | | | | | CENTER | | + +---------+ + + + | CREATININE, | 1.0 | 0.9 - 1.3 mg/dL | [facility] | | | PLASMA | | | A MEDICAL | | | | | | CENTER | | + +---------+ + + + | SODIUM, | 141 | 137 - 146 | [facility] | | | PLASMA | | mmol/L | A MEDICAL | | | (LAB) | | | CENTER | | + +---------+ + + + | POTASSIUM, | 4.3 | 3.4 - 5.3 | [facility] | | | PLASMA | | mmol/L | A MEDICAL | | | (LAB) | | | CENTER | | + +---------+ + + + | CHLORIDE, | 102 | 96 - 106 mmol/L | [facility] | | | PLASMA | | | A MEDICAL | | | (LAB) | | | CENTER | | + +---------+ + + + | TOTAL CO2, | 25 | 18 - 30 mmol/L | [facility] | | | PLASMA | | | A MEDICAL | | | (LAB) | | | CENTER | | + +---------+ + + + | CALCIUM, | 8.9 | 8.5 - 10.8 | [facility] | | | PLASMA | | mg/dL | A MEDICAL | | | (LAB) | | | CENTER | | + +---------+ + + + | BUN/CREATIN | 18 | 6 - 20 | [facility] | | | INE RATIO | | | A MEDICAL | | | | | | CENTER | | + +---------+ + + + | EGFR | >60 | >60 mL/min | [facility] | | | - | | | A MEDICAL | | | TANZANIAN | | | CENTER | | + +---------+ + + + | EGFR NON | >60 | >60 mL/min | [facility] | | | -LUIS ENRIQUE | | | A MEDICAL | | | RICAN | | | CENTER | | + +---------+ + + + | ANION GAP | 14 | 12 - 20 mmol/L | [facility] | | | | | | A MEDICAL | | | | | | CENTER | | + +---------+ + + + + + | Specimen | + + | Blood - Blood | | (substance) | + + + + + + + | Performing | Address | City/State/Zipcode | Phone Number | | Organization | | | | + + + + + | [facility] | And | [place] [address] | [phone] | | [facility] | Streets | | | + + + + + 12 LEAD ECG (11/05/2017 6:54 AM PDT) + + + + + + | Component | Value | Ref Range | Performed | Pathologist | | | | | At | Signature | + + + + + + | VENTRICULAR | 61 | bpm | [facility] | | | RATE | | | CARDIOLOGY | | + + + + + + | ATRIAL RATE | 61 | ms | [facility] | | | | | | [facility]ARDIOLOG[facility] | | + + + + + + | P-R | 187 | ms | [facility] | | | INTERVAL | | | CARDIOLOGY | | + + + + + + | P AXIS | 37 | deg | [facility] | | | | | | CARDIOLOG[facility] | | + + + + + + | QRS | 132 | ms | [facility] | | | DURATION | | | CARDIOLOGY | | + + + + + + | QT | 457 | ms | [facility] | | | | | | CARDIOLOGY | | + + + + + + | QTCB | 461 | ms | [facility] | | | | | | CARDIOLOGY | | + + + + + + | R AXIS | -88 | deg | [facility] | | | | | | CARDIOLOG[facility] | | + + + + + + | T AXIS | 46 | deg | [facility] | | | | | | CARDIOLOG[facility] | | + + + + + + | ECG | Sinus rhythm | | [facility] | | | IMPRESSION | | | CARDIOLOGY | | + + + + + + | ECG | Nonspecific | | [facility] | | | IMPRESSION | intraventricular | | CARDIOLOGY | | | | conduction delay | | | | + + + + + + | ECG | Possible anteroseptal | | [facility] | | | IMPRESSION | myocardial infarction | | CARDIOLOGY | | + + + + + + | ECG | No prior EKG for | | [facility] | | | IMPRESSION | comparison- ABNORMAL ECG | | CARDIOLOGY | | | | - | | | | + + + + + + | ECG | Electronically signed | | [facility] | | | IMPRESSION | by: TAMMY BRYANT | | CARDIOLOGY | | | | 11-05-2017 22:09:11 | | | | + + + + + + + + | Specimen | + + | | + + + + + | Narrative | Performed At | + + + | | | + + + + +---------+ + + | Performing | Address | City/State/Zipcode | Phone Number | | Organization | | | | + +---------+ + + | [facility] | | | | + +---------+ + + ED INFORMATION EXCHANGE (11/05/2017 6:48 AM PDT) + + + + + + | Component | Value | Ref Range | Performed | Pathologist | | | | | At | Signature | + + + + + + | [facility] | [id number] | | [facility] | | | | [id number] | | MEDICAL | | | | | | TECHNOLOGIE | | | | | | S | | + + + + + + + + | Specimen | + + | | + + + + + | Narrative | Performed At | + + + | Prakash has no Care Guidelines for this patient. ED/UCC VISIT | [facility] | | TRACKING (3 MO.) Visit Date Location | MEDICAL | | City ST Type Dx/Complaint | TECHNOLOGIES | | -------- | | | ------- ---- 11/05/2017 06:45 | | | [facility] [place] [place] [facility] | | | [id number]. CP ED VISIT COUNT (12 MO.) Visits Location | | | ------ --------- 1 [facility] 2 | | | [facility] Total Note: Visits indicate | | | total known visits. | | | | | | --- CARE PROVIDERS Name | | | Phone | | | Type Service Dates ---- | | | | | | ----- ---- | | | Silvino Roque MD | | | Unknown | | | Primary Care Unknown - Current or_praxis | | | | | | Unknown Case or Play Leader Unknown - | | | Current Farideh ROQUE at [facility] | | | Unknown Other | | | Unknown - Current | | + + + + + + + + | Performing | Address | City/State/Zipcode | Phone Number | | Organization | | | | + + + + + | [facility] | [address], | [place], [place] | [phone] | | TECHNOLOGIES | [address] | [address] | | + + + + + documented in this encounter Visit Diagnoses + + | Diagnosis | + + | Chest tightness - Primary Other chest pain | + + | Chest pain at rest Chest pain, unspecified | + + documented in this encounter Administered Medications + +--------+ +-------+------+------+ | Medication Order | MAR | Action | Dose | Rate | Site | | | Action | Date | | | | + +--------+ +-------+------+------+ | aspirin EC tablet 81 mg 81 mg, | Given | 11/07/19 | 81 mg | | | | oral, ONCE, 1 dose, 11/06/17 | | 18 8:23 | | | | | at 0815 | | AM PDT | | | | + +--------+ +-------+------+------+ +---+---+ | | | +---+---+ + +-------+ +-------+---+---+ | atorvastatin (LIPITOR) tablet | Given | 11/07/19 | 20 mg | | | | 20 mg 20 mg, oral, DAILY, First | | 18 8:20 | | | | | dose on Sun11/06/17 at 0900, | | AM PDT | | | | | Until Discontinued | | | | | | + +-------+ +-------+---+---+ +---+---+ | | | +---+---+ + +-------+ +-------+---+---+ | dilTIAZem (CARDIZEM) tablet 90 | Given | 11/06/19 | 90 mg | | | | mg 90 mg, oral, EVERY 8 HOURS, | | 18 12:49 | | | | | First dose (after last | | PM PDT | | | | | modification) on Sun11/05/17 at | | | | | | | 1300, Until Discontinued | | | | | | + +-------+ +-------+---+---+ +---+---+ | | | +---+---+ + +-------+ +-------+---+---+ | dilTIAZem (CARDIZEM) tablet 90 | Given | 11/07/19 | 90 mg | | | | mg 90 mg, oral, THREE TIMES | | 18 6:24 | | | | | DAILY, First dose on Sun11/05/17 | | AM PDT | | | | | at 2100, Until Discontinued | | | | | | + +-------+ +-------+---+---+ +-------+ +-------+---+---+ | Given | 11/06/19 | 90 mg | | | | | 18 8:57 | | | | | | PM PDT | | | | +-------+ +-------+---+---+ +---+---+ | | | +---+---+ + +-------+ +-------+---+---+ | imipramine (TOFRANIL) tablet 25 | Given | 11/06/19 | 25 mg | | | | mg 25 mg, oral, EVERY EVENING, | | 18 8:57 | | | | | First dose on Sun11/05/17 at | | PM PDT | | | | | 2100, Until Discontinued | | | | | | + +-------+ +-------+---+---+ +---+---+ | | | +---+---+ + +-------+ +-------+---+---+ | lisinopril (PRINIVIL) tablet 20 | Given | 11/07/19 | 20 mg | | | | mg 20 mg, oral, TWICE DAILY, | | 18 8:20 | | | | | First dose on Sun11/05/17 at | | AM PDT | | | | | 2100, Until Discontinued | | | | | | + +-------+ +-------+---+---+ +-------+ +-------+---+---+ | Given | 11/06/19 | 20 mg | | | | | 18 8:56 | | | | | | PM PDT | | | | +-------+ +-------+---+---+ +---+---+ | | | +---+---+ + +-------+ +------+---+---+ | melatonin tablet TbER 3 mg 3 | Given | 11/06/19 | 3 mg | | | | mg, oral, EVERY EVENING, First | | 18 8:59 | | | | | dose on Sun11/05/17 at 2100, | | PM PDT | | | | | Until Discontinued | | | | | | + +-------+ +------+---+---+ +---+---+ | | | +---+---+ + +-------+ +-------+---+---+ | NaCl flush 2-10 mL 2-10 mL, | Given | 11/06/19 | 10 mL | | | | intravenous, TWICE DAILY, First | | 18 8:59 | | | | | dose on 11/05/17 at 2100, | | PM PDT | | | | | Until Discontinued | | | | | | + +-------+ +-------+---+---+ +---+---+ | | | +---+---+ documented in this encounter
--- OUTSIDE RECORDS SUMMARY | ~2019-01-31 | XMS | Encounter Summary ---
Demographics + + + | Address | [address] | | | [place] [address] | + + + | Home Phone | | + + + | Preferred Language | Unknown | + + + | Marital Status | | + + + | Gnosticist Affiliation | 1041 | + + + | Race | Unknown | + + + | Ethnic Group | Unknown | + + + Author + + + | Author | [facility] | | | and [place] | + + + | Organization | [facility] | | | and [...] | [place] | | | | | [address] | | + + + + + Care Team Providers + +------+ + | Care Area Counselor Name | Role | Phone | + +------+ + | Manjit Roque MD | PCP | | + +------+ + Encounter Details +--------+ + + + + | Date | Type | Department | Care Team | Description | +--------+ + + + + | 12/25/ | Hospital | [facility] | Ema Martin MD | Spontaneous | | 2017 - | Encounter | [facility] | [address] | pneumothorax | | | | CARE FLOOR [address] | [place] [address] | | | 12/29/ | | [address] | [phone] | | | 2017 | | [place], [place] | | | | | | [address] | | | | | | [phone] | | | +--------+ + + + [...] 12/29/16946 Date of Service: 12/29/16944 Status: Signed Wall Washer: Jackeline Morris MD (Physician) [facility] Service: Hospitalist Physician Discharge Summary Pt: Janette [...] right lung, chronic COPD with history of 32-iptr-ftzv smoking, quit 1-1/2 year ag o, history [...] if needed. Follow-Up: Roxanne Hamilton MD [address] [facility] [address] Go on 01/10/2017 Post-op follow-up, For wound re-check, For suture removal; please get a chest x-ray before coming to your appointment - one has been ordered for you. Manjit Roque MD [address] [facility] [address] [place] [address] In 1 week Discharge took more than 35 minutes, to include final examination, discussion of admission, and preparation of prescriptions, instructions for ongoing care, follow up and dictation of summary. Signed: JACKELINE MORRIS MD 12/29/2016 9:45 AM Dictation software, Enclarity, used which may contain error for similar [...] + + + +---------+ + + | [place]-[facility] Fatty | CAPS one by mouth 3 [...] 1216 Date of Service: 12/29/161125 Status: Signed Wall Washer: Mulu Mera RN (Registered Nurse) No c/o [...] Progress Notes by KEKE Max at 12/28/16 9790 Author: KEKE Max Service: Cardiac, Thoracic, and Vascular Surgery [place] Type: Advanced Registered Nurse Practitioner Filed: 12/28/16 7679 Date of Service: 12/28/16 1328 Status: Attested Wall Washer: KEKE Max (Advanced Registered Nurse Practitioner) Cosigner: Roxanne Hamilton MD at 12/29/16 0704 Attestation signed by Roxanne Hamilton MD at 12/29/16 0704 I have examined Janette Hurt, reviewed the notes, assessments, and/or procedures performed by KEKE Menchaca, I concur with her documentation of Janette Hurt. [facility] Cardiothoracic Surgery Progress Note Date/Time:12/28/2016 1:29 PM Provider: KEKE Max Hospital Day: LOS: 3 days Surgery/Procedure: R chest tube thoracostomy, 12/26/2016 Room: [address] [place] [address] PROBLEM LIST Principal Problem: Spontaneous pneumothorax Active [...] Date of Service: 12/28/16 1317 Status: Signed Wall Washer: Jackeline Morris MD (Physician) [facility] Service: Hospitalist Progress Note Pt: Janette Hurt AGE/SEX: 66 y.o. male ROOM: [id number]- : 1950 PCP: Manjit Roque ADMIT DATE: 12/25/2016 TODAY'S DATE: 12/28/2016 Hospital Day/Hospital Course: LOS: 3 days 66 years old gentleman with past medical history of gastroesophageal reflux disease, histor y of spontaneous pneumothorax secondary to asymptomatic bleb 50 years ago status post resect ion on the right lung, chronic COPD with history of 79-nlgf-ccvv smoking, quit 1-1/2 year ag o, history [...] right lung, chronic COPD with history of 93-vqec-bstg smoking, quit 1-1/2 year ag o, history [...] MD, FACP 12/28/2016 1:17 PM Dictation software, Enclarity, used which may contain error for similar [...] 0538 Date of Service: 12/28/16535 Status: Signed Wall Washer: Shavon Hernandez RN (Registered Nurse) Patient tolerated CT clamped overnight. Denies any sob. He will go down for Xray at 0645 as scheduled. nel Erickson, COMMISSION ASSOCIATE - 12/27/2016 2:44 PM PDTFormatting of this note might be differ ent from the original. Progress Notes by KEKE Max at 12/27/161443 Author: KEKE Max Service: Cardiac, Thoracic, and Vascular Surgery [place] Type: Advanced Registered Nurse Practitioner Filed: 12/27/161446 Date of Service: 12/27/161443 Status: Attested Wall Washer: KEKE Max (Advanced Registered Nurse Practitioner) Cosigner: [...] Management by Jackie Riggs RN at 12/27/16 607 Author: Jackie Riggs RN Service: (none) Author Type: Registered Nurse Filed: 12/27/161306 Date of Service: 12/27/161306 Status: Signed Wall Washer: Jackie Riggs RN (Registered Nurse) CM attended [...] Date of Service: 12/27/16 1225 Status: Signed Wall Washer: Jackeline Morris MD (Physician) [facility] Service: Hospitalist Progress Note Pt: Janette Hurt AGE/SEX: 66 y.o. male ROOM: [address] [place] [address] : 1950 PCP: Manjit Roque ADMIT DATE: 12/25/2016 TODAY'S DATE: 12/27/2016 Hospital Day/Hospital Course: LOS: 2 days 66 years old gentleman with past medical history of gastroesophageal reflux disease, histor y of spontaneous pneumothorax secondary to asymptomatic bleb 50 years ago status post resect ion on the right lung, chronic COPD with history of 61-iwsc-anmi smoking, quit 1-1/2 year ag o, history [...] right lung, chronic COPD with history of 15-ttia-tjfk smoking, quit 1-1/2 year ag o, history [...] MD, FACP 12/27/2016 12:25 PM Dictation software, Enclarity, used which may contain error for similar [...] 12/26/161252 Date of Service: 12/26/161249 Status: Signed Wall Washer: Jackie Riggs RN (Registered Nurse) 12/26/16 1242 Discharge Planning Evaluation Admitting Diagnosis Spontaneous Pneumothorax Readmission No Living Arrangements Spouse/significant other Support Systems Spouse/significant other Type of Residence Private residence House type House-Split level Independent with ADL's Yes Independent with Mobility Yes Home Care Services No Caregiver after Discharge No Mental Status Oriented Prior functional status Independent Power of Operations Clerk Yes Power of Operations Clerk Name Hoang (son) Anticipated Discharge Plan Post Acute Care Needs None at this time Plan communicated to patient/family Yes Resources Financial concerns No Transportation issues No Patient/Family concerns No Prescription Plan Yes Name of Pharmacy [facility] [place] Previous home health equipment No Vascular access [...] no Anticipated DCP: home w/ Jackie Riggs [phone] Jackeline Turner MD - 12/26/2016 9:08 AM PDT Progress Notes by Jackeline Morris MD at 12/26/16907 Author: Jackeline Morris MD Service: Hospitalist Author Type: Physician Filed: 12/26/16910 Date of Service: 12/26/16907 Status: Signed Wall Washer: Jackeline Morris MD (Physician) [facility] Service: Hospitalist Progress Note Pt: Janette Hurt AGE/SEX: 66 y.o. male ROOM: [address] [place] [address] : 1950 PCP: Manjit Roque ADMIT DATE: 12/25/2016 TODAY'S DATE: 12/26/2016 Hospital Day/Hospital Course: LOS: 1 day 66 years old gentleman with past medical history of gastroesophageal reflux disease, histor y of spontaneous pneumothorax secondary to asymptomatic bleb 50 years ago status post resect ion on the right lung, chronic COPD with history of 45-dwwj-yiub smoking, quit 1-1/2 year ag o, history [...] right lung, chronic COPD with history of 30-buqd-yjfz smoking, quit 1-1/2 year ag o, history [...] MD, FACP 12/26/2016 9:08 AM Dictation software, Enclarity, used which may contain error for similar [...] 12/25/162132 Date of Service: 12/25/162132 Status: Signed Wall Washer: Suha Vinson RPH (Pharmacist) Clinical Pharmacy Note: [...] CHEST 2 VIEW FRONTAL AND | | QPNUEZU48/3/2017 6:52 AM HISTORY:66 years. Male. Evaluate for [...] Conversion - 10/10/2018 2:42 AM PDT JANETTE [id number] yearsXR CHEST | | 1 VIEW12/27/2016 12:00 [...] | | | Basophils | performed at [facility], [address] | [address] | LAB | | | | [address], | | | | | | [place] [address] | | | | + + + [...] Conversion - 10/10/2018 2:42 AM PDT JANETTE [id number] yearsXR CHEST | | 1 VIEW12/26/2016 11:08 [...] Conversion - 10/10/2018 2:42 AM PDT [facility] | | HISTORY:Shortness of [...] CHEST 2 VIEW FRONTAL AND | | POQBLVI7712/26/2016 7:07 AM HISTORY:66 years. Male. Chest pain. [...] | | | Basophils | performed at [facility], [address] | K/uL | LAB | | | | [address], | | | | | | [place] [address] | | | | + + + [...] EXTERNAL | | | | performed at [facility], [address] | | LAB | | | | [address], | | | | | | [place] [address] | | | | + + + [...] EXTERNAL | | | | performed at [facility], [address] | | LAB | | | | [address], | | | | | | [place] [address] | | | | + + + [...] [address], | | | | | | [place] [address] | | | | + + + [...]
--- OUTSIDE RECORDS SUMMARY | ~2019-01-31 | XMS | Encounter Summary ---
Demographics + + + | Address | [address] | | | [place] [address] | + + + | Home Phone | | + + + | Preferred Language | Unknown | + + + | Marital Status | | + + + | Amish Affiliation | 1041 | + + + | Race | Unknown | + + + | Ethnic Group | Unknown | + + + Author + + + | Author | [facility] | | | and [place] | + + + | Organization | [facility] | | | and [place] | + + + | Address | Unknown | + + + | Phone | Unavailable | + + + Support + + + + + | Name | Relationship | Address | Phone | + + + + + | Yancy Rodas | ECON | [address] | | | | | [place], [place] | | | | | [address] | | + + + + + Care Team Providers + +------+ + | Care Curriculum Facilitator Name | Role | Phone | + +------+ + PCP | Unavailable | + +------+ + Encounter Details +--------+ + + + + | Date | Type | Department | Care Team | Description | +--------+ + + + + | 06/16/ | [facility] | [facility] | Faustino Price MD | | | 1997 | Encounter | MED CTR GENERIC OP | [address] | | | | | CONV DEPT [address] | [address] [place] | | | | | [place], | [address] | | | | | [place] [address] | | | | | | [phone] | | | +--------+ + + + [...]
--- OUTSIDE RECORDS SUMMARY | ~2019-01-31 | XMS | Encounter Summary ---
Demographics + + + | Address | [address] | | | [place] [address] | + + + | Home Phone | | + + + | Preferred Language | Unknown | + + + | Marital Status | | + + + | Buddhist Affiliation | 1041 | + + + | Race | Unknown | + + + | Ethnic Group | Unknown | + + + Author + + + | Author | [facility] | | | and [place] | + + + | Organization | [facility] | | | and [...] [place] | | | | | [address] | | + + + + + Care Team Providers + +------+ + | Care Custodian Manager Name | Role | Phone | + +------+ + | Manjit Roque MD | PCP | | + +------+ + Encounter Details +--------+ + + + + | Date | Type | Department | Care Team | Description | +--------+ + + + + | 03/07/ | Orders Only | [facility] | Manjit Roque | | | 2017 | | CONVERSION [address] | MD [address] | | | | | [address] | [address] | | | | | [place], [place] | [place] | | | | | [address] | [phone] | | | | | [phone] | [phone] | | | | | | | [...] | + +--------+ + + + | ECHO INTERPRETATION | Routin | 03/07/2016 | | Results for this | | OF OUTSIDE FILMS | e | 11:28 AM | | procedure are in the | | | | PST | | results section. | + +--------+ + + + documented in this encounter Results ECHO Interpretation of Outside Films (03/07/2016 11:28 AM PST) + + | Specimen | + + | | + + + + + | Impressions | Performed At | + + + | 1. The left ventricle is normal in size, wall thickness and systolic | | | function EF 60-65%. 2. The diastolic filling pattern indicates | | | impaired relaxation consistent with mild dysfunction (Grade I). 3. | | | The right ventricle is normal in size and function. 4. There is no | | | pericardial effusion. | | + + + + + + | Narrative | Performed At | + + + | Patient Name: Faustino Rodas Date of : 1950 | | | Performing Physician: Soumya Estrada | | | | | | INDICATIONS Abnormal EKG CONCLUSIONS | | | 1. The left ventricle is normal in size, wall thickness and systolic | | | function EF 60-65%. 2. The diastolic filling pattern indicates | | | impaired relaxation consistent with mild dysfunction (Grade I). 3. | | | The right ventricle is normal in size and function. 4. There is no | | | pericardial effusion. FINDINGS -------- ECG rhythm: Sinus | | | rhythm. Study: A 2-dimensional transthoracic echocardiogram with | | | m-mode, spectral and color flow Doppler was perfomed. Study: This was | | | a technically adequate study. Left Ventricle: Overall left | | | ventricular systolic function is normal with, an EF between 60 - 65 %. | | | Left Ventricle: The left ventricle cavity size is normal. Left | | | Ventricle: Left ventricular wall thickness is normal. Left Ventricle: | | | No regional wall motion abnormalities. Left Ventricle: The diastolic | | | filling pattern indicates impaired relaxation consistent with mild | | | dysfunction (Grade I). Right Ventricle: The right ventricle is normal | | | in size and function. Left Atrium: The left atrium is normal in | | | size. Right Atrium: The right atrium is normal in size. Aortic | | | Valve: The aortic valve is trileaflet and appears structurally normal. | | | Aortic Valve: There is no evidence of aortic regurgitation. Aortic | | | Valve: There is no evidence of aortic stenosis. Mitral Valve: The | | | mitral valve is normal. Tricuspid Valve: The tricuspid valve appears | | | structurally normal. Tricuspid Valve: Trace tricuspid regurgitation | | | present. Tricuspid Valve: There is no evidence of pulmonary | | | hypertension. Tricuspid Valve: The right ventricular systolic | | | pressure (pulmonary artery systolic pressure), as measured by Doppler, | | | is 18.88mmHg. Pulmonic Valve: The pulmonic valve is normal. | | | Pericardium: There is no pericardial effusion. Pericardium: No | | | pleural effusion seen. IVC/Hepatic Veins: The IVC is normal size | | | (1.5-2.5cm) and collapses >50% with sniff, consistent with central | | | venous pressures of 5-10mmHg. Aorta: The aortic root and ascending | | | aorta are within normal dimensions. MEASUREMENTS | | | Ao asc: 3.22 cm Ao Diam: 3.49 cm Ao sinus: 3.[address] | | | junct: 3.08 cm IVC: 1.44 cm LA Diam: 4.23 cm EDV(Teich): | | | 141.31 ml IVSd: 0.73 cm LVIDd: 5.4 cm LVPWd: 0.78 cm | | | LVOT Area: 4.30 cm2 LVOT Diam: 2.34 cm %FS: 21.43 % | | | EF(Teich): 43.05 % ESV(Teich): 80.46 ml LVIDs: 4.24 cm | | | SV(Teich): 60.84 ml RVIDd: 2.84 cm RVOT Diam: 5.76 cm LVEF | | | MOD A2C: 56.15 % SV MOD A2C: 50.94 ml LVEF MOD A4C: 57.31 | | | % SV MOD A4C: 53.41 ml EF Biplane: 56.62 % LVEDV MOD BP: | | | 93.43 ml LVESV MOD BP: 40.52 ml LVEDV MOD A2C: 90.73 ml LVLd | | | A2C: 7.75 cm LVEDV MOD A4C: 93.19 ml LVLd A4C: 8.02 cm | | | LVESV MOD A2C: 39.78 ml LVLs A2C: 6.65 cm LVESV MOD A4C: | | | 39.77 ml LVLs A4C: 6.94 cm LAESV(A-L): 66.55 ml LAESV Index | | | (A-L): 29.97 ml/m2 LAAs A2C: 18.97 cm2 LAESV A-L A2C: 57.62 | | | ml LALs A2C: 5.30 cm LAAs A4C: 20.50 cm2 LAESV A-L A4C: | | | 71.92 ml LALs A4C: 4.96 cm RAAs: 14.33 cm2 RAESV A-L: | | | 37.78 ml RAESV MOD: 35.89 ml RALs: 4.61 cm AV maxP.59 | | | mmHg AV meanP.18 mmHg AV Vmax: 1.28 m/s AV Vmean: 0.83 | | | m/s AV VTI: 24.54 cm GIANNI Vmax: 3.11 cm2 GIANNI (VTI): 3.36 | | | cm2 AVAI Vmax: 0.00 cm2/m2 AVAI (VTI): 0.00 cm2/m2 LVOT | | | maxP.45 mmHg LVOT meanP.68 mmHg LVSI Dopp: 37.25 | | | ml/m2 LVSV Dopp: 82.71 ml LVOT Vmax: 0.92 m/s LVOT Vmean: | | | 0.61 m/s LVOT VTI: 19.20 cm MV A Markie: 0.65 m/s MV DecT: | | | 242.94 ms MV E Markie: 0.52 m/s MV E/A Ratio: 0.80 MV PHT: | | | 70.45 ms MVA By PHT: 3.12 cm2 Septal e': 0.04 m/s Septal | | | E/e': 10.83 Lateral e': 0.06 m/s Lateral E/e': 7.65 RAP: | | | 5 mmHg RVSP: 18.88 mmHg TR maxP.88 mmHg TR Vmax: | | | 1.86 m/s Box Car Washer: RAMONE Authenticated by: Soumya Estrada | | | Report Date/Time: 03-08-2016 08:52:20 | | + + + + + | Procedure Note | + + | [facility] Conversion - 10/17/2018 7:36 PM PDT Patient Name: Jon Rodas of | | : 1950 Performing Physician: Natalie, | | [place] INDICATIONS------- | | ----Abnormal EKG CONCLUSIONS 1. The left ventricle is normal in size, wall | | thickness and systolic function EF 60-65%.2. The diastolic filling pattern indicates | | impaired relaxation consistent with mild dysfunction (Grade I).3. The right ventricle is | | normal in size and function.4. There is no pericardial effusion. FINDINGS--------ECG | | rhythm: Sinus rhythm.Study: A 2-dimensional transthoracic echocardiogram with m-mode, | | spectral and color flow Doppler was perfomed.Study: This was a technically adequate | | study.Left Ventricle: Overall left ventricular systolic function is normal with, an EF | | between 60 - 65 %.Left Ventricle: The left ventricle cavity size is normal.Left | | Ventricle: Left ventricular wall thickness is normal.Left Ventricle: No regional wall | | motion abnormalities.Left Ventricle: The diastolic filling pattern indicates impaired | | relaxation consistent with mild dysfunction (Grade I).Right Ventricle: The right | | ventricle is normal in size and function.Left Atrium: The left atrium is normal in | | size.Right Atrium: The right atrium is normal in size.Aortic Valve: The aortic valve is | | trileaflet and appears structurally normal.Aortic Valve: There is no evidence of aortic | | regurgitation.Aortic Valve: There is no evidence of aortic stenosis.Mitral Valve: The | | mitral valve is normal.Tricuspid Valve: The tricuspid valve appears structurally | | normal.Tricuspid Valve: Trace tricuspid regurgitation present.Tricuspid Valve: There is | | no evidence of pulmonary hypertension.Tricuspid Valve: The right ventricular systolic | | pressure (pulmonary artery systolic pressure), as measured by Doppler, is | | 18.88mmHg.Pulmonic Valve: The pulmonic valve is normal.Pericardium: There is no | | pericardial effusion.Pericardium: No pleural effusion seen.IVC/Hepatic Veins: The IVC is | | normal size (1.5-2.5cm) and collapses >50% with sniff, consistent with central venous | | pressures of 5-10mmHg.Aorta: The aortic root and ascending aorta are within normal | | dimensions. MEASUREMENTS Ao asc: 3.22 cmAo Diam: 3.49 cmAo sinus: 3.78 | | cmAo st junct: 3.08 cmIVC: 1.44 cmLA Diam: 4.23 cmEDV(Teich): 141.31 mlIVSd: | | 0.73 cmLVIDd: 5.4 cmLVPWd: 0.78 cmLVOT Area: 4.30 hd4CPVD Diam: 2.34 cm%FS: | | 21.43 %EF(Teich): 43.05 %ESV(Teich): 80.46 mlLVIDs: 4.24 cmSV(Teich): 60.84 | | mlRVIDd: 2.84 cmRVOT Diam: 5.76 cmLVEF MOD A2C: 56.15 %SV MOD A2C: 50.94 mlLVEF | | MOD A4C: 57.31 %SV MOD A4C: 53.41 mlEF Biplane: 56.62 %LVEDV MOD BP: 93.43 | | mlLVESV MOD BP: 40.52 mlLVEDV MOD A2C: 90.73 mlLVLd A2C: 7.75 cmLVEDV MOD A4C: | | 93.19 mlLVLd A4C: 8.02 cmLVESV MOD A2C: 39.78 mlLVLs A2C: 6.65 cmLVESV MOD A4C: | | 39.77 mlLVLs A4C: 6.94 cmLAESV(A-L): 66.55 mlLAESV Index (A-L): 29.97 ml/m2LAAs | | A2C: 18.97 [id number] A-L A2C: 57.62 mlLALs A2C: 5.30 cmLAAs A4C: 20.50 [id number] | | A-L A4C: 71.92 mlLALs A4C: 4.96 cmRAAs: 14.33 [id number] A-L: 37.78 mlRAESV MOD: | | 35.89 mlRALs: 4.61 cmAV maxP.59 mmHgAV meanP.18 mmHgAV Vmax: 1.28 m/Thea | | Vmean: 0.83 m/Thea VTI: 24.54 cmAVA Vmax: 3.11 cm2AVA (VTI): 3.36 [id number] Vmax: | | 0.00 cm2/m2AVAI (VTI): 0.00 cm2/m2LVOT maxP.45 mmHgLVOT meanP.68 | | mmHgLVSI Dopp: 37.25 ml/m2LVSV Dopp: 82.71 mlLVOT Vmax: 0.92 m/sLVOT Vmean: 0.61 | | m/sLVOT VTI: 19.20 cmMV A Markie: 0.65 m/sMV DecT: 242.94 msMV E Markie: 0.52 m/sMV | | E/A Ratio: 0.80MV PHT: 70.45 msMVA By PHT: 3.12 [id number] e': 0.04 m/sSeptal | | E/e': 10.83Lateral e': 0.06 m/sLateral E/e': 7.65RAP: 5 mmHgRVSP: 18.88 mmHgTR | | maxP.88 mmHgTR Vmax: 1.86 m/s Box Car Washer: [email or web address] by: Natalie | | MershedReport Date/Time: 03-08-2016 08:52:20 IMPRESSION: 1. The left ventricle is normal | | in size, wall thickness and systolic function EF 60-65%.2. The diastolic filling | | pattern indicates impaired relaxation consistent with mild dysfunction (Grade I).3. The | | right ventricle is normal in size and function.4. There is no pericardial effusion. | |Ao Diam: 3.49 cm | |Ao sinus: 3.78 cm | |Ao st junct: 3.08 cm | |IVC: 1.44 cm | |LA Diam: 4.23 cm | |EDV(Teich): 141.31 ml | |IVSd: 0.73 cm | |LVIDd: 5.4 cm | |LVPWd: 0.78 cm | |LVOT Area: 4.30 cm2 | |LVOT Diam: 2.34 cm | |%FS: 21.43 % | |EF(Teich): 43.05 % | |ESV(Teich): 80.46 ml | |LVIDs: 4.24 cm | |SV(Teich): 60.84 ml | |RVIDd: 2.84 cm | |RVOT Diam: 5.76 cm | |LVEF MOD A2C: 56.15 % | |SV MOD A2C: 50.94 ml | |LVEF MOD A4C: 57.31 % | |SV MOD A4C: 53.41 ml | |EF Biplane: 56.62 % | |LVEDV MOD BP: 93.43 ml | |LVESV MOD BP: 40.52 ml | |LVEDV MOD A2C: 90.73 ml | |LVLd A2C: 7.75 cm | |LVEDV MOD A4C: 93.19 ml | |LVLd A4C: 8.02 cm | |LVESV MOD A2C: 39.78 ml | |LVLs A2C: 6.65 cm | |LVESV MOD A4C: 39.77 ml | |LVLs A4C: 6.94 cm | |LAESV(A-L): 66.55 ml | |LAESV Index (A-L): 29.97 ml/m2 | |LAAs A2C: 18.97 cm2 | |LAESV A-L A2C: 57.62 ml | |LALs A2C: 5.30 cm | |LAAs A4C: 20.50 cm2 | |LAESV A-L A4C: 71.92 ml | |LALs A4C: 4.96 cm | |RAAs: 14.33 cm2 | |RAESV A-L: 37.78 ml | |RAESV MOD: 35.89 ml | |RALs: 4.61 cm | |AV maxP.59 mmHg | |AV meanP.18 mmHg | |AV Vmax: 1.28 m/s | |AV Vmean: 0.83 m/s | |AV VTI: 24.54 cm | |GIANNI Vmax: 3.11 cm2 | |GIANNI (VTI): 3.36 cm2 | |AVAI Vmax: 0.00 cm2/m2 | |AVAI (VTI): 0.00 cm2/m2 | |LVOT maxP.45 mmHg | |LVOT meanP.68 mmHg | |LVSI Dopp: 37.25 ml/m2 | |LVSV Dopp: 82.71 ml | |LVOT Vmax: 0.92 m/s | |LVOT Vmean: 0.61 m/s | |LVOT VTI: 19.20 cm | |MV A Markie: 0.65 m/s | |MV DecT: 242.94 ms | |MV E Markie: 0.52 m/s | |MV E/A Ratio: 0.80 | |MV PHT: 70.45 ms | |MVA By PHT: 3.12 cm2 | |Septal e': 0.04 m/s | |Septal E/e': 10.83 | |Lateral e': 0.06 m/s | |Lateral E/e': 7.65 | |RAP: 5 mmHg | |RVSP: 18.88 mmHg | |TR maxP.88 mmHg | |TR Vmax: 1.86 m/s | | | |Box Car Washer: | |Authenticated by: Soumya Estrada | |Report Date/Time: 03-08-2016 08:52:20 | | | |IMPRESSION: | |1. The left ventricle is normal in size, wall thickness and systolic function EF 60-65%. | |2. The diastolic filling pattern indicates impaired relaxation consistent with mild dysfunc tion (Grade I). | |3. The right ventricle is normal in size and function. | |4. There is no pericardial effusion. | + + documented in this encounter Visit Diagnoses Not on filedocumented in this encounter"
--- OUTSIDE RECORDS SUMMARY | ~2019-01-31 | XMS | Clinical Summary ---
Demographics + + + | Address | [address] | | | [place] [address] | + + + | Home Phone | | + + + | Preferred Language | Unknown | + + + | Marital Status | | + + + | Pentecostalism Affiliation | 1041 | + + + | Race | Unknown | + + + | Ethnic Group | Unknown | + + + Author + + + | Author | [facility] | | | and [place] | + + + | Organization | [facility] | | | and [place] [...] [place] | | | | | [address] | | + + + + + Care Team Providers + +------+ + | Care Grating Machine Operator Name | Role | Phone | + +------+ + | Manjit Roque MD | PCP | | + +------+ + Allergies + + + + + + | Active Allergy | Reactions | Severity | Noted | Comments | | | | | Date | | + + + + + + | Nsaids | Other (See Comments) | Low | 12/26/19 | Pt experiences GI | | | | | 16 | distress with | | | | | | NSAIDS, only take | | | | | | his ASA 81mg daily | | | | | | and tolerates that | | | | | | fine. | + + + + + + Medications + + + +---------+------+------+-------+ | Medication | Sig | Dispensed | Refills | Star | End | Statu | | | | | | t | Date | s | | | | | | Date | | | + + + +---------+------+------+-------+ | simvastatin | Take 40 mg by mouth | | 0 | 10/27 | | Activ | | (ZOCOR) 40 mg tablet | Daily. | | | 06/15 | | e | | | | | | 12 | | | + + + +---------+------+------+-------+ | lisinopril | Take 5 mg by mouth | | 0 | 091 | | Activ | | (PRINIVIL, ZESTRIL) | Daily. | | | 420 | | e | | 5 mg tablet | | | | 12 | | | + + + +---------+------+------+-------+ | omeprazole | Take 20 mg by mouth | | 0 | 10/27 | | Activ | | (PRILOSEC) 20 mg | Daily. | | | 06/15 | | e | | capsule | | | | 12 | | | + + + +---------+------+------+-------+ | atenolol | Take 25 mg by mouth | | 0 | 1 | | Activ | | (TENORMIN) 25 mg | Daily. | | | 06/15 | | e | | tablet | | | | 12 | | | + + + +---------+------+------+-------+ | aspirin (ASPIRIN | Take 81 mg by mouth | | 0 | 10/27 | | Activ | | LOW DOSE) 81 MG | Daily. | | | 06/15 | | e | | tablet | | | | 12 | | | + + + +---------+------+------+-------+ | Calcium | TABS one by mouth | | 0 | 09/1 | | Activ | | Carbonate-Vitamin D | daily | | | 4/20 | | e | | (CALCIUM + D PO) | | | | 12 | | | + + + +---------+------+------+-------+ | Standish-3 Fatty | CAPS one by mouth 3 | | 0 | 09/1 | | Activ | | Acids (FISH OIL PO) | times a week | | | 4/20 | | e | | | | | | 12 | | | + + + +---------+------+------+-------+ | cyclobenzaprine | Take 10 mg by mouth | | 0 | | | Activ | | (FLEXERIL) 10 mg | 3 times daily as | | | | | e | | tablet | needed. | | | | | | + + + +---------+------+------+-------+ | | Take 1-2 tablets by | | 0 | | | Activ | | HYDROcodone-acetamin | mouth every 6 hours | | | | | e | | ophen (VICODIN) | as needed. | | | | | | | 5-500 mg per tablet | | | | | | | + + + +---------+------+------+-------+ | Cholecalciferol | Take 2,000 Units by | | 0 | | | Activ | | (VITAMIN D3) 2000 | mouth Daily. | | | | | e | | UNITS CAPS | | | | | | | + + + +---------+------+------+-------+ | melatonin 3 mg | Take 3 mg by mouth | | 0 | | | Activ | | TABS | nightly as needed. | | | | | e | + + + +---------+------+------+-------+ | HYDROCORTISONE, | Apply 1 Application | | 0 | | | Activ | | TOPICAL, 1 % GEL | topically as needed. | | | | | e | + + + +---------+------+------+-------+ | nitroglycerin | Place 0.4 mg under | | 0 | | | Activ | | (NITROSTAT) 0.4 mg | the tongue every 5 | | | | | e | | SL tablet | minutes as needed. | | | | | | + + + +---------+------+------+-------+ | | 1 drop daily as | | 0 | | | Activ | | carboxymethylcellulo | needed. | | | | | e | | se (REFRESH TEARS) | | | | | | | | 0.5% ophthalmic | | | | | | | | solution | | | | | | | + + + +---------+------+------+-------+ | dilTIAZem | Take 60 mg by mouth | | 0 | | | Activ | | (CARDIZEM) 60 mg | 3 (three) times | | | | | e | | tablet | daily. | | | | | | + + + +---------+------+------+-------+ | imipramine | Take 25 mg by mouth | | 0 | | | Activ | | (TOFRANIL) 25 mg | nightly. Takes as a | | | | | e | | tablet | muscle relaxer | | | | | | + + + +---------+------+------+-------+ | Multiple | Take 1 tablet by | | 0 | | | Activ | | Vitamins-Minerals | mouth daily. | | | | | e | | (MULTIVITAMIN WITH | | | | | | | | MINERALS) tablet | | | | | | | + + + +---------+------+------+-------+ | | Take 1 tablet by | | 0 | | | Activ | | oxyCODONE-acetaminop | mouth every 4 (four) | | | | | e | | hen (PERCOCET) 5-325 | hours as needed for | | | | | | | mg per tablet | Pain. | | | | | | + + + +---------+------+------+-------+ | aspirin 81 MG | Take 81 mg by mouth | | 0 | | | Activ | | tablet | daily. | | | | | e | + + + +---------+------+------+-------+ | cholecalciferol | Take 2,000 Units by | | 0 | | | Activ | | (CHOLECALCIFEROL) | mouth daily. | | | | | e | | 1000 units TABS | | | | | | | + + + +---------+------+------+-------+ | cyclobenzaprine | Take 5 mg by mouth 3 | | 0 | | | Activ | | (FLEXERIL) 5 MG | (three) times daily | | | | | e | | tablet | as needed for | | | | | | | | Muscle spasms. | | | | | | + + + +---------+------+------+-------+ | lisinopril | Take 20 mg by mouth | | 0 | | | Activ | | (PRINIVIL, ZESTRIL) | 2 (two) times daily. | | | | | e | | 20 mg tablet | Morning and evening | | | | | | + + + +---------+------+------+-------+ | melatonin 3 mg | Take 5 mg by mouth | | 0 | | | Activ | | TABS | nightly. | | | | | e | + + + +---------+------+------+-------+ Active Problems + + + | Problem | Noted Date | + + + | Benign essential hypertension | 12/25/2016 | + + + | Spontaneous pneumothorax | 12/25/2016 | + + + | Preventative health care | 04/17/2012 | + + + + + | Overview: Colonoscopy:12/01/2008 | | | | Next due: | | | | PSA: Date: Result: | + + + +---+ | ABDOMINAL BLOATING | | + +---+ | CHEST PAIN | | + +---+ | GASTROESOPHAGEAL REFLUX DISEASE | | + +---+ | HYPERTENSION | | + +---+ | SHORTNESS OF BREATH | | + +---+ | PLEURISY | | + +---+ | MYOSITIS | | + +---+ | HYPERLIPIDEMIA | | + +---+ | DIARRHEA | | + +---+ | VITAMIN D DEFICIENCY | | + +---+ Family History + + + + + | Medical History | Relation | Name | Comments | + + + + + | Cancer | Brother | | prostate | + + + + + | Heart disease | Brother | | | + + + + + | Heart disease | Brother | | | + + + + + | Heart disease | Brother | | | + + + + + | Heart disease | Brother | | | + + + + + | Cancer | Father | | prostate | + + + + + | Heart disease | Father | | | + + + + + | Prostate cancer | Father | | | + + + + + | Dementia | Mother | | | + + + + + | Other (see comment) | Mother | | dementia; colon polyps | + + + + + | Coronary artery | Other | Siblings | | | disease | | | | + + + + + | Prostate cancer | Other | Siblings | | + + + + + | Stroke | Neg Hx | | | + + + + + + + + + + | Relation | Name | Status | Comments | + + + + + | Brother | | Alive | | + + + + + | Brother | | Alive | | + + + + + | Brother | | | | + + + + + | Brother | | | | + + + + + | Brother | | | | + + + + + | Brother | | | | + + + + + | Brother | | | | + + + + + | Father | | | | + + + + + | Father | | | | + + + + + | Mother | | | | + + + + + | Other | Siblings | | | + + + + + Social History + [...] + + + | Blood Pressure | 116/74 | 01/10/2017 9:21 AM | | | | | PST | | + + + + + | Pulse | 71 | 01/10/2017 9:21 AM | | | | | PST | | + + + + + | Temperature | 36.8 C (98.2 F) | 01/10/2017 9:21 AM | | | | | PST [...] + + + + | Weight | 94.3 kg (208 lb) | 01/10/2017 9:21 AM | | | | | PST | | + + + + + | Height | 190.5 cm (6' 3") | 12/29/2016 8:01 AM | | | | | PDT | | + + + + + | Body Mass Index | 26 | 12/29/2016 8:01 AM | | | | | PDT | | + + + + + Plan of Treatment + + + + + | Health Maintenance | Due Date | Last Done | Comments | + + + + + | Vaccine: | | | | | Dtap/Tdap/Td (1 - | 8 | | | | Tdap) | | | | + + + + + | Vaccine: Zoster (1 | | | | | of 2) | 9 | | | + + + + + | Vaccine: | | | | | Pneumococcal 65+ (1 | 4 | | | | of 2 - PCV13) | | | | + + + + + | Vaccine: Influenza | | | | | (#1) | 9 | | | + + + + + Results Not on filefrom Last 3 Months Insurance +-------+--------+ +--------+-------+---------+------+ | Payer | Benefi | Subscriber | Effect | Phone | Address | Type | | | t Plan | ID | jim | | | | | | / | | Dates | | | | | | Group | | | | | | +-------+--------+ +--------+-------+---------+------+ | BCBS | BCBS | [id number] | 03/05/18 | | | PPO | | | [place]ER[place] | | 94-Pre | | | | | | L FEP | | sent | | | | +-------+--------+ +--------+-------+---------+------+ + +--------+ +--------+ + + | Guarantor [...] | | al/Fam | | 1950 | [phone] | [place] [address] | | | carmen | | | 2 (Home) | | + +--------+ +--------+ + + Advance Directives + + + + + | Type | Date Recorded | Patient | Explanation | | | | Fractionating Still Operator | | + + + + + | Power of | | | | | Boiler Repairman | | | | + + + + +
--- OUTSIDE RECORDS SUMMARY | ~2019-01-31 | XMS | Encounter Summary ---
Demographics + + + | Address | [address] | | | [place] [address] | + + + | Home Phone [...] [place] | | | | | [address] | | + + + + + Care Team Providers + +------+ + | Care Boot And Shoe Laborer Name | Role | Phone | + +------+ + PCP | Unavailable | + +------+ + Encounter Details +--------+ + + + + | Date | Type | Department | Care Team | Description | +--------+ + + + + | 10/08/ | Results | | Other, Faculty | | | 2001 | Only | | [phone] | | +--------+ + + + + [...] | | | | | Analysis (EM #[id number]): | | | | | | - [...] Ng, | | | | | | [facility] | | | | | | [facility] [place], | | | | | | is [...] EM | | | | | | #[id number]:Plastic embedded | | | | | | [...] A | | | | | | group sales representative portion | | | | | [...] | + + + + + | [facility] | [address] | [place] [address] | | | PATHOLOGY | [facility] | | | + + + + + | [facility] | [address] | [place] [address] | | | PATHOLOGY | [facility] | | | + + + + + documented in this encounter Visit Diagnoses Not on filedocumented in this encounter"
--- OUTSIDE RECORDS SUMMARY | ~2019-01-31 | XMS | Encounter Summary ---
Demographics + + + | Address | [address] | | | [place] [address] | + + + | Home Phone | | + + + | Preferred Language | Unknown | + + + | Marital Status | | + + + | Holiness Affiliation | 1041 | + + + | Race | Unknown | + + + | Ethnic Group | Unknown | + + + Author + + + | Author | [facility] | | | and [place] | + + + | Organization | [facility] | | | and [...] | [place] | | | | | [address] | | + + + + + Care Team Providers + +------+ + | Care Tool Grinder Set Up Operator Gear Name | Role | Phone | + [...] 2012 | | GASTROENTEROLOGY | [address], [place] | | | | | [address] | [address] [place], [place] | | | | | [address] [place], [place] | [address] | | | | | [address] | | | | | | [phone] | | | +--------+ + + + [...]
--- OUTSIDE RECORDS SUMMARY | ~2019-01-31 | XMS | Encounter Summary ---
Demographics + + + | Address | [address] | | | [place] [address] | + + + | Home Phone | | + + + | Preferred Language | Unknown | + + + | Marital Status | | + + + | Jain Affiliation | 1041 | + + + | Race | Unknown | + + + | Ethnic Group | Unknown | + + + Author + + + | Author | [facility] | | | and Markana | + + + | Organization | [facility] | | | and Markana [...] [place] | | | | | [address] | | + + + + + Care Team Providers + +------+ + | Care Physical Therapist Aide Name | Role | Phone | + [...] Provider Unknown | | | | | [place], [place] | [phone] | | | | | [address] | | | | | | [phone] | | | +--------+ + + + [...] + + + +---------+ + + | Russell-3 Fatty | CAPS one by mouth 3 [...]
--- OUTSIDE RECORDS SUMMARY | ~2019-01-31 | XMS | Encounter Summary ---
Demographics + + + | Address | [address] | | | [place] [address] | + + + | Home Phone | | + + + | Preferred Language | Unknown | + + + | Marital Status | | + + + | Episcopal Affiliation | 1041 | + + + | Race | Unknown | + + + | Ethnic Group | Unknown | + + + Author + + + | Author | [facility] | | | and Markana | + + + | Organization | [facility] | | | and Markana [...] [place] | | | | | [address] | | + + + + + Care Team Providers + +------+ + | Care Neurophysiologist Name | Role | Phone | + [...] 2012 | | GASTROENTEROLOGY | [address], [place] | | | | | [address] | [address] [place], [place] | | | | | [address] [place], [place] | [address] | | | | | [address] | | | | | | [phone] | | | +--------+ + + + [...]
--- OUTSIDE RECORDS SUMMARY | ~2019-01-31 | XMS | Encounter Summary ---
Demographics + + + | Address | [address] | | | [place] [address] | + + + | Home Phone [...] | Author | [facility] | | | and Markana | + + + | Organization | [facility] | | [...] [place], [place] | | | | | [address] | | + + + + + Care Team Providers + +------+ + | Care Rigging Engineer Name | Role | Phone | + [...] | | | | [address] | | | | | | [place] | | | | | | [address] | | | | | | [phone] | | | +--------+ + + + [...]
--- OUTSIDE RECORDS SUMMARY | ~2019-01-31 | XMS | Encounter Summary ---
Demographics + + + | Address | [address] | | | [place] [address] | + + + | Home Phone | | + + + | Preferred Language | Unknown | + + + | Marital Status | | + + + | Cheondoism Affiliation | CAT | + + + | Race | White | + + + | Ethnic Group | Not or | + + + Author + + + | Author | [facility] | + + + | Organization | [facility] | + + + | Address | Unknown | + + + | Phone | Unavailable | + + + Support + + + + + | Name | Relationship | Address | Phone | + + + + + | Yancy Rodas | ECON | [address] | | | | | [place] | | | | | [address] | | + + + + + Care Team Providers + +------+ + | Care Set Up Operator Name | Role | Phone | + +------+ + PCP | Unavailable | + +------+ + Encounter Details +--------+ + + + + | Date | Type | Department | Care Team | Description | +--------+ + + + + | 01/05/ | Hospital | Dermatopathology | | | | 2014 | Encounter | [address] | | | | | | Mailcode: CH16D | | | | | | [facility] | | | | | | and Healing, | | | | | | Building [address], | | | | | | Floor [place], [place] | | | | | | [address] | | | | | | [phone] | | | +--------+ + + + [...] + + | [facility] | Mailcode CH5D, [address] | [place] [address] | | | DERMATOPATHOLOGY | [address] | | | + + + + + documented in this encounter Visit Diagnoses Not on filedocumented in this encounter"
--- OUTSIDE RECORDS SUMMARY | ~2019-01-31 | XMS | Encounter Summary ---
Demographics + + + | Address | [address] | | | [place] [address] | + + + | Home Phone | | + + + | Preferred Language | Unknown | + + + | Marital Status | | + + + | Evangelical Affiliation | 1041 | + + + | Race | Unknown | + + + | Ethnic Group | Unknown | + + + Author + + + | Author | [facility] | | | and Markana | + + + | Organization | [facility] | | | and Markana [...] | [place] | | | | | [address] | | + + + + + Care Team Providers + +------+ + | Care Slat Basket Maker Machine Name | Role | Phone | + [...] 2012 | | GASTROENTEROLOGY | [address] [place] | | | | | [address] | [address] [place], [place] | | | | | [address] [place], [place] | [address] | | | | | [address] | | | | | | [phone] | | | +--------+ + + + [...]
--- OUTSIDE RECORDS SUMMARY | ~2019-01-31 | XMS | Encounter Summary ---
Demographics + + + | Address | [address] | | | [place] [address] | + + + | Home Phone | | + + + | Preferred Language | Unknown | + + + | Marital Status | | + + + | Methodist Affiliation | CAT | + + + | Race | White | + + + | Ethnic Group | Not or | + + + Author + + + | Author | [facility] | + + + | Organization | [facility] | + + + | Address | Unknown | + + + | Phone | Unavailable | + + + Support + + + + + | Name | Relationship | Address | Phone | + + + + + | Yancy Hurt | ECON | [address] | | | | | [place] | | | | | [address] | | + + + + + Care Team Providers + +------+ + | Care Diagnostics Tech Name | Role | Phone | + [...] [place] | | | 11/06/ | | [place], | [address] | | | 2018 | | [place] [address] | [phone] | | | | | [phone] | | | | | | | Gómez Noble, | | | | | | MD [address] | | | | | | [place], [place] | | | | | | [address] | | | | | | [phone] | | | | | | | [...] rom the original. DISCHARGE SUMMARY Discharging Physician: GÓMEZ NOBLE MD PCP: Rosangela Dumas MD Admission Date: 11/05/2017 Discharge Date: 11/06/17 Consults: None Major Procedures: None Major Diagnostic Imaging: None Discharge Diagnosis: Noncardiac chest pain Admitting Presentation: Admission History History of present illness is per the patient, who appears to be a good historian, conversa tion with the ED physician, records from [facility] in [place], and the [facility] medical record. The ED physician has asked [...] reports that he was fishing on the [place] yesterday. He has felt in his [facility] recently but when he was tying his boat up he felt a pop in his right s houlder followed by some tfsd-jr-uhbmvbyg pain. This did not bother him much [...] per prio r tracing done 12/25/2016 at [facility] Exercise stress test with nuclear medicine imaging on 05/29/2016 at [facility] is read as showing low risk for significant coronary artery disease Echocardiogram at [facility] on 03/07/2016 showed grade 1 diastolic dysfunction and no other significant abnormalities Event monitor at [facility] on 03/07/2016 showed no significant arrhythmias Basic [...] Internal Medicine Why: Hospital follow up. Dr. Dumsa's office will call you to schedule an appointment. Ta ke your prescription medications, ymew-qej-thnmtmi medications and dietary supplements with you to your appointment. Contact information [facility] [address] [place] [id number] Other Discharge Orders and Instructions Time spent in preparation of this discharge was greater than 30 minutes. GÓMEZ NOBLE MD Hospital Medicine Service [facility] Please send copy to Rosangela Dumas MDElectronically [...] irregular heartbeat. After you call 911, the crimper operator may tell you to chew 1 [...] "Chest Pain: Care Instructions", log into your [employer] account at [email or web address]: [email or web address]. You can enter A120 in the "Flipiture" search box. Not on [employer]? Review the [employer] section of your After Visit Summary for directions on ann-marie ashraf to sign up. Current as of: January 15, 2017 Content Version: 11.7 6739-0143 [employer]. Care instructions adapted under license by [facility]. If you have questions about a medical condition or this instr uction, always ask your healthcare professional. [employer] disclaims any maximino anty or liability for [...] Flako Perla Source of this list is: [facility] with patient corroboration Medication supervised by: Patient [...] + + | [facility] | [address] | [place] [address] | [phone] | | MEDICAL CENTER | Streets | [...] | [place] | And | [place] [address] | [phone] | | [facility] | Streets | | | + + + + + X-RAY CHEST 2 VIEW (11/05/2017 7:30 AM PDT) + + | Specimen | + + | | + + + + + | Narrative | Performed At | + + + | [address] | [facility] | | [place] [address] | DEPARTMENT | | [phone] Name: JANETTE HURT Phys: | RADIOLOGY | | SILVINO ESPITIA : 1950 Sex: M | | | CSN: [id number] MR# [id number] Exam Date: | | | 11/05/2017 EXAM: X-RAY CHEST 2 VIEW [id number] CLINICAL HISTORY: | | | Shortness of [...] | | | Transcribed Date/Time: 11/05/2017 08:03 [employer] Rater: FLUENCY | | | | | + + + + + | Procedure Note | + + | Interface, Radiology Results - 11/05/2017 8:07 AM PDT [address] | | [address] [place] [address] | | Name: JANETTE HURT Phys: NUPURSILVINO Garcia : 1950 Sex: M | | CSN: [id number] MR# [id number] Exam Date: 11/05/2017 EXAM:X-RAY CHEST 2 VIEW | | [id number] CLINICAL HISTORY:Shortness of breath. COMPARISON:None available. TECHNIQUE:Frontal [...] | |EXAM: | |X-RAY CHEST 2 VIEW [id number] | | | |CLINICAL HISTORY: | |Shortness [...] | | |Transcribed Date/Time: 11/05/2017 08:03 | |[employer] Rater: FLUENCY | | | | | | [...] | + + + + + | [facility] | And | [place] [address] | [phone] | | MEDICAL CENTER | Streets | [...] | + + + + + | [facility] | And | [place] [address] | [phone] | | MEDICAL CENTER | Streets | | | + + + + + NT-PRO BNP (11/05/2017 7:00 AM PDT) + +-------+ + + + | Component | Value | Ref Range | Performed | Pathologist | | | | | At | Signature | + +-------+ + + + | NT-PRO BNP | 41 | <126 pg/mL | [facility] | | | | | | A [...] 0-75 yr <125 pg/mL >75 yr | [facility] | | <450 pg/mL RULE IN [...] + | [place] | [address] | [place] [address] | [phone] | | MEDICAL CENTER | Streets | [...] normal. Values greater than 0.06 are | [facility] | | suggestive of AMI. | MEDICAL CENTER | + + + + + + + + | Performing | Address | City/State/Zipcode | Phone Number | | Organization | | | | + + + + + | [facility] | And | [place] [address] | [phone] | | MEDICAL CENTER | Streets | [...] | | A MEDICAL | | | [place] | | | CENTER | | + [...] | [place] | And | [place] [address] | [phone] | | [facility] | Streets | | | + + [...] + + + | [facility] | [id number] | | [facility] | | | | [id number] | | MEDICAL | | | | [...] ------- ---- 11/05/2017 06:45 | | | [facility] [place] [facility] | | | [address]. CP ED VISIT COUNT (12 MO.) Visits Location | | | ------ --------- 1 [facility] 2 | | [facility] Total Note: Visits indicate | [...] | | | | Unknown Case or Armament Aircraft Mechanic Unknown - | | | Current Farideh ROQUE at [facility] | | | Unknown Other | | | Unknown - Current | | + + + + + + + + | Performing | Address | City/State/Zipcode | Phone Number | | Organization | | | | + + + + + | [facility] | [address], | [place], [place] | [phone] | | TECHNOLOGIES | [address] | [address] | | + + + + + [...]
--- OUTSIDE RECORDS SUMMARY | ~2019-01-31 | XMS | Encounter Summary ---
Demographics + + + | Address | [address] | | | [place] [address] | + + + | Home Phone | | + + + | Preferred Language | Unknown | + + + | Marital Status | | + + + | Mosque Affiliation | 1041 | + + + | Race | Unknown | + + + | Ethnic Group | Unknown | + + + Author + + + | Author | [facility] | | | and Markana | + + + | Organization | [facility] | | | and [...] [place], [place] | | | | | [address] | | + + + + + Care Team Providers + +------+ + | Care Utility Engineer Name | Role | Phone | [...] | SR | | | | | [phone] | | | +--------+ + + + [...]
--- OUTSIDE RECORDS SUMMARY | ~2019-01-31 | XMS | Clinical Summary ---
Demographics + + + | Address | [address] | | | [place] [address] | + + + | Home Phone | | + + + | Preferred Language | Unknown | + + + | Marital Status | | + + + | Druze Affiliation | 1041 | + + + | Race | Unknown | + + + | Ethnic Group | Unknown | + + + Author + + + | Author | [facility] | | | and Markana | + + + | Organization | [facility] | | | and Markana [...] [place] | | | | | [address] | | + + + + + Care Team Providers + +------+ + | Care Autoclave Operator Name | Role | Phone | [...] | | + + + +---------+------+------+-------+ | Munday-3 Fatty | CAPS one by mouth 3 [...] +-------+--------+ +--------+-------+---------+------+ | BCBS | BCBS | [id number] | 03/05/18 | | | PPO | [...] | | al/Fam | | 1950 | [phone] | [place] [address] | | | carmen | | | 2 (Home) | | + +--------+ +--------+ + + Advance Directives + + + + + | Type | Date Recorded | Patient | Explanation | | | | Formwork Carpenter | | + + + + + | Power of | | | | | Shovel Logger | | | | + + + + +
--- OUTSIDE RECORDS SUMMARY | ~2019-01-31 | XMS | Clinical Summary ---
Demographics + + + | Address | [address] | | | [place] [address] | + + + | Home Phone | | + + + | Preferred Language | Unknown | + + + | Marital Status | | + + + | Advent Affiliation | 1041 | + + + | Race | Unknown | + + + | Ethnic Group | Unknown | + + + Author + + + | Author | [facility] (Historical as of | | | 10-12-18) | + + + | Organization | [facility] (Historical as of | | | 10-12-18) | + + + | Address | Unknown | + + + | Phone | Unavailable | + + + Support + + +---------+ + | Name | Relationship | Address | Phone | + + +---------+ + | Yancy Rodas | ECON | Unknown | | + + +---------+ + Care Team Providers + +------+ + | Care Supervisor Jewelry Department Name | Role | Phone | + +------+ + | Manjit Roque MD | PP | | + +------+ + Allergies + + + + + + | Active Allergy | Reactions | Severity | Noted | Comments | | | | | Date | | + + + + + + | Nsaids | GI Distress | Low | 10/30/20 | Pt experiences GI | | | | | 16 | distress with | | | | | | NSAIDS, only take | | | | | | his ASA 81mg daily | | | | | | and tolerates that | | | | | | fine. | + + + + + + Current Medications + + +-------+---------+------+------+-------+ | Prescription | Sig. | Disp. | Refills | Star | End | Statu | | | | | | t | Date | s | | | | | | Date | | | + + +-------+---------+------+------+-------+ | diltiazem | Take 60 mg by mouth | | | | | Activ | | (CARDIZEM) 60 MG | 3 (three) times | | | | | e | | tabletIndications: | daily. | | | | | | | Hypertension, Muscle | | | | | | | | Cramps | | | | | | | + + +-------+---------+------+------+-------+ | lisinopril | Take 20 mg by mouth | | | | | Activ | | (ZESTRIL) 20 MG | 2 (two) times daily. | | | | | e | | tabletIndications: | Morning and evening | | | | | | | Hypertension | | | | | | | + + +-------+---------+------+------+-------+ | simvastatin | Take 40 mg by mouth | | | | | Activ | | (ZOCOR) 40 MG tablet | before breakfast. | | | | | e | + + +-------+---------+------+------+-------+ | aspirin 81 MG | Take 81 mg by mouth | | | | | Activ | | tablet | daily. | | | | | e | + + +-------+---------+------+------+-------+ | cholecalciferol | Take 2,000 Units by | | | | | Activ | | (VITAMIN D-3) 1000 | mouth daily. | | | | | e | | units tablet | | | | | | | + + +-------+---------+------+------+-------+ | Multiple | Take 1 tablet by | | | | | Activ | | Vitamins-Minerals | mouth daily. | | | | | e | | (MULTIVITAMIN WITH | | | | | | | | MINERALS) tablet | | | | | | | + + +-------+---------+------+------+-------+ | | 1 drop daily as | | | | | Activ | | carboxymethylcellulo | needed. | | | | | e | | se (REFRESH PLUS) | | | | | | | | 0.5 % SOLN | | | | | | | + + +-------+---------+------+------+-------+ | cyclobenzaprine | Take 5 mg by mouth 3 | | | | | Activ | | (FLEXERIL) 5 MG | (three) times daily | | | | | e | | tablet | as needed for | | | | | | | | Muscle spasms. | | | | | | + + +-------+---------+------+------+-------+ | | Take 1 tablet by | | | | | Activ | | oxyCODONE-acetaminop | mouth every 4 (four) | | | | | e | | hen (PERCOCET) 5-325 | hours as needed for | | | | | | | MG per tablet | Pain. | | | | | | + + +-------+---------+------+------+-------+ | imipramine | Take 25 mg by mouth | | | | | Activ | | (TOFRANIL) 25 MG | nightly. Takes as a | | | | | e | | tablet | muscle relaxer | | | | | | + + +-------+---------+------+------+-------+ | melatonin 3 MG | Take 5 mg by mouth | | | | | Activ | | TABS | nightly. | | | | | e | + + +-------+---------+------+------+-------+ Active Problems + + + | Problem | Noted Date | + + + | Spontaneous pneumothorax | 12/25/2016 | + + + | Benign essential hypertension | 12/25/2016 | + + + Family History + + +------+ + | Medical History | Relation | Name | Comments | + + +------+ + | Heart disease | Brother | | | + + +------+ + | Heart disease | Brother | | | + + +------+ + | Heart disease | Brother | | | + + +------+ + | Heart disease | Father | | | + + +------+ + | Stroke | Neg Hx | | | + + +------+ + + +------+ + + | Relation | Name | Status | Comments | + +------+ + + | Brother | | Alive | | + +------+ + + | Brother | | Alive | | + +------+ + + | Brother | | | | + +------+ + + | Father | | | | + +------+ + + Social History + +-------+ +--------+ + | Tobacco Use | Types | Packs/Day | Years | Date | | | | | Used | | + +-------+ +--------+ + | Former Smoker | | | | Quit: 02/27/1988 | + +-------+ +--------+ + + +---+---+---+ | Smokeless Tobacco: | | | | | Former User | | | | + +---+---+---+ + + | Comments: occaisonal cigar use, nothing for the past 1.5 years | + + + + +---------+ + | Alcohol Use | Drinks/We | oz/Week | Comments | | | ek | | | + + +---------+ + | Yes | | | daily | + + +---------+ + + + + | Sex Assigned at | Date Recorded | | | | + + + | Not on file | | + + + Last Filed Vital Signs + + + + | Vital Sign | Reading | Time Taken | + + + + | Blood Pressure | 116/74 | 01/10/2017 9:12 AM PST | + + + + | Pulse | 71 | 01/10/2017 9:12 AM PST | + + + + | Temperature | 36.8 C (98.2 F) | 01/10/2017 9:12 AM PST | + + + + | Respiratory Rate | 18 | 12/29/2016 8:01 AM PDT | + + + + | Oxygen Saturation | 99% | 01/10/2017 9:12 AM PST | + + + + | Inhaled Oxygen | - | - | | Concentration | | | + + + + | Weight | 94.3 kg (208 lb) | 01/10/2017 9:12 AM PST | + + + + | Height | 190.5 cm (6' 3") | 12/25/2016 7:34 PM PDT | + + + + | Body Mass Index | 26 | 01/10/2017 9:12 AM PST | + + + + Plan of [...] | Screening | 9 | | | | (Colonoscopy) | | | | + + + + + | Vaccine: Zoster (1 | | | | | of 2) | 9 | | | + + + + + | Vaccine: | | | | | Pneumococcal 65+ | 4 | | | | Low/Medium Risk (1 | | | | | of 2 - PCV13) | | | | + + + + + | Vaccine: Influenza | | | | | (#1) | 9 | | | + + + + + Results Not on filefrom Last 3 Months Insurance + +--------+ +------+-------+ + | Payer | Benefi | Subscriber | Type | Phone | Address | | | t Plan | ID | | | | | | / | | | | | | | Group | | | | | + +--------+ +------+-------+ + | MEDICARE | MEDICA | [id number] | | | [address] | | | [place] | | | | [place] [phone] | | | IP-OP | | | | | + +--------+ +------+-------+ + | PREMERA | PREMER | [id number] | | | [address] [address] | | | A BLUE | | | | [place] | | | [place] | | | | [address] | | | FED | | | | | | | PPO | | | | | + +--------+ +------+-------+ + + +--------+ +--------+ + + | Guarantor Name | Accoun | Relation to | Date | Phone | Billing Address | | | t Type | Patient | of | | | | | | | | | | + +--------+ +--------+ + + | JANETTE RODAS | Person | Self [birth year] Home: | [address] | | | al/Fam | | 1950 | [phone] | [place] | | | [place] | | | [phone] | [phone] | + +--------+ +--------+ + +
--- OUTSIDE RECORDS SUMMARY | ~2019-01-31 | XMS | Encounter Summary ---
Demographics + + + | Address | [address] | | | [place] [address] | + + + | Home Phone | | + + + | Preferred Language | Unknown | + + + | Marital Status | | + + + | Synagogue Affiliation | 1041 | + + + | Race | Unknown | + + + | Ethnic Group | Unknown | + + + Author + + + | Author | [facility] | | | and Markana | + + + | Organization | [facility] | | | and [...] [place] | | | | | [address] | | + + + + + Care Team Providers + +------+ + | Care Fusion Operator Name | Role | Phone | + +------+ + | Manjit Roque MD | PCP | | + +------+ + Encounter Details +--------+ + + + + | Date | Type | Department | Care Team | Description | +--------+ + + + + | 01/10/ | [facility] | [facility] | Conversion | Spontaneous | | 2017 | Encounter | MEDICAL CENTER XRAY | Transaction, | pneumothorax | | | | [address] | Provider Unknown | | | | | [place], [place] | [phone] | | | | | [address] | | | | | | [phone] | Katinamavis, | | | | | | KEKE Rodriguez | | | | | | [address] | | | | | | [place], | | | | | | [place] [address] | | | | | | [phone] | | | | | | | [...] + + + +---------+ + + | [place]-3 Fatty | CAPS one by mouth 3 [...] XR CHEST 2 VIEWS | Routin | 01/10/2017 | | Results for this | | | e | 8:56 AM | | procedure are in the | | | | PST | | results section. | + +--------+ + + + documented in this encounter Results XR Chest 2 Vws (01/10/2017 8:56 AM PST) + + | Specimen | + + | | + + + + + | Impressions | Performed At | + + + | 1. No acute cardiopulmonary process. | | + + + + + + | Narrative | Performed At | + + + | JANETTE RODAS 1950 66 years Male XR CHEST 2 VIEW FRONTAL | | | AND LATERAL 01/10/2017 8:56 AM INDICATION: Follow-up of | | | spontaneous pneumothorax COMPARISON: 12/29/2016 TECHNIQUE: Two | | | view chest, PA and lateral views FINDINGS: No recurrent | | | pneumothorax is present. Some pleural thickening or fluid along the | | | right chest is unchanged. The cardiomediastinal contours are stable. | | | There is no focal airspace consolidation. 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 There is moderate | | | generalized osteopenia. | | + + + + + | Procedure Note | + + | [place], Rad Conversion - 10/10/2018 2:42 AM PDT JANETTE [id number] years MaleXR | | CHEST 2 VIEW FRONTAL AND AKFYRCP5401/10/2017 8:56 AM INDICATION: Follow-up of spontaneous | | pneumothorax COMPARISON: 12/29/2016 TECHNIQUE: Two view chest, PA and lateral views | | FINDINGS: No recurrent pneumothorax is present. Some pleural thickening or fluid along | | the right chest is unchanged. The cardiomediastinal contours are stable. There is no | | focal airspace consolidation. There is mild acromioclavicular osteoarthritis | | bilaterally. There is moderate generalized osteopenia. IMPRESSION: 1. No acute | | cardiopulmonary process. | | 9:00 AM | | | |TECHNIQUE: Two view chest, PA and lateral views | | | |FINDINGS: No recurrent pneumothorax is present. Some pleural thickening or fluid along the right chest is unchanged. The cardiomediastinal contours are stable. There is no focal airsp steffanie consolidation. There is mild acromioclavicular osteoarthritis | |bilaterally. There is moderate generalized osteopenia. | | | |IMPRESSION: | |1. No acute cardiopulmonary process. | | | | | + + documented in this encounter Visit Diagnoses + + | Diagnosis | + + | Spontaneous pneumothorax Other pneumothorax | + + documented in this encounter"
--- OUTSIDE RECORDS SUMMARY | ~2019-01-31 | XMS | Encounter Summary ---
Demographics + + + | Address | [address] | | | [place] [address] | + + + | Home Phone | | + + + | Preferred Language | Unknown | + + + | Marital Status | | + + + | Anabaptist Affiliation | 1041 | + + + | Race | Unknown | + + + | Ethnic Group | Unknown | + + + Author + + + | Author | [facility] | | | and Markana | + + + | Organization | [facility] | | | and [...] [place] | | | | | [address] | | + + + + + Care Team Providers + +------+ + | Care Shot Grinder Operator Name | Role | Phone | [...] [address] | | | | | [place], [place] | [place] | | | | | [address] | [address] | | | | | [phone] | [phone] | | | | | | | [...] TR Vmax: | | | 1.86 m/s Trend Investigator: RAMONE Authenticated by: Soumya Estrada | | [...] cmLVIDd: 5.4 cmLVPWd: 0.78 cmLVOT Area: 4.30 ip8NWHO Diam: 2.34 cm%FS: | | 21.43 %EF(Teich): [...] (A-L): 29.97 ml/m2LAAs | | A2C: 18.97 [id number] A-L A2C: 57.62 mlLALs A2C: 5.30 cmLAAs A4C: 20.50 th9PXMZI | | A-L A4C: 71.92 mlLALs A4C: 4.96 cmRAAs: 14.33 ho6LVARE A-L: 37.78 mlRAESV MOD: | | 35.89 mlRALs: 4.61 cmAV maxP.59 mmHgAV meanP.18 mmHgAV Vmax: 1.28 m/Thea | | Vmean: 0.83 m/Thea VTI: 24.54 cmAVA Vmax: 3.11 cm2AVA (VTI): 3.36 dq4FOGF Vmax: | | 0.00 cm2/m2AVAI (VTI): 0.00 cm2/m2LVOT maxP.45 mmHgLVOT meanP.68 | | mmHgLVSI Dopp: 37.25 ml/m2LVSV Dopp: 82.71 mlLVOT Vmax: 0.92 m/sLVOT Vmean: 0.61 | | m/sLVOT VTI: 19.20 cmMV A Markie: 0.65 m/sMV DecT: 242.94 msMV E Markie: 0.52 m/sMV | | E/A Ratio: 0.80MV PHT: 70.45 msMVA By PHT: 3.12 ok9Vnvxkr e': 0.04 m/sSeptal | | E/e': 10.83Lateral e': 0.06 m/sLateral E/e': 7.65RAP: 5 mmHgRVSP: 18.88 mmHgTR | | maxP.88 mmHgTR Vmax: 1.86 m/s Trend Investigator: MAREKuthenticated by: Natalie | | MershedReport Date/Time: [...] |TR Vmax: 1.86 m/s | | | |Trend Investigator: | |Authenticated by: Soumya Estrada | |Report [...]
--- OUTSIDE RECORDS SUMMARY | ~2019-01-31 | XMS | Encounter Summary ---
Demographics + + + | Address | [address] | | | [place] [address] | + + + | Home Phone | | + + + | Preferred Language | Unknown | + + + | Marital Status | | + + + | Sabianist Affiliation | 1041 | + + + | Race | Unknown | + + + | Ethnic Group | Unknown | + + + Author + + + | Author | [facility] | | | and Markana | + + + | Organization | [facility] | | | and Markana [...] [place] | | | | | [address] | | + + + + + Care Team Providers + +------+ + | Care Liberal Arts Dean Name | Role | Phone | + +------+ + | Manjit Roque MD | PCP | | + +------+ + Reason for Visit +---------+ + | Reason | Comments | +---------+ + | Results | | +---------+ + Encounter Details +--------+ + + + + | Date | Type | Department | Care Team | Description | +--------+ + + + + | 06/17/ | Telephone | [facility] | Faustino Price MD | Results | | 2012 | | GASTROENTEROLOGY | [address], [address] | | | | | [address] | [address] [place], [place] | | | | | [address] [place], [place] | [address] | | | | | [address] | | | | | | [phone] | | | +--------+ + + + [...]
--- OUTSIDE RECORDS SUMMARY | ~2019-01-31 | XMS | Encounter Summary ---
Demographics + + + | Address | [address] | | | [place] [address] | + + + | Home Phone | | + + + | Preferred Language | Unknown | + + + | Marital Status | | + + + | Lutheran Affiliation | 1041 | + + + | Race | Unknown | + + + | Ethnic Group | Unknown | + + + Author + + + | Author | [facility] | | | and Markana | + + + | Organization | [facility] | | | and Markana [...] [place] | | | | | [address] | | + + + + + Care Team Providers + +------+ + | Care Double Bottom Driver Name | Role | Phone | [...] unspecified | [address] [place], | | | | | Other | [place], [place] | [address] | | | | | symptoms | [address] [place] | [place], | | | | | involving | [place], [place] | [place] [address] | | | | | digestive | [address] | Phone: | | | | | system([phone] | Phone: | [phone] | | | | | 9) Personal | [phone] | Fax: | | | | | history of | Fax: | [phone] | | | | | colonic | [phone] | | | | | | polyps | | | | | | | Procedures | | | | | | | MS UPPER GI | | | | | | | ENDOSCOPY,DI | | | | | | | AGNOSIS MS | | | | | | | UPPER GI | | | | | | | ENDOSCOPY,BI | | | | | | | OPSY MS | | | | | | | COLONOSCOPY, | | | | | | | DIAGNOSTIC | | | | | | | MS | | | | | | | COLONOSCOPY, | | | | | | | BIOPSY MS | | | | | | | GERD TST W/ | | | | | | | MUCOS PH | | | | | | | ELECTROD MS | | | | | | | [...] + + | 04/23/ | Office | [facility] | Faustino Price MD | Chest pain, | | 2012 | Visit | GASTROENTEROLOGY | [address], [address] | unspecified (Primary | | | | [address] | [address] [place], [place] | Dx); Other symptoms | | | | [address] [place], [place] | [address] | involving digestive | | | | [address] | | system; Personal | | | | [phone] | | history of colonic | | [...] Years of Education: N/A Occupational History Retired [employer] Social History Main Topics Smoking status: Current [...]
--- OUTSIDE RECORDS SUMMARY | ~2019-01-31 | XMS | Encounter Summary ---
Demographics + + + | Address | [address] | | | [place] [address] | + + + | Home Phone | | + + + | Preferred Language | Unknown | + + + | Marital Status | | + + + | Methodist Affiliation | 1041 | + + + | Race | Unknown | + + + | Ethnic Group | Unknown | + + + Author + + + | Author | [facility] | | | and Markana | + + + | Organization | [facility] | | | and [...] [place], [place] | | | | | [address] | | + + + + + Care Team Providers + +------+ + | Care Giving Officer Name | Role | Phone | + +------+ + PCP | Unavailable | + +------+ + Encounter Details +--------+ + + + + | Date | Type | Department | Care Team | Description | +--------+ + + + + | 07/16/ | Hospital | [facility] | | | | 1991 | Encounter | MED CTR XRAY [address] | | | | | | [place] | | | | | | [place] [address] | | | | | | [phone] | | | +--------+ + + + [...]
--- OUTSIDE RECORDS SUMMARY | ~2019-01-31 | XMS | Clinical Summary ---
Demographics + + + | Address | [address] | | | [place] [address] | + + + | Home Phone | | + + + | Preferred Language | Unknown | + + + | Marital Status | | + + + | Islam Affiliation | 1041 | + + + | Race | Unknown | + + + | Ethnic Group | Unknown | + + + Author + + + | Author | [facility] (Historical as of | | | 10-12-18) | + + + | Organization | [facility] (Historical as of | | | 10-12-18) [...] Team Providers + +------+ + | Care Communication Consultant Name | Role | Phone | + [...] +------+-------+ + | MEDICARE | MEDICA | [id number] | | | [address] | | | RE | | | | [place] [address] | | | IP-OP | | | | | + +--------+ +------+-------+ + | PREMERA | PREMER | [id number] | | | [address] [address] | | | A BLUE | | | | [place] | | | [place]OSS | | | | [address] | | | FED | | | [...] | [birth year] | Home: | [address] | | | al/Fam | | 1950 | [phone] [place] | | | [place] | | | [phone] | [address] | + +--------+ +--------+ + +
--- OUTSIDE RECORDS SUMMARY | ~2019-01-31 | XMS | Encounter Summary ---
Demographics + + + | Address | [address] | | | [place] [address] | + + + | Home Phone | | + + + | Preferred Language | Unknown | + + + | Marital Status | | + + + | Presybeterian Affiliation | 1041 | + + + | Race | Unknown | + + + | Ethnic Group | Unknown | + + + Author + + + | Author | [facility] | | | and Markana | + + + | Organization | [facility] | [...] [place] | | | | | [address] | | + + + + + Care Team Providers + +------+ + | Care Wood Miller Name | Role | Phone | + +------+ + | Manjit Roque MD | PCP | | + +------+ + Encounter Details +--------+ + + + + | Date | Type | Department | Care Team | Description | +--------+ + + + + | 01/10/ | [facility] | [facility] | Conversion | Spontaneous | | 2017 | Encounter | MEDICAL CENTER XRAY | Transaction, | pneumothorax | | | | [address] | Provider Unknown | | | | | [place], [place] | [phone] | | | | | [address] | | | | | | [phone] | Katinamavis, | | | | | | KEKE Rodriguez | | | | | | [address] | | | | | | [place], | | | | | | [place] [address] | | | | | | [phone] | | | | | | | [...] + + + +---------+ + + | [place]-3 Fatty | CAPS one by mouth 3 [...] Conversion - 10/10/2018 2:42 AM PDT JANETTE [id number] years MaleXR | | CHEST 2 VIEW FRONTAL AND [id number]/10/2017 8:56 AM INDICATION: Follow-up of spontaneous | [...]
--- OUTSIDE RECORDS SUMMARY | ~2019-01-31 | XMS | Encounter Summary ---
Demographics + + + | Address | [address] | | | [place] [address] | + + + | Home Phone | | + + + | Preferred Language | Unknown | + + + | Marital Status | | + + + | Taoist Affiliation | 1041 | + + + | Race | Unknown | + + + | Ethnic Group | Unknown | + + + Author + + + | Author | [facility] | | | and Markana | + + + | Organization | [facility] | | | and [...] [place] | | | | | [address] | | + + + + + Care Team Providers + +------+ + | Care Emergency Care Attendant Name | Role | Phone | + [...] 2012 | | GASTROENTEROLOGY | [address], [address] | | | | | [address] | [address] [place], [place] | | | | | [address] [place], [place] | [address] | | | | | [address] | | | | | | [phone] | | | +--------+ + + + [...]
--- OUTSIDE RECORDS SUMMARY | ~2019-01-31 | XMS | Encounter Summary ---
Demographics + + + | Address | [address] | | | [place] [address] | + + + | Home Phone | | + + + | Preferred Language | Unknown | + + + | Marital Status | | + + + | Sabianism Affiliation | CAT | + + + | Race | White | + + + | Ethnic Group | Not or | + + + Author + + + | Author | [facility] | + + + | Organization | [facility] | + + + | Address | Unknown | + + + | Phone | Unavailable | + + + Support + + + + + | Name | Relationship | Address | Phone | + + + + + | Yancy Rodas | ECON | [address] | | | | | [place] | | | | | [address] | | + + + + + Care Team Providers + +------+ + | Care Backup Sawyer Name | Role | Phone | + [...]
--- OUTSIDE RECORDS SUMMARY | ~2019-01-31 | XMS | Encounter Summary ---
Demographics + + + | Address | [address] | | | [place] [address] | + + + | Home Phone | | + + + | Preferred Language | Unknown | + + + | Marital Status | | + + + | Uatsdin Affiliation | 1041 | + + + | Race | Unknown | + + + | Ethnic Group | Unknown | + + + Author + + + | Author | [facility] | | | and Markana | + + + | Organization | [facility] | | | and Markana | [...] [place], [place] | | | | | [address] | | + + + + + Care Team Providers + +------+ + | Care Wool Hat Hydraulicker Name | Role | Phone | + +------+ + PCP | Unavailable | + +------+ + Encounter Details +--------+ + + + + | Date | Type | Department | Care Team | Description | +--------+ + + + + | 06/16/ | [facility] | [facility] | Faustino Price MD | | | 1997 | Encounter | MED CTR GENERIC OP | [address] | | | | | CONV DEPT [address] | [address] [place] | | | | | [place], | [address] | | | | | [place] [address] | | | | | | [phone] | | | +--------+ + + + [...]
--- OUTSIDE RECORDS SUMMARY | ~2019-01-31 | XMS | Clinical Summary ---
Demographics + + + | Address | [address] | | | [place] [address] | + + + | Home Phone | | + + + | Preferred Language | Unknown | + + + | Marital Status | | + + + | Scientologist Affiliation | CAT | + + + [...] [place] | | | | | [address] | | + + + + + Care Team Providers + +------+ + | Care Foot Cutter Name | Role | Phone | + +------+ + | Rosangela Bro MD | PCP | | + +------+ + Source Comments [facility] is fully live on both [facility] and [facility] InPatient.[facility] Allergies No Known Allergies Medications + + [...] | | | | all | | [address] | | | | | | dates | | | | + +--------+ +--------+ + +--------+ | [place] | BLUE | [phone] | Effect | [phone] | [address] | PPO | | | CROSS | | jim | [address] | [address] | | | | [place] | | for | | [place], | | | | L | | all | | [place] [address] | | | | | | dates [...] | | | | | | | [address] | | + +--------+ +--------+ + +--------+ | [place] | BLUE | [phone] | 02/26/19 | [phone] | [address] | PPO | | | CROSS | | 14-Pre | [address] | [address] [address] | | | | [place] | | sent | | [place], | | | | [place] | | | | [place] [address] | | + +--------+ +--------+ + +--------+ [...] | | al/Fam | | 1950 | [phone] | [place] [address] | | | carmen | | | 2 (Home) | | + +--------+ +--------+ + + | Faustino Rodas | Person | Self | [birth year] | [address] | | | al/Fam | | 1950 | [phone] | [place] [address] | | | carmen | | | [...]
[~2019-01-31 18:12] MED LIST changes: +DAILY MULTIPLE1 EACH PO; +FISH OIL 1,0001 EAC6 PO; +IMIPRAMINE HCL25 MG PO; +NITROSTAT0.4 MG SL; +NORVASC5 MG PO; +VITAMIN D2000 UNIT PO
--- OUTSIDE RECORDS SUMMARY | 2019-01-31 18:16 | XMS ---
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 Care History Medical/Surgical 12/17/2017 [facility] - Patient is currently established with [facility]. If patient is seen in the ED during business hours. Please contact [facility] at [facility]. Care Recommendation: This patient has had 5 or more Emergency Department visits in the last 12 months.\T\nbsp; Patient requires education on the scope and purpose of the ED as an acute care provider not a Primary Care Provider and should not be utilized for chronic conditions.\T\nbsp; These are guidelines and the provider should exercise clinical judgment when providing care. E.D. VISIT COUNT (12 MO.) 1 [facility] NOTE: Visits indicate total known visits. ED/UCC VISIT TRACKING (12 MO.) 01/31/2019 18:13 [facility] TYPE: Emergency COMPLAINT: - LIP SWELLING RAPIDLY 07/16/2018 17:51 Jose COLEMAN TYPE: Emergency COMPLAINT: - FEELING OF DISCOMFORT DIAGNOSES: - Weakness - Abnormal electrocardiogram [ECG] [EKG] - Generalized hyperhidrosis - Essential (primary) hypertension - Other chest pain - Dizziness and giddiness 06/11/2018 10:[address] [facility] [place] TYPE: Emergency DIAGNOSES: - Knee Pain - Proc/trtmt not crd out d/t pt lv bef seen by [facility] care prov INPATIENT VISIT TRACKING (12 MO.) No inpatient visits to display in this time frame [id number]
[2019-01-31] MEDS ORDERED: ROSUVASTATIN CAL5 MG PO (18:33)
[2019-01-31] MEDS ORDERED: FLUTICASONE PRO16 GM NAS (18:36)
[2019-01-31] MEDS ORDERED: MEDROL4 M1 PO (20:35)
[2019-01-31] MEDS ORDERED: BENADRYL25 MG PO (20:35)
== END 2019-01-31 20:58 | disposition home or self-care (01) ==
LOC: ED 18:12
DX: T78.3XXA Angioneurotic edema, initial encounter (principal); I10 Essential (primary) hypertension; K21.9 Gastro-esophageal reflux disease without esophagitis; Z87.891 Personal history of nicotine dependence; Z88.6 Allergy status to analgesic agent; Z79.899 Other long term (current) drug therapy; Z79.82 Long term (current) use of aspirin
CPT/HCPCS: 80053; 85025; 96374; 96375; 99283-25; J1200; J2930

== ENCOUNTER 2022-08-11 22:46 | Emergency (ER) | payer MEDICARE, BC ==
[~2022-08-11] VITALS: Ht 190.5 cm; Wt 96.0 kg
[~2022-08-11 22:46] MED LIST changes: +BENADRYL25 MG PO; +FLUTICASONE PRO16 GM NAS; +MEDROL4 M1 PO; +ROSUVASTATIN CAL5 MG PO
--- OUTSIDE RECORDS SUMMARY | 2022-08-11 22:58 | XMS ---
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 Care History Medical/Surgical 02/03/2019 [facility] Patient initially went to walk in clinic.\T\nbsp; Provider said he had the flu and sent him home.\T\nbsp; Patient called his insurance company and they told him to go directly to ER.\T\nbsp; Patient has follow up with Dr. Dumas on .\T\nbsp; 12/17/2017 [facility] - Patient is currently established with [facility]. If patient is seen in the ED during business hours. Please contact CHWs at [facility]. Care Recommendation: This patient has had 5 [...] providing care. E.D. VISIT COUNT (12 MO.) 2 [place] TOTAL 2 NOTE: Visits indicate total known visits. ED/UCC VISIT TRACKING (12 MO.) 08/11/2022 22:47 [facility] [place] TYPE: Emergency COMPLAINT: - CP 10/24/2021 09:[address] [facility] [place] TYPE: Emergency COMPLAINT: - CHEST PAIN DIAGNOSES: - Allergy status to analgesic agent - Essential (primary) hypertension - Gastro-esophageal reflux disease without esophagitis - Other shelter (current) drug therapy - Personal history of nicotine dependence - Precordial pain INPATIENT VISIT TRACKING (12 MO.) No inpatient visits to display in this time frame [email or web address]
[2022-08-11] MEDS ORDERED: LOSARTAN POTAS100 MG PO (23:01)
[2022-08-12 01:19] VITALS: BP 142/68
--- NOTE | 2022-08-12 06:25 | EKG ---
[facility] [address] [place] [address] Signed Normal sinus rhythm Left axis deviation Nonspecific intraventricular block (wide QRS complex) prolonged QTc similar to previous oct 24 Confirmed by JOANNE REEVES MD ([id number]) on 08/12/2022 6:25:04 AM Electronically Signed By: JOANNE REEVES 08/12/22 0625 PATIENT NAME: JANETTE HURT Electrocardiogram DATE OF : 48 PHYSICIAN: JOANNE REEVES REPORT #: [id number] REPORT IS CONFIDENTIAL AND NOT TO BE RELEASED WITHOUT AUTHORIZATION
== END 2022-08-12 01:20 | disposition home or self-care (01) ==
LOC: ED 22:46
DX: R07.89 Other chest pain (principal); I10 Essential (primary) hypertension; Z87.891 Personal history of nicotine dependence; Z88.8 Allergy status to other drugs, medicaments and biological substances; Z79.82 Long term (current) use of aspirin; Z79.899 Other long term (current) drug therapy
CPT/HCPCS: 36415; 71045; 80053; 83735; 84484; 85025; 93005; 93010; 99285-25

== ENCOUNTER 2022-10-04 23:30 | Emergency (ER) | payer MEDICARE, BC ==
[~2022-10-04] VITALS: Ht 190.5 cm; Wt 95.7 kg
--- OUTSIDE RECORDS SUMMARY | ~2022-10-04 | XMS | Continuity of Care Document ---
Demographics + + + | Address | [address] | | | [place] [address] | + + + | Preferred Language | Unknown | + + + | Marital Status | | + + + | Zoroastrianism Affiliation | Unknown | + + + | Race | White | + + + | Ethnic Group | Not or | + + + Author + + + | Author | [facility] | + + + | Organization | [facility] | + + + | Address | [address] | | | [place] [address] | + + + | Phone | | + + + Care Team Providers + + + + | Care Die Presser Name | Role | Phone | + + + + Unavailable | Unavailable | + + + + Unavailable | Unavailable | + + + + Unavailable | Unavailable | + + + + Unavailable | Unavailable | + + + + Unavailable | Unavailable | + + + + Allergies and Intolerances + + + + + + | date | description | facility | reaction | severity | + + + + + + | (no date) | Lisinopril | [facility] | (no reaction) | (no severity) | [facility] | | | + + + + + + | (no date) | Lisinopril | [facility] | (no reaction) | (no severity) | [facility] | | | + + + + + + | (no date) | lisinopril | [facility] | (no reaction) | (no severity) | | [facility] | | | + + + + + + | (no date) | GI bleed | [facility] | (no reaction) | (no severity) | | [facility] | | | + + + + + + | (no date) | Lisinopril | [facility] | (no reaction) | (no severity) | | [facility] | | | + + + + + + | (no date) | NSAIDS | [facility] | (no reaction) | (no severity) | | | (Non-Steroidal | | | | | | Anti-Inflamma | | | | + + + + + + | (no date) | lisinopril | [facility] | (no reaction) | (no severity) | + + + + + + Encounters No information. Functional Status No information. Immunizations + + + + | date | description | facility | + + + + | 2022-08-12 00:00 | No vaccine administered | [facility] | + + + + Medications + + + + | date | description | facility | + + + + | 2021-10-24 00:00 | OXYCODONE HCL | [facility] | + + + + | 2022-08-12 00:00 | OXYCODONE HCL | [facility] | + + + + | 2022-08-12 00:00 | oxycodone hydrochloride 5 | [facility] | | | MG Oral Tablet | | + + + + | 2021-10-24 00:00 | OXYCODONE | [facility] | | | HCL/ACETAMINOPHEN | | + + + + | 2022-08-12 00:00 | OXYCODONE | [facility] | | | HCL/ACETAMINOPHEN | | + + + + | 2022-08-12 00:00 | acetaminophen 325 MG / | [facility] | | | oxycodone hydrochloride 5 | | | | MG Oral Tab | | + + + + | 2019-01-31 00:00 | DIPHENHYDRAMINE HCL | [facility] | + + + + | 2021-10-24 00:00 | FLUTICASONE PROPIONATE 50 | [facility] | | | MCG | | + + + + | 2021-10-24 00:00 | ATENOLOL | [facility] | + + + + | 2022-08-12 00:00 | ATENOLOL | [facility] | + + + + | 2022-08-12 00:00 | atenolol 50 MG Oral Tablet | [facility] | | | | | + + + + | 2021-10-24 00:00 | LISINOPRIL | [facility] | + + + + | 2022-08-12 00:00 | LISINOPRIL | [facility] | + + + + | 2022-08-12 00:00 | lisinopril 40 MG Oral | [facility] | | | Tablet | | + + + + | 2021-10-24 00:00 | SIMVASTATIN | [facility] | + + + + | 2022-08-12 00:00 | SIMVASTATIN | [facility] | + + + + | 2022-08-12 00:00 | simvastatin 40 MG Oral | [facility] | | | Tablet | | + + + + | 2021-10-24 00:00 | OMEPRAZOLE | [facility] | + + + + | 2022-08-12 00:00 | OMEPRAZOLE | [facility] | + + + + | 2022-08-12 00:00 | omeprazole 20 MG Delayed | [facility] | | | Release Oral Capsule | | | | [Prilosec] | | + + + + | 2021-10-24 00:00 | NITROGLYCERIN | [facility] | + + + + | 2022-08-12 00:00 | NITROGLYCERIN | [facility] | + + + + | 2022-08-12 00:00 | nitroglycerin 0.4 MG | [facility] | | | Sublingual Tablet | | | | [Nitrostat] | | + + + + | 2021-10-24 00:00 | AMLODIPINE BESYLATE | [facility] | + + + + | 2022-08-12 00:00 | AMLODIPINE BESYLATE | [facility] | + + + + | 2022-08-12 00:00 | amlodipine 5 MG Oral | [facility] | | | Tablet [Norvasc] | | + + + + | 2021-10-24 00:00 | MELATONIN | [facility] | + + + + | 2021-10-24 00:00 | ASPIRIN | [facility] | + + + + | 2022-08-12 00:00 | ASPIRIN | [facility] | + + + + | 2022-08-12 00:00 | aspirin 81 MG Delayed | [facility] | | | Release Oral Tablet | | + + + + | 2021-10-24 00:00 | LISINOPRIL | [facility] | + + + + | 2021-10-24 00:00 | GUILHERME WOO. | [facility] | | | 0.05% | | + + + + | 2022-08-12 00:00 | CYCLOSPORINE OPTH. WOO. | [facility] | | | 0.05% | | + + + + | 2022-08-12 00:00 | cyclosporine 0.5 MG/ML | [facility] | | | Ophthalmic Suspension | | | | [Restasis] | | + + + + | 2021-10-24 00:00 | CHOLECALCIFEROL (VITAMIN | [facility] | | | D3) | | + + + + | 2022-08-12 00:00 | CHOLECALCIFEROL (VITAMIN | [facility] | | | D3) | | + + + + | 2022-08-12 00:00 | cholecalciferol 0.05 MG | [facility] | | | Oral Capsule | | + + + + | 2021-10-24 00:00 | CYCLOBENZAPRINE HCL | [facility] | + + + + | 2022-08-12 00:00 | CYCLOBENZAPRINE HCL | [facility] | + + + + | 2022-08-12 00:00 | cyclobenzaprine | [facility] | | | hydrochloride 5 MG Oral | | | | Tablet | | + + + + | 2021-10-24 00:00 | DILTIAZEM HCL | [facility] | + + + + | 2022-08-12 00:00 | DILTIAZEM HCL | [facility] | + + + + | 2022-08-12 00:00 | diltiazem hydrochloride 60 | [facility] | | | MG Oral Tablet | | + + + + | 2019-01-31 00:00 | methylPREDNISolone | [facility] | + + + + | 2021-10-24 00:00 | IMIPRAMINE HCL | [facility] | + + + + | 2022-08-12 00:00 | IMIPRAMINE HCL | [facility] | + + + + | 2022-08-12 00:00 | imipramine hydrochloride | [facility] | | | 25 MG Oral Tablet | | + + + + | 2021-10-24 00:00 | Rosuvastatin Calcium | [facility] | + + + + | 2022-08-12 00:00 | Rosuvastatin Calcium | [facility] | + + + + | 2022-08-12 00:00 | rosuvastatin calcium 5 MG | [facility] | | | Oral Tablet | | + + + + | 2022-08-12 00:00 | LOSARTAN POTASSIUM | [facility] | + + + + | 2022-08-12 00:00 | losartan potassium 100 MG | [facility] | | | Oral Tablet | | + + + + | 2021-10-24 00:00 | ACETAMINOPHEN WITH CODEINE | [facility] | | | | | + + + + | 2022-08-12 00:00 | ACETAMINOPHEN WITH CODEINE | [facility] | | | | | + + + + | 2022-08-12 00:00 | acetaminophen 300 MG / | [facility] | | | codeine phosphate 30 MG | | | | Oral Tablet | | + + + + Problems + + + + | date | description | facility | + + + + | 2015-01-26 00:00 | Chest pain at rest | [facility] | + + + + | 2015-01-26 00:00 | Chest pain at rest | [facility] | + + + + | 2015-01-26 00:00 | Chest pain at rest | [facility] | + + + + | 2016-12-25 00:00 | Pneumothorax on right | [facility] | + + + + | 2016-12-25 00:00 | Pneumothorax on right | [facility] | + + + + | 2016-12-25 00:00 | Pneumothorax on right | [facility] | + + + + | 2017-04-30 00:00 | Laceration | [facility] | + + + + | 2017-04-30 00:00 | Laceration | [facility] | + + + + | 2017-04-30 00:00 | Laceration | [facility] | + + + + | 2017-12-15 00:00 | Acute epigastric pain | [facility] | + + + + | 2017-12-15 00:00 | Acute epigastric pain | [facility] | + + + + | 2017-12-15 00:00 | Acute epigastric pain | [facility] | + + + + | 2019-01-31 00:00 | Angioedema of lips | [facility] | + + + + | 2019-01-31 00:00 | Angioedema of lips | [facility] | + + + + | 2019-01-31 00:00 | Angioedema of lips | [facility] | + + + + | 2021-10-24 00:00 | Nonspecific chest pain | [facility] | + + + + | 2021-10-24 00:00 | Nonspecific chest pain | [facility] | + + + + | 2021-10-24 00:00 | Nonspecific chest pain | [facility] | + + + + | 2022-05-30 00:01 | OTHER SPECIFIED JOINT | [facility] | | | DISORDERS, LEFT HIP | | + + + + | 2022-06-28 07:22 | OTHER SPECIFIED JOINT | [facility] | | | DISORDERS, LEFT HIP | | + + + + | 2022-07-12 13:28 | UMBILICAL HERNIA WITHOUT | [facility] | | | OBSTRUCTION OR GANGRENE | | + + + + | 2022-07-12 13:28 | UNSPECIFIED ABDOMINAL | [facility] | | | HERNIA WITHOUT OBSTRUCTION | | | | OR GANGRENE | | + + + + | 2022-08-11 22:47 | Essential (primary) | [facility] | | | hypertension | | + + + + | 2022-08-11 22:47 | OTHER CHEST PAIN | [facility] | + + + + | 2022-08-11 22:47 | DETENTION (CURRENT) USE OF | [facility] | | | ASPIRIN | | + + + + | 2022-08-11 22:47 | 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 Results/Labs +--------+--------+ +---------+--------+---------+ | test | date | facility | value | unit | notes | +--------+--------+ +---------+--------+---------+ + + | Result panel 1 | + + + + + +-------+ + + | | 2021-10-24 | [facility] | 0.5 | (missing) | (missing) | | (unavailable [facility]:19 [facility] | | | | + + + +-------+ + + + + | Result panel 2 | + + + + + +------+ + + | | 2021-10-24 | [facility] | 41 | (missing) | (missing) | | (unavailable | 09:19 [facility] | | | | + + + +------+ + + + + | Result panel 3 | + + + + + +------+ + + | | 2021-10-24 | [facility] | 54 | (missing) | (missing) | | (unavailable | 09:19 [facility] | | | | + + + +------+ + + + + | Result panel 4 | + + + + + +------+ + + | | 2021-10-24 | [facility] | 57 | (missing) | (missing) | | (unavailable | 09:19 [facility] | | | | + + + +------+ + + + + | Result panel 5 | + + + + + +-------+ + + | | 2021-10-24 | [facility] | 8.8 | (missing) | (missing) | | (unavailable | 09:19 [facility] | | | | + + + +-------+ + + + + | Result panel 6 | + + + + + +--------+ + + | | 2021-10-24 | [facility] | 4.86 | (missing) | (missing) | | (unavailable | 09:19 [facility] | | | | + + + +--------+ + + + + | Result panel 7 | + + + + + +--------+ + + | | 2021-10-24 | [facility] | 15.4 | (missing) | (missing) | | (unavailable | 09:19 [facility] | | | | + + + +--------+ + + + + | Result panel 8 | + + + + + +--------+ + + | | 2021-10-24 | [facility] | 44.8 | (missing) | (missing) | | (unavailable | 09:19 [facility] | | | | + + + +--------+ + + + + | Result panel 9 | + + + + + +--------+ + + | | 2021-10-24 | [facility] | 92.2 | (missing) | (missing) | | (unavailable | 09:19 [facility] | | | | + + + +--------+ + + + + | Result panel 10 | + + + + + +--------+ + + | | 2021-10-24 | [facility] | 31.7 | (missing) | (missing) | | (unavailable | 09:19 [facility] | | | | + + + +--------+ + + + + | Result panel 11 | + + + + + +--------+ + + | | 2021-10-24 | [facility] | 34.4 | (missing) | (missing) | | (unavailable | 09:19 [facility] | | | | + + + +--------+ + + + + | Result panel 12 | + + + + + +--------+ + + | | 2021-10-24 | [facility] | 13.7 | (missing) | (missing) | | (unavailable | 09:19 [facility] | | | | + + + +--------+ + + + + | Result panel 13 | + + + + + +-------+ + + | | 2021-10-24 | [facility] | 352 | (missing) | (missing) | | (unavailable | 09:19 [facility] | | | | + + + +-------+ + + + + | Result panel 14 | + + + + + +--------+ + + | | 2021-10-24 | [facility] | 49.4 | (missing) | (missing) | | (unavailable | 09:19 [facility] | | | | + + + +--------+ + + + + | Result panel 15 | + + + + + +--------+ + + | | 2021-10-24 | [facility] | 36.3 | (missing) | (missing) | | (unavailable | 09:19 [facility] | | | | + + + +--------+ + + + + | Result panel 16 | + + + + + +--------+ + + | | 2021-10-24 | [facility] | 10.8 | (missing) | (missing) | | (unavailable | 09:19 [facility] | | | | + + + +--------+ + + + + | Result panel 17 | + + + + + +-------+ + + | | 2021-10-24 | [facility] | 2.3 | (missing) | (missing) | | (unavailable | 09:19 [facility] | | | | + + + +-------+ + + + + | Result panel 18 | + + + + + +-------+ + + | | 2021-10-24 | [facility] | 1.2 | (missing) | (missing) | | (unavailable | 09:19 [facility] | | | | + + + +-------+ + + + + | Result panel 19 | + + + + + +--------+ + + | | 2021-10-24 | [facility] | 26.8 | (missing) | (missing) | | (unavailable | 09:19 [facility] | | | | + + + +--------+ + + + + | Result panel 20 | + + + + + +-------+---------+ + | | 2021-10-24 | [facility] | 130 | mg/dL | (missing) | | (unavailable | 09:19 [facility] | | | | + + + +-------+---------+ + + + | Result panel 21 | + + + + + +------+---------+ + | | 2021-10-24 | [facility] | 17 | mg/dL | (missing) | | (unavailable | 09:19 [facility] | | | | + + + +------+---------+ + + + | Result panel 22 | + + + + + +--------+---------+ + | | 2021-10-24 | [facility] | 1.26 | mg/dL | (missing) | | (unavailable | 09:19 [facility] | | | | + + + +--------+---------+ + + + | Result panel 23 | + + + + + +------+ + + | | 2021-10-24 | [facility] | 61 | (missing) | (missing) | | (unavailable | 09:19 [facility] | | | | + + + +------+ + + + + | Result panel 24 | + + + + + +---------+ + + | | 2021-10-24 | [facility] | 13.49 | (missing) | (missing) | | (unavailable | 09:19 [facility] | | | | + + + +---------+ + + + + | Result panel 25 | + + + + + +-------+ + + | | 2021-10-24 | [facility] | 138 | (missing) | (missing) | | (unavailable | 09:19 [facility] | | | | + + + +-------+ + + + + | Result panel 26 | + + + + + +-------+ + + | | 2021-10-24 | [facility] | 3.3 | (missing) | (missing) | | (unavailable | 09:19 [facility] | | | | + + + +-------+ + + + + | Result panel 27 | + + + + + +-------+ + + | | 2021-10-24 | [facility] | 100 | (missing) | (missing) | | (unavailable | 09:19 [facility] | | | | + + + +-------+ + + + + | Result panel 28 | + + + + + +------+ + + | | 2021-10-24 | [facility] | 24 | (missing) | (missing) | | (unavailable | 09:19 [facility] | | | | + + + +------+ + + + + | Result panel 29 | + + + + + +--------+ + + | | 2021-10-24 | [facility] | 17.3 | (missing) | (missing) | | (unavailable | 09:19 [facility] | | | | + + + +--------+ + + + + | Result panel 30 | + + + + + +-------+---------+ + | | 2021-10-24 | [facility] | 9.1 | mg/dL | (missing) | | (unavailable | 09:19 [facility] | | | | + + + +-------+---------+ + + + | Result panel 31 | + + + + + +-------+ + + | | 2021-10-24 | [facility] | 8.1 | (missing) | (missing) | | (unavailable | 09:19 [facility] | | | | + + + +-------+ + + + + | Result panel 32 | + + + + + +-------+ + + | | 2021-10-24 | [facility] | 4.2 | (missing) | (missing) | | (unavailable | 09:19 [facility] | | | | + + + +-------+ + + + + | Result panel 33 | + + + + + +-------+ + + | | 2021-10-24 | [facility] | 3.9 | (missing) | (missing) | | (unavailable | 09:19 [facility] | | | | + + + +-------+ + + + + | Result panel 34 | + + + + + +--------+ + + | | 2021-10-24 | [facility] | 1.08 | (missing) | (missing) | | (unavailable | 09:19 [facility] | | | | + + + +--------+ + + + + | Result panel 35 | + + + + + +--------+ + + | | 2021-10-24 | [facility] | 32.5 | (missing) | (missing) | | (unavailable | 11:20 [facility] | | | | + + + +--------+ + + + + | Result panel 36 | + + + + + +-------+ + + | Automated | 2022-08-11 | [facility] | 321 | (missing) | (missing) | | blood | 22:55 | [facility] | | | platelet | | Hospital | | | | | count | | | | | | | (count/volum | | | | | | | e) | | | | | | + + + +-------+ + + + + | Result panel 37 | + + + + + +--------+ + + | Automated | 2022-08-11 | [facility] | 61.6 | (missing) | (missing) | | blood | 22:55 | [facility] | | | neutrophil | | Hospital | | | | | count as | | | | | | | percentage | | | | | | | of total | | | | | | | leukocytes | | | | | | + + + +--------+ + + + + | Result panel 38 | + + + + + +--------+ + + | Automated | 2022-08-11 | [facility] | 25.9 | (missing) | (missing) | | blood | 22:55 | [facility] | | | lymphocyte | | Hospital | | | | | count as | | | | | | | percentage | | | | | | | ot total | | | | | | | leukocytes | | | | | | + + + +--------+ + + + + | Result panel 39 | + + + + + +--------+ + + | Automated | 2022-08-11 | [facility] | 10.4 | (missing) | (missing) | | blood | 22:55 | [facility] | | | | monocyte | | Hospital | | | | | count as | | | | | | | percentage | | | | | | | of total | | | | | | | leukocytes | | | | | | + + + +--------+ + + + + | Result panel 40 | + + + + + +-------+ + + | Automated | 2022-08-11 | [facility] | 1.7 | (missing) | (missing) | | blood | 22:55 | [facility] | | | | eosinophil | | Hospital | | | | | count as | | | | | | | percentage | | | | | | | of total | | | | | | | leukocytes | | | | | | + + + +-------+ + + + + | Result panel 41 | + + + + + +-------+ + + | Automated | 2022-08-11 | [facility] | 0.4 | (missing) | (missing) | | blood | 22:55 | [facility] | | | | basophil | | Hospital | | | | | count as | | | | | | | percentage | | | | | | | of total | | | | | | | leukocytes | | | | | | + + + +-------+ + + + + | Result panel 42 | + + + + + +-------+ + + | Serum or | 2022-08-11 | [facility] | 129 | (missing) | (missing) | | plasma | 22:55 | [facility] | | | glucose | | Hospital | | | | | measurement | | | | | | | (mass/volume | | | | | | | ) | | | | | | + + + +-------+ + + + + | Result panel 43 | + + + + + +------+ + + | Serum or | 2022-08-11 | [facility] | 18 | (missing) | (missing) | | plasma urea | 22:55 | [facility] | | | | nitrogen | | Hospital | | | | | measurement | | | | | | | (mass/volume | | | | | | | ) | | | | | | + + + +------+ + + + + | Result panel 44 | + + + + + +--------+ + + | Serum or | 2022-08-11 | [facility] | 1.33 | (missing) | (missing) | | plasma | 22:55 | [facility] | | | creatinine | | Hospital | | | | | measurement | | | | | | | (mass/volume | | | | | | | ) | | | | | | + + + +--------+ + + + + | Result panel 45 | + + + + + +------+ + + | Glomerular | 2022-08-11 | [facility] | 56 | (missing) | (missing) | | filtration | 22:55 | [facility] | | | | | rate/1.73 sq | | Hospital | | | | | M.predicted | | | | | | | [Volume | | | | | | | Rate/Area] | | | | | | | inSerum, | | | | | | | Plasma or | | | | | | | Blood by | | | | | | | Creatinine-b | | | | | | | ased formula | | | | | | | (CKD-EPI | | | | | | | 2020) | | | | | | + + + +------+ + + + + | Result panel 46 | + + + + + +-------+ + + | Blood | 2022-08-11 | [facility] | 8.5 | (missing) | (missing) | | leukocytes | 22:55 | [facility] | | | | automated | | Hospital | | | | | count | | | | | | | (number/volu | | | | | | | me) | | | | | | + + + +-------+ + + + + | Result panel 47 | + + + + + +---------+ + + | Serum or | 2022-08-11 | [facility] | 13.53 | (missing) | (missing) | | plasma urea | 22:55 | [facility] | | | | nitrogen/cre | | Hospital | | | | | atinine mass | | | | | | | ratio | | | | | | + + + +---------+ + + + + | Result panel 48 | + + + + + +-------+ + + | Serum or | 2022-08-11 | [facility] | 140 | (missing) | (missing) | | plasma | 22:55 | [facility] | | | | sodium | | Hospital | | | | | measurement | | | | | | | (moles/volum | | | | | | | e) | | | | | | + + + +-------+ + + + + | Result panel 49 | + + + + + +-------+ + + | Serum or | 2022-08-11 | [facility] | 3.5 | (missing) | (missing) | | plasma | 22:55 | [facility] | | | | potassium | | Hospital | | | | | measurement | | | | | | | (moles/volum | | | | | | | e) | | | | | | + + + +-------+ + + + + | Result panel 50 | + + + + + +-------+ + + | Serum or | 2022-08-11 | [facility] | 102 | (missing) | (missing) | | plasma | 22:55 | [facility] | | | | chloride | | Hospital | | | | | measurement | | | | | | | (moles/volum | | | | | | | e) | | | | | | + + + +-------+ + + + + | Result panel 51 | + + + + + +------+ + + | Serum or | 2022-08-11 | [facility] | 25 | (missing) | (missing) | | plasma | 22:55 | [facility] | | | | carbon | | Hospital | | | | | dioxide, | | | | | | | total | | | | | | | measurement | | | | | | | (moles/volum | | | | | | | e) | | | | | | + + + +------+ + + + + | Result panel 52 | + + + + + +--------+ + + | Serum or | 2022-08-11 | [facility] | 16.5 | (missing) | (missing) | | plasma anion | 22:55 | [facility] | | | | gap 4 | | Hospital | | | | + + + +--------+ + + + + | Result panel 53 | + + + + + +-------+ + + | Serum or | 2022-08-11 | [facility] | 8.7 | (missing) | (missing) | | plasma | 22:55 | [facility] | | | | calcium | | Hospital | | | | | measurement | | | | | | | (mass/volume | | | | | | | ) | | | | | | + + + +-------+ + + + + | Result panel 54 | + + + + + +-------+ + + | Serum or | 2022-08-11 | [facility] | 2.0 | (missing) | (missing) | | plasma | 22:55 | [facility] | | | | magnesium | | Hospital | | | | | measurement | | | | | | | (mass/volume | | | | | | | ) | | | | | | + + + +-------+ + + + + | Result panel 55 | + + + + + +-------+ + + | Serum or | 2022-08-11 | [facility] | 7.7 | (missing) | (missing) | | plasma | 22:55 | [facility] | | | | protein | | Hospital | | | | | measurement | | | | | | | (mass/volume | | | | | | | ) | | | | | | + + + +-------+ + + + + | Result panel 56 | + + + + + +-------+ + + | Serum or | 2022-08-11 | [facility] | 4.1 | (missing) | (missing) | | plasma | 22:55 | [facility] | | | | albumin | | [facility] | | | | | measurement | | | | | | | (mass/volume | | | | | | | ) | | | | | | + + + +-------+ + + + + | Result panel 57 | + + + + + +--------+ + + | Blood | 2022-08-11 | [facility] | 4.63 | (missing) | (missing) | | erythrocytes | 22:55 | [facility] | | | | automated | | [facility] | | | | | count | | | | | | | (number/volu | | | | | | | me) | | | | | | + + + +--------+ + + + + | Result panel 58 | + + + + + +-------+ + + | Serum | 2022-08-11 | [facility] | 3.6 | (missing) | (missing) | | globulin | 22:55 | [facility] | | | | measurement | | [facility] | | | | | (mass/volume | | | | | | | ) | | | | | | + + + +-------+ + + + + | Result panel 59 | + + + + + +--------+ + + | Serum or | 2022-08-11 | [facility] | 1.14 | (missing) | (missing) | | plasma | 22:55 | [facility] | | | | | albumin/glob | | Hospital | | | | | ulin mass | | | | | | | ratio | | | | | | + + + +--------+ + + + + | Result panel 60 | + + + + + +-------+ + + | Serum or | 2022-08-11 | [facility] | 0.3 | (missing) | (missing) | | plasma total | 22:55 | [facility] | | | | bilirubin | | Hospital | | | | | measurement | | | | | | | (mass/volume | | | | | | | ) | | | | | | + + + +-------+ + + + + | Result panel 61 | + + + + + +------+ + + | Serum or | 2022-08-11 | [facility] | 93 | (missing) | (missing) | | plasma | 22:55 | [facility] | | | | | aspartate | | Hospital | | | | | aminotransfe | | | | | | | rase | | | | | | | measurement | | | | | | | (enzymatic | | | | | | | activity/vol | | | | | | | ume) | | | | | | + + + +------+ + + + + | Result panel 62 | + + + + + +------+ + + | Serum or | 2022-08-11 | [facility] | 79 | (missing) | (missing) | | plasma | 22:55 | [facility] | | | | | alanine | | Hospital | | | | | aminotransfe | | | | | | | rase | | | | | | | measurement | | | | | | | (enzymatic | | | | | | | activity/vol | | | | | | | ume) | | | | | | + + + +------+ + + + + | Result panel 63 | + + + + + +------+ + + | Serum or | 2022-08-11 | [facility] | 62 | (missing) | (missing) | | plasma | 22:55 | [facility] | | | | | alkaline | | Hospital | | | | | phosphatase | | | | | | | measurement | | | | | | | (enzymatic | | | | | | | activity/vol | | | | | | | ume) | | | | | | + + + +------+ + + + + | Result panel 64 | + + + + + +--------+ + + | Blood | 2022-08-11 | [facility] | 14.4 | (missing) | (missing) | | hemoglobin | 22:55 | [facility] | | | | | measurement | | [facility] | | | | | (mass/volume | | | | | | | ) | | | | | | + + + +--------+ + + + + | Result panel 65 | + + + + + +--------+ + + | Automated | 2022-08-11 | [facility] | 42.6 | (missing) | (missing) | | blood | 22:55 | [facility] | | | | hematocrit | | Hospital | | | | + + + +--------+ + + + + | Result panel 66 | + + + + + +--------+ + + | Automated | 2022-08-11 | [facility] | 91.9 | (missing) | (missing) | | erythrocyte | 22:55 | [facility] | | | | | mean | | Hospital | | | | | corpuscular | | | | | | | volume | | | | | | + + + +--------+ + + + + | Result panel 67 | + + + + + +--------+ + + | Automated | 2022-08-11 | [facility] | 31.1 | (missing) | (missing) | | erythrocyte | 22:55 | [facility] | | | | | mean | | Hospital | | | | | corpuscular | | | | | | | hemoglobin | | | | | | | (mass per | | | | | | | erythrocyte) | | | | | | | | | | | | | + + + +--------+ + + + + | Result panel 68 | + + + + + +--------+ + + | Automated | 2022-08-11 | [facility] | 33.9 | (missing) | (missing) | | erythrocyte | 22:55 | [facility] | | | | | mean | | Hospital | | | | | corpuscular | | | | | | | hemoglobin | | | | | | | concentratio | | | | | | | n | | | | | | | measurement | | | | | | | (mass/volume | | | | | | | ) | | | | | | + + + +--------+ + + + + | Result panel 69 | + + + + + +--------+ + + | Automated | 2022-08-11 | [facility] | 13.7 | (missing) | (missing) | | erythrocyte | 22:55 | [facility] | | | | | distribution | | Hospital | | | | | width | | | | | | + + + +--------+ + + + + | Result panel 70 | + + + + + +-------+ + + | | 2022-08-11 | [facility] | 8.5 | (missing) | (missing) | | (unavailable | 22:55:07 | [facility] | | | | + + + +-------+ + + + + | Result panel 71 | + + + + + +--------+ + + | | 2022-08-11 | [facility] | 4.63 | (missing) | (missing) | | (unavailable | 22:55:07 | [facility] | | | | + + + +--------+ + + + + | Result panel 72 | + + + + + +--------+ + + | | 2022-08-11 | [facility] | 14.4 | (missing) | (missing) | | (unavailable | 22:55:07 | [facility] | | | | + + + +--------+ + + + + | Result panel 73 | + + + + + +--------+ + + | | 2022-08-11 | [facility] | 42.6 | (missing) | (missing) | | (unavailable | 22:55:07 | [facility] | | | | + + + +--------+ + + + + | Result panel 74 | + + + + + +--------+ + + | | 2022-08-11 | [facility] | 91.9 | (missing) | (missing) | | (unavailable | 22:55:07 | [facility] | | | | + + + +--------+ + + + + | Result panel 75 | + + + + + +--------+ + + | | 2022-08-11 | [facility] | 31.1 | (missing) | (missing) | | (unavailable | 22:55:07 [facility] | | | | + + + +--------+ + + + + | Result panel 76 | + + + + + +--------+ + + | | 2022-08-11 | [facility] | 33.9 | (missing) | (missing) | | (unavailable | 22:55:07 | [facility] | | | | + + + +--------+ + + + + | Result panel 77 | + + + + + +--------+ + + | | 2022-08-11 | [facility] | 13.7 | (missing) | (missing) | | (unavailable | 22:55:07 | [facility] | | | | + + + +--------+ + + + + | Result panel 78 | + + + + + +-------+ + + | | 2022-08-11 | [facility] | 321 | (missing) | (missing) | | (unavailable | 22:55:07 | [facility] | | | | + + + +-------+ + + + + | Result panel 79 | + + + + + +--------+ + + | | 2022-08-11 | [facility] | 61.6 | (missing) | (missing) | | (unavailable | 22:55:07 | [facility] | | | | + + + +--------+ + + + + | Result panel 80 | + + + + + +--------+ + + | | 2022-08-11 | [facility] | 25.9 | (missing) | (missing) | | (unavailable | 22:55:07 | [facility] | | | | + + + +--------+ + + + + | Result panel 81 | + + + + + +--------+ + + | | 2022-08-11 | [facility] | 10.4 | (missing) | (missing) | | (unavailable | 22:55:07 | [facility] | | | | + + + +--------+ + + + + | Result panel 82 | + + + + + +-------+ + + | | 2022-08-11 | [facility] | 1.7 | (missing) | (missing) | | (unavailable | 22:55:07 | [facility] | | | | + + + +-------+ + + + + | Result panel 83 | + + + + + +-------+ + + | | 2022-08-11 | [facility] | 0.4 | (missing) | (missing) | | (unavailable | 22:55:07 | [facility] | | | | + + + +-------+ + + + + | Result panel 84 | + + + + + +-------+---------+ + | | 2022-08-11 | [facility] | 129 | mg/dL | (missing) | | (unavailable | 22:55:07 | [facility] | | | | + + + +-------+---------+ + + + | Result panel 85 | + + + + + +------+---------+ + | | 2022-08-11 | [facility] | 18 | mg/dL | (missing) | | (unavailable | 22:55:07 [facility] | | | | + + + +------+---------+ + + + | Result panel 86 | + + + + + +--------+---------+ + | | 2022-08-11 | [facility] | 1.33 | mg/dL | (missing) | | (unavailable | 22:55:07 [facility] | | | | + + + +--------+---------+ + + + | Result panel 87 | + + + + + +------+ + + | | 2022-08-11 | [facility] | 56 | (missing) | (missing) | | (unavailable | 22:55:07 [facility] | | | | + + + +------+ + + + + | Result panel 88 | + + + + + +---------+ + + | | 2022-08-11 | [facility] | 13.53 | (missing) | (missing) | | (unavailable | 22:55:07 [facility] | | | | + + + +---------+ + + + + | Result panel 89 | + + + + + +-------+ + + | | 2022-08-11 | [facility] | 140 | (missing) | (missing) | | (unavailable | 22:55:07 [facility] | | | | + + + +-------+ + + + + | Result panel 90 | + + + + + +-------+ + + | | 2022-08-11 | [facility] | 3.5 | (missing) | (missing) | | (unavailable | 22:55:07 [facility] | | | | + + + +-------+ + + + + | Result panel 91 | + + + + + +-------+ + + | | 2022-08-11 | [facility] | 102 | (missing) | (missing) | | (unavailable | 22:55:07 | [facility] | | | | + + + +-------+ + + + + | Result panel 92 | + + + + + +------+ + + | | 2022-08-11 | [facility] | 25 | (missing) | (missing) | | (unavailable | 22:55:07 [facility] | | | | + + + +------+ + + + + | Result panel 93 | + + + + + +--------+ + + | | 2022-08-11 | [facility] | 16.5 | (missing) | (missing) | | (unavailable | 22:55:07 [facility] | | | | + + + +--------+ + + + + | Result panel 94 | + + + + + +-------+---------+ + | | 2022-08-11 | [facility] | 8.7 | mg/dL | (missing) | | (unavailable | :55:07 | [facility] | | | | + + + +-------+---------+ + + + | Result panel 95 | + + + + + +-------+---------+ + | | 2022-08-11 | [facility] | 2.0 | mg/dL | (missing) | | (unavailable | 22:55:07 | [facility] | | | | + + + +-------+---------+ + + + | Result panel 96 | + + + + + +-------+ + + | | 2022-08-11 | [facility] | 7.7 | (missing) | (missing) | | (unavailable | 22:55:07 [facility] | | | | + + + +-------+ + + + + | Result panel 97 | + + + + + +-------+ + + | | 2022-08-11 | [facility] | 4.1 | (missing) | (missing) | | (unavailable | 22:55:07 [facility] | | | | + + + +-------+ + + + + | Result panel 98 | + + + + + +-------+ + + | | 2022-08-11 | [facility] | 3.6 | (missing) | (missing) | | (unavailable | 22:55:07 [facility] | | | | + + + +-------+ + + + + | Result panel 99 | + + + + + +--------+ + + | | 2022-08-11 | [facility] | 1.14 | (missing) | (missing) | | (unavailable | 22:55:07 [facility] | | | | + + + +--------+ + + + + | Result panel 100 | + + + + + +-------+ + + | | 2022-08-11 | [facility] | 0.3 | (missing) | (missing) | | (unavailable | 22:55:07 [facility] | | | | + + + +-------+ + + + + | Result panel 101 | + + + + + +------+ + + | | 2022-08-11 | [facility] | 93 | (missing) | (missing) | | (unavailable | 22:55:07 [facility] | | | | + + + +------+ + + + + | Result panel 102 | + + + + + +------+ + + | | 2022-08-11 | [facility] | 79 | (missing) | (missing) | | (unavailable | 22:55:07 | [facility] | | | | + + + +------+ + + + + | Result panel 103 | + + + + + +------+ + + | | 2022-08-11 | [facility] | 62 | (missing) | (missing) | | (unavailable | 22:55:07 [facility] | | | | + + + +------+ + + + + | Result panel 104 | + + + + + +--------+ + + | | 2022-08-12 | [facility] | 13.1 | (missing) | (missing) | | (unavailable | 00:33:07 | [facility] | | | | + + + +--------+ + + + + | Serum or plasma cardiac troponin I measurement by high senstivity method (mass/volume) | + + + + + +--------+ + + | Serum or | 2022-08-12 | [facility] | 13.1 | (missing) | (missing) | | plasma | 00:33 | [facility] | | | | cardiac | | Hospital | | | | | troponin I | | | | | | | measurement | | | | | | | by high | | | | | | | senstivity | | | | | | | method | | | | | | | (mass/volume | | | | | | | ) | | | | | | + + + +--------+ + + Social History + + + + | date | description | facility | + + + + | 2022-08-12 00:00 | Former smoker | [facility] | + + + + Vital Signs + + + +---------+ | date | measurement | value | units | + + + +---------+ | 2021-10-24 00:00 | BMI | 26.5 | kg/m2 | + + + +---------+ | 2021-10-24 00:00 | BP_diastolic | 73 | mmHg | + + + +---------+ | 2021-10-24 00:00 | BP_systolic | 162 | mmHg | + + + +---------+ | 2021-10-24 00:00 | heart_rate | 54 | /min | + + + +---------+ | 2021-10-24 00:00 | height_metric | 190.5 | cm | + + + +---------+ | 2021-10-24 00:00 | height_standard | 75 | in | + + + +---------+ | 2021-10-24 00:00 | o2_saturation | 99 | % | + + + +---------+ | 2021-10-24 00:00 | respiration_rate | 16 | /min | + + + +---------+ | 2021-10-24 00:00 | temperature_metric | 36.89 | C | | | | | | + + + +---------+ | 2021-10-24 00:00 | | 98.4 | F | | | temperature_standar | | | | | d | | | + + + +---------+ | 2021-10-24 00:00 | weight_metric | 96.16 | kg | + + + +---------+ | 2021-10-24 00:00 | weight_standard | 212 | lb | + + + +---------+ | 2022-08-11 00:00 | BMI | 26.5 | kg/m2 | + + + +---------+ | 2022-08-11 00:00 | height_metric | 190.5 | cm | + + + +---------+ | 2022-08-11 00:00 | height_standard | 75 | in | + + + +---------+ | 2022-08-11 00:00 | weight_metric | 96 | kg | + + + +---------+ | 2022-08-11 00:00 | weight_standard | 211.64 | lb | + + + +---------+ | 2022-08-12 00:00 | BP_diastolic | 68 | mmHg | + + + +---------+ | 2022-08-12 00:00 | BP_systolic | 142 | mmHg | + + + +---------+ | 2022-08-12 00:00 | heart_rate | 64 | /min | + + + +---------+ | 2022-08-12 00:00 | o2_saturation | 99 | % | + + + +---------+ | 2022-08-12 00:00 | respiration_rate | 16 | /min | + + + +---------+ | 2022-08-12 00:00 | temperature_metric | 36.72 | C | | | | | | + + + +---------+ | 2022-08-12 00:00 | | 98.1 | F | | | temperature_standar | | | | | d | | | + + + +---------+"
--- OUTSIDE RECORDS SUMMARY | ~2022-10-04 | XMS | Continuity of Care Document ---
Demographics + + + | Address | [address] | | | [place] [address] | + + + | Preferred Language | Unknown | + + + | Marital Status | | + + + | Latter Day Affiliation | Unknown | + + + | Race | White | + + + | Ethnic Group | Not or | + + + Author + + + | Author | [facility] | + + + | Organization | [facility] | + + + | Address | [address] | | | [place] [address] | + + + | Phone | | + + + Care Team Providers + + + + | Care Product Safety Professional Name | Role | Phone | [...] 2022-08-12 00:00 | No vaccine administered | [facility] | + + + + Medications + + + + | date | description | facility | + + + + | 2021-10-24 00:00 | OXYCODONE HCL | [facility] | + + + + | 2022-08-12 00:00 | OXYCODONE HCL | [facility] | + + + + | 2022-08-12 00:00 | oxycodone hydrochloride 5 | [facility] | | | MG Oral Tablet | | + + + + | 2021-10-24 00:00 | OXYCODONE | [facility] | | | HCL/ACETAMINOPHEN | | + + + + | 2022-08-12 00:00 | OXYCODONE | [facility] | | | HCL/ACETAMINOPHEN | | + + + + | 2022-08-12 00:00 | acetaminophen 325 MG / | [facility] | | | oxycodone hydrochloride 5 | | | | MG Oral Tab | | + + + + | 2019-01-31 00:00 | DIPHENHYDRAMINE HCL | [facility] | + + + + | 2021-10-24 00:00 | FLUTICASONE PROPIONATE 50 | [facility] | | | MCG | | + + + + | 2021-10-24 00:00 | ATENOLOL | [facility] | + + + + | 2022-08-12 00:00 | ATENOLOL | [facility] | + + + + | 2022-08-12 00:00 | atenolol 50 MG Oral Tablet | [facility] | | | | | + + + + | 2021-10-24 00:00 | LISINOPRIL | [facility] | + + + + | 2022-08-12 00:00 | LISINOPRIL | [facility] | + + + + | 2022-08-12 00:00 | lisinopril 40 MG Oral | [facility] | | | Tablet | | + + + + | 2021-10-24 00:00 | SIMVASTATIN | [facility] | + + + + | 2022-08-12 00:00 | SIMVASTATIN | [facility] | + + + + | 2022-08-12 00:00 | simvastatin 40 MG Oral | [facility] | | | Tablet | | + + + + | 2021-10-24 00:00 | OMEPRAZOLE | [facility] | + + + + | 2022-08-12 00:00 | OMEPRAZOLE | [facility] | + + + + | 2022-08-12 00:00 | omeprazole 20 MG Delayed | [facility] | | | Release Oral Capsule | | | | [Prilosec] | | + + + + | 2021-10-24 00:00 | NITROGLYCERIN | [facility] | + + + + | 2022-08-12 00:00 | NITROGLYCERIN | [facility] | + + + + | 2022-08-12 00:00 | nitroglycerin 0.4 MG | [facility] | | | Sublingual Tablet | | | | [Nitrostat] | | + + + + | 2021-10-24 00:00 | AMLODIPINE BESYLATE | [facility] | + + + + | 2022-08-12 00:00 | AMLODIPINE BESYLATE | [facility] | + + + + | 2022-08-12 00:00 | amlodipine 5 MG Oral | [facility] | | | Tablet [Norvasc] | | + + + + | 2021-10-24 00:00 | MELATONIN | [facility] | + + + + | 2021-10-24 00:00 | ASPIRIN | [facility] | + + + + | 2022-08-12 00:00 | ASPIRIN | [facility] | + + + + | 2022-08-12 00:00 | aspirin 81 MG Delayed | [facility] | | | Release Oral Tablet | | + + + + | 2021-10-24 00:00 | LISINOPRIL | [facility] | + + + + | 2021-10-24 00:00 | GUILHERME WOO. | [facility] | | | 0.05% | | + + + + | 2022-08-12 00:00 | CYCLOSPORINE OPTH. WOO. | [facility] | | | 0.05% | | + + + + | 2022-08-12 00:00 | cyclosporine 0.5 MG/ML | [facility] | | | Ophthalmic Suspension | | | | [Restasis] | | + + + + | 2021-10-24 00:00 | CHOLECALCIFEROL (VITAMIN | [facility] | | | D3) | | + + + + | 2022-08-12 00:00 | CHOLECALCIFEROL (VITAMIN | [facility] | | | D3) | | + + + + | 2022-08-12 00:00 | cholecalciferol 0.05 MG | [facility] | | | Oral Capsule | | + + + + | 2021-10-24 00:00 | CYCLOBENZAPRINE HCL | [facility] | + + + + | 2022-08-12 00:00 | CYCLOBENZAPRINE HCL | [facility] | + + + + | 2022-08-12 00:00 | cyclobenzaprine | [facility] | | | hydrochloride 5 MG Oral | | | | Tablet | | + + + + | 2021-10-24 00:00 | DILTIAZEM HCL | [facility] | + + + + | 2022-08-12 00:00 | DILTIAZEM HCL | [facility] | + + + + | 2022-08-12 00:00 | diltiazem hydrochloride 60 | [facility] | | | MG Oral Tablet | | + + + + | 2019-01-31 00:00 | methylPREDNISolone | [facility] | + + + + | 2021-10-24 00:00 | IMIPRAMINE HCL | [facility] | + + + + | 2022-08-12 00:00 | IMIPRAMINE HCL | [facility] | + + + + | 2022-08-12 00:00 | imipramine hydrochloride | [facility] | | | 25 MG Oral Tablet | | + + + + | 2021-10-24 00:00 | Rosuvastatin Calcium | [facility] | + + + + | 2022-08-12 00:00 | Rosuvastatin Calcium | [facility] | + + + + | 2022-08-12 00:00 | rosuvastatin calcium 5 MG | [facility] | | | Oral Tablet | | + + + + | 2022-08-12 00:00 | LOSARTAN POTASSIUM | [facility] | + + + + | 2022-08-12 00:00 | losartan potassium 100 MG | [facility] | | | Oral Tablet | | + + + + | 2021-10-24 00:00 | ACETAMINOPHEN WITH CODEINE | [facility] | | | | | + + + + | 2022-08-12 00:00 | ACETAMINOPHEN WITH CODEINE | [facility] | | | | | + + + + | 2022-08-12 00:00 | acetaminophen 300 MG / | [facility] | | | codeine phosphate 30 MG | | | | Oral Tablet | | + + + + Problems + + + + | date | description | facility | + + + + | 2015-01-26 00:00 | Chest pain at rest | [facility] | + + + + | 2015-01-26 00:00 | Chest pain at rest | [facility] | + + + + | 2015-01-26 00:00 | Chest pain at rest | [facility] | + + + + | 2016-12-25 00:00 | Pneumothorax on right | [facility] | + + + + | 2016-12-25 00:00 | Pneumothorax on right | [facility] | + + + + | 2016-12-25 00:00 | Pneumothorax on right | [facility] | + + + + | 2017-04-30 00:00 | Laceration | [facility] | + + + + | 2017-04-30 00:00 | Laceration | [facility] | + + + + | 2017-04-30 00:00 | Laceration | [facility] | + + + + | 2017-12-15 00:00 | Acute epigastric pain | [facility] | + + + + | 2017-12-15 00:00 | Acute epigastric pain | [facility] | + + + + | 2017-12-15 00:00 | Acute epigastric pain | [facility] | + + + + | 2019-01-31 00:00 | Angioedema of lips | [facility] | + + + + | 2019-01-31 00:00 | Angioedema of lips | [facility] | + + + + | 2019-01-31 00:00 | Angioedema of lips | [facility] | + + + + | 2021-10-24 00:00 | Nonspecific chest pain | [facility] | + + + + | 2021-10-24 00:00 | Nonspecific chest pain | [facility] | + + + + | 2021-10-24 00:00 | Nonspecific chest pain | 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 | + + + + | 2022-08-12 00:00 | Chest pain | [facility] | + + + + | [...] (missing) | | (unavailable | 09:19 | [facility] | | | | | ) | [...] | | plasma anion | 22:55 | [facility] | | | | | gap 4 [...] 2022-08-12 00:00 | Former smoker | [facility] | + + + + Vital Signs [...]
[~2022-10-04 23:30] MED LIST changes: +LOSARTAN POTAS100 MG PO
--- OUTSIDE RECORDS SUMMARY | 2022-10-04 23:38 | XMS ---
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 Care History Medical/Surgical 02/03/2019 [facility] Patient initially went to walk in clinic.\T\nbsp; Provider said he had the flu and sent him home.\T\nbsp; Patient called his insurance company and they told him to go directly to ER.\T\nbsp; Patient has follow up with Dr. Dumas on .\T\nbsp; 12/17/2017 [facility] - Patient is currently established with [facility]. If patient is seen in the ED during business hours. Please contact CHWs at [facility]. Care Recommendation: This patient has had [...] providing care. E.D. VISIT COUNT (12 MO.) 3 NIRMALA De [place]ón TOTAL 3 NOTE: Visits indicate total known visits. 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
[2022-10-04 23:51] LABS: BASOPHILS 0.9 % (0-2); EOSINOPHILS 2.9 % (0-6); HEMATOCRIT 43.3 % (35.0-50.0); LYMPHOCYTES 44.6 % (24-44); MCH 31.8 (27-36); MCHC 34.7 g/dl (30-36); MCV 91.8 fl (81-99); MONOCYTES 7.4 % (0-12); NEUTROPHILS 44.2 % (39-80); PLATELET COUNT 332 K/uL (140-440); RBC 4.71 M/ul (4.3-5.7); RDW 13.6 (10.5-15.0)
[2022-10-05 00:04] LABS: ALBUMIN 3.8 g/dL (3.4-5.0); ALBUMIN/GLOBULIN RATIO 1.03 (1.1-2.4); ANION GAP 15.2 (7-21); BILIRUBIN, TOTAL 0.4 ng/dL (0.2-1.0); BUN/CREATININE RATIO 12.59 (6.0-28.6); CALCIUM 8.8 mg/dL (8.5-10.1); CREATININE, SERUM 1.27 mg/dL (0.70-1.30); MAGNESIUM 1.9 mg/dL (1.8-2.4); POTASSIUM 3.2 mmol/L (3.5-5.1); PROTEIN, TOTAL 7.5 g/dL (6.4-8.2)
[2022-10-05] MEDS ORDERED: GAS-X125 MG PO (01:07)
[2022-10-05 02:30] VITALS: BP 125/56
--- NOTE | 2022-10-05 15:58 | EKG ---
[facility] [address] [place] [address] Signed Normal sinus rhythm Left axis deviation Nonspecific intraventricular block Minimal voltage criteria for LVH, may be normal variant ( Keno product ) Cannot rule out Septal infarct (cited on or before 04-OCT-2022) Abnormal ECG When compared with ECG of 11-AUG-2022 22:51, No significant change was found Confirmed by ELIZABETH HUNT MD ([id number]) on 10/05/2022 3:58:53 PM Electronically Signed By: ELIZABETH HUNT 10/05/22 1558 PATIENT NAME: JANETTE HURT Electrocardiogram DATE OF : 48 PHYSICIAN: ELIZABETH HUNT REPORT #: [id number] REPORT IS CONFIDENTIAL AND NOT TO BE RELEASED WITHOUT AUTHORIZATION
--- NOTE | 2022-10-05 15:59 | EKG ---
[facility] [address] [place] [address] Signed Sinus bradycardia with 1st degree AV block Left axis deviation Left bundle branch block Abnormal ECG When compared with ECG of 04-OCT-2022 23:28, (Unconfirmed) GA interval has increased T wave inversion now evident in Inferior leads Confirmed by ELIZABETH HUNT MD ([id number]) on 10/05/2022 3:59:02 PM Electronically Signed By: ELIZABETH HUNT 10/05/22 1559 PATIENT NAME: JANETTE HURT ERIC Electrocardiogram DATE OF : 48 PHYSICIAN: ELIZABETH HUNT REPORT #: [id number] REPORT IS CONFIDENTIAL AND NOT TO BE RELEASED WITHOUT AUTHORIZATION
== END 2022-10-05 02:30 | disposition home or self-care (01) ==
LOC: ED 23:30
PROVIDERS: Internal Medicine
DX: R07.89 Other chest pain (principal); I10 Essential (primary) hypertension; K21.9 Gastro-esophageal reflux disease without esophagitis; Z87.891 Personal history of nicotine dependence; Z88.8 Allergy status to other drugs, medicaments and biological substances; Z88.6 Allergy status to analgesic agent; Z79.899 Other long term (current) drug therapy; Z79.82 Long term (current) use of aspirin
CPT/HCPCS: 36415; 71045; 80053; 83735; 84484; 85025; 93005; 93010; 99285-25

== ENCOUNTER 2023-01-14 10:34 | Emergency (ER) | payer MEDICARE, BC, OTHER ==
[~2023-01-14] VITALS: Ht 190.5 cm; Wt 95.2 kg
[~2023-01-14 10:34] MED LIST changes: +GAS-X125 MG PO
--- OUTSIDE RECORDS SUMMARY | 2023-01-14 10:42 | XMS ---
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 Care History Medical/Surgical 02/03/2019 [facility] Patient initially went to walk in clinic.\T\nbsp; Provider said he had the flu and sent him home.\T\nbsp; Patient called his insurance company and they told him to go directly to ER.\T\nbsp; Patient has follow up with Dr. Dumas on .\T\nbsp; 12/17/2017 [facility] - Patient is currently established with [facility]. If patient is seen in the ED during business hours. Please contact [facility] at [facility]. Care Recommendation: This patient has had 5 or more Emergency Department visits in the last 12 months.\T\nbsp; Patient requires education on the scope and purpose of the ED as an acute care provider not a Primary Care Provider and should not be utilized for chronic conditions.\T\nbsp; These are guidelines and the provider should exercise clinical judgment when providing care. EHerminiaD. VISIT COUNT (12 MO.) 3 [facility] [place] TOTAL 3 NOTE: Visits indicate total known visits. 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
[2023-01-14] MEDS ORDERED: DILTIAZEM HCL120 MG PO (10:47)
[2023-01-14 10:55] LABS: BASOPHILS 0.4 % (0-2); EOSINOPHILS 1.8 % (0-6); HEMATOCRIT 43.7 % (35.0-50.0); HEMOGLOBIN 15.4 g/dL (12.0-18.0); LYMPHOCYTES 17.7 % (24-44); MCH 32.3 (27-36); MCHC 35.3 g/dl (30-36); MCV 91.6 fl (81-99); MONOCYTES 9.3 % (0-12); NEUTROPHILS 70.8 % (39-80); PLATELET COUNT 320 K/uL (140-440); RBC 4.78 M/ul (4.3-5.7); RDW 13.5 (10.5-15.0)
[2023-01-14 11:06] LABS: ALBUMIN 4.3 g/dL (3.4-5.0); ALBUMIN/GLOBULIN RATIO 1.16 (1.1-2.4); ANION GAP 11.8 (7-21); BILIRUBIN, TOTAL 0.4 ng/dL (0.2-1.0); BUN/CREATININE RATIO 9.35 (6.0-28.6); CALCIUM 8.9 mg/dL (8.5-10.1); CREATININE, SERUM 1.39 mg/dL (0.70-1.30); POTASSIUM 3.8 mmol/L (3.5-5.1)
[2023-01-14 11:49] VITALS: BP 171/69
--- NOTE | 2023-01-14 13:36 | EKG ---
[facility] [address] [place] [address] Signed Sinus rhythm with 1st degree AV block Left bundle branch block Abnormal ECG When compared with ECG of 05-OCT-2022 02:09, No significant change was found Confirmed by Roderick Boudreaux MD () on 01/14/2023 1:36:12 PM Electronically Signed By: RODERICK BOUDREAUX MD 01/14/23 1336 PATIENT NAME: BLUJANETTE ERIC Electrocardiogram DATE OF : 48 PHYSICIAN: RODERICK BOUDREAUX MD REPORT #: [id number] REPORT IS CONFIDENTIAL AND NOT TO BE RELEASED WITHOUT AUTHORIZATION
== END 2023-01-14 11:50 | disposition home or self-care (01) ==
LOC: ED 10:34
PROVIDERS: Emergency Medicine
DX: R07.9 Chest pain, unspecified (principal); I10 Essential (primary) hypertension; Z87.891 Personal history of nicotine dependence; Z88.6 Allergy status to analgesic agent; Z88.8 Allergy status to other drugs, medicaments and biological substances; Z79.899 Other long term (current) drug therapy; Z79.82 Long term (current) use of aspirin
CPT/HCPCS: 36415; 80053; 84484; 85025; 93005; 93010

== ENCOUNTER 2023-03-02 17:58 | Emergency (ER) | payer MEDICARE, BC, OTHER ==
[~2023-03-02] VITALS: Ht 190.5 cm; Wt 98.0 kg
[~2023-03-02 17:58] MED LIST changes: +DILTIAZEM HCL120 MG PO
[2023-03-02 18:17] LABS: BASOPHILS 0.7 % (0-2); EOSINOPHILS 1.1 % (0-6); HEMATOCRIT 41.8 % (35.0-50.0); HEMOGLOBIN 14.7 g/dL (12.0-18.0); LYMPHOCYTES 25.7 % (24-44); MCH 32.3 (27-36); MCHC 35.2 g/dl (30-36); MCV 91.7 fl (81-99); MONOCYTES 9.5 % (0-12); PLATELET COUNT 312 K/uL (140-440); RBC 4.56 M/ul (4.3-5.7); RDW 13.5 (10.5-15.0)
[2023-03-02 18:32] LABS: ALBUMIN/GLOBULIN RATIO 1.05 (1.1-2.4); ANION GAP 14.6 (7-21); BILIRUBIN, TOTAL 0.3 ng/dL (0.2-1.0); BUN/CREATININE RATIO 12.5 (6.0-28.6); CALCIUM 8.8 mg/dL (8.5-10.1); CREATININE, SERUM 1.28 mg/dL (0.70-1.30); POTASSIUM 3.6 mmol/L (3.5-5.1); PROTEIN, TOTAL 7.8 g/dL (6.4-8.2)
[2023-03-02 19:40] VITALS: BP 165/71
--- NOTE | 2023-03-04 15:21 | EKG ---
[facility] [address] [place] [address] Signed Normal sinus rhythm Left axis deviation Left bundle branch block Abnormal ECG No previous ECGs available Confirmed by ELIZABETH HUNT MD ([id number]) on 03/04/2023 3:21:21 PM Electronically Signed By: ELIZABETH HUNT 03/04/23 1521 PATIENT NAME: JANETTE HURT ERIC Electrocardiogram DATE OF : 48 PHYSICIAN: ELIZABETH HUNT REPORT #: [id number] REPORT IS CONFIDENTIAL AND NOT TO BE RELEASED WITHOUT AUTHORIZATION
== END 2023-03-02 19:40 | disposition home or self-care (01) ==
LOC: ED 17:58
PROVIDERS: Emergency Medicine
DX: R07.89 Other chest pain (principal); I10 Essential (primary) hypertension; Z88.8 Allergy status to other drugs, medicaments and biological substances; Z88.6 Allergy status to analgesic agent; Z87.891 Personal history of nicotine dependence; Z79.82 Long term (current) use of aspirin; Z79.899 Other long term (current) drug therapy
CPT/HCPCS: 36415; 71045; 80053; 83690; 84484; 85025; 93005; 93010; 99285-25

== ENCOUNTER 2024-02-24 10:53 | Emergency (ER) | payer MEDICARE, BC, OTHER ==
[~2024-02-24] VITALS: Ht 190.5 cm; Wt 98.9 kg
[2024-02-24 11:10] LABS: BASOPHILS 0.6 % (0-2); HEMATOCRIT 43.5 % (35.0-50.0); HEMOGLOBIN 15.3 g/dL (12.0-18.0); LYMPHOCYTES 22.4 % (24-44); MCH 32.8 (27-36); MCHC 35.3 g/dl (30-36); MONOCYTES 10.1 % (0-12); NEUTROPHILS 64.9 % (39-80); PLATELET COUNT 305 K/uL (140-440); RBC 4.68 M/ul (4.3-5.7); RDW 13.8 (10.5-15.0)
[2024-02-24] MEDS ORDERED: PANTOPRAZOLE SO40 MG PO (11:10)
[2024-02-24 11:25] LABS: ALBUMIN 4.1 g/dL (3.4-5.0); ALBUMIN/GLOBULIN RATIO 1.05 (1.1-2.4); ANION GAP 13.6 (7-21); BILIRUBIN, TOTAL 0.5 ng/dL (0.2-1.0); BUN/CREATININE RATIO 10.93 (6.0-28.6); CALCIUM 8.9 mg/dL (8.5-10.1); CREATININE, SERUM 1.28 mg/dL (0.70-1.30); MAGNESIUM 1.8 mg/dL (1.8-2.4); POTASSIUM 4.6 mmol/L (3.5-5.1)
[2024-02-24 12:17] VITALS: BP 146/64
--- NOTE | 2024-02-27 20:25 | EKG ---
[facility] [address] [facility] [place] [address] Signed Normal sinus rhythm Left bundle branch block Abnormal ECG When compared with ECG of 02-MAR-2023 18:01, No significant change was found Confirmed by Miguel Maier DO ([id number]) on 02/27/2024 8:24:58 PM Electronically Signed By: MIGUEL MAIER DO 02/27/242024 PATIENT NAME: JANETTE HURT Electrocardiogram DATE OF : 48 PHYSICIAN: MIGUEL MAIER DO REPORT #: [id number] REPORT IS CONFIDENTIAL AND NOT TO BE RELEASED WITHOUT AUTHORIZATION
== END 2024-02-24 12:18 | disposition home or self-care (01) ==
LOC: ED 10:53
PROVIDERS: Emergency Medicine
DX: R07.9 Chest pain, unspecified (principal); I10 Essential (primary) hypertension; K21.9 Gastro-esophageal reflux disease without esophagitis; Z87.891 Personal history of nicotine dependence; Z88.8 Allergy status to other drugs, medicaments and biological substances; Z88.6 Allergy status to analgesic agent; Z79.82 Long term (current) use of aspirin; Z79.899 Other long term (current) drug therapy
CPT/HCPCS: 36415; 71045; 80053; 83735; 84484; 85025; 93005; 93010; 99285-25

== ENCOUNTER 2024-08-19 08:29 | Emergency (ER) | payer MEDICARE, BC ==
[~2024-08-19] VITALS: Ht 190.5 cm; Wt 90.9 kg
[~2024-08-19 08:29] MED LIST changes: +PANTOPRAZOLE SO40 MG PO
[2024-08-19 08:47] LABS: BASOPHILS 0.6 % (0.2-1.2); EOSINOPHILS 3.1 % (0.8-7.0); HEMATOCRIT 43.9 % (40.1-51.0); HEMOGLOBIN 15.5 g/dL (13.7-17.5); LYMPHOCYTES 28.8 % (21.8-53.1); MCH 31.4 PG (25.7-32.2); MCHC 35.3 g/dL (32.3-36.5); MONOCYTES 9.7 % (5.3-12.2); NEUTROPHILS 57.4 % (34.0-67.9); PLATELET COUNT 342 K/uL (163-337); RBC 4.93 M/uL (4.63-6.08)
[2024-08-19] MEDS ORDERED: FAMOTIDINE40 MG PO (08:57)
[2024-08-19] MEDS ORDERED: MELATONIN2.5 MG PO (08:58)
[2024-08-19] MEDS ORDERED: [UNRECOGNIZED DRUG - OTHER] PO (08:59)
[2024-08-19] MEDS ORDERED: PANTOPRAZOLE SODIUM 40 MG TABEC PO ONE (09:00)
[2024-08-19 09:03] LABS: ALBUMIN 4.2 g/dL (3.4-5.0); ANION GAP 14.8 (7-21); BILIRUBIN, TOTAL 0.4 mg/dL (0.2-1.0); BUN/CREATININE RATIO 10.76 (6.0-28.6); CALCIUM 9.1 mg/dL (8.5-10.1); CREATININE, SERUM 1.3 mg/dL (0.70-1.30); POTASSIUM 3.8 mmol/L (3.5-5.1); PROTEIN, TOTAL 8.4 g/dL (6.4-8.2)
[2024-08-19 11:23] VITALS: BP 155/70
--- NOTE | 2024-08-20 19:07 | EKG ---
[facility] [address] [facility] [place] [address] Signed Normal sinus rhythm Nonspecific intraventricular block Minimal voltage criteria for LVH, may be normal variant ( Kake product ) Abnormal ECG When compared with ECG of 24-FEB-2024 10:55, Confirmed by Zhang Maier DO ([id number]) on 08/20/2024 7:07:29 PM Electronically Signed By: ZHANG MAIER DO 08/20/24 1907 PATIENT NAME: BLUJANETTE ERIC Electrocardiogram DATE OF : 48 PHYSICIAN: ZHANG MAIER DO REPORT #: [id number] REPORT IS CONFIDENTIAL AND NOT TO BE RELEASED WITHOUT AUTHORIZATION
== END 2024-08-19 11:24 | disposition home or self-care (01) ==
LOC: ED 08:29
PROVIDERS: Emergency Medicine
DX: R07.89 Other chest pain (principal); I10 Essential (primary) hypertension; K21.9 Gastro-esophageal reflux disease without esophagitis; Z87.891 Personal history of nicotine dependence; Z88.8 Allergy status to other drugs, medicaments and biological substances; Z79.82 Long term (current) use of aspirin; Z79.899 Other long term (current) drug therapy
CPT/HCPCS: 36415; 71045; 80053; 84484; 85025; 93005; 93010; 99285-25; A9270